=== PATIENT | male | born 1955 | race Caucasian/White ===

== ENCOUNTER 2020-11-27 07:22 | Outpatient (REF) | payer OTHER, SELFPAY ==
[2020-11-27 08:09] LABS: MANUAL DIFF FLAG NO
[2020-11-27 08:16] LABS: Basophils Absolute Auto 0.1 X10*3/uL (0.0-0.2); Basophils Percent Auto 0.9 % (0-2); Eosinophils Absolute Auto 0.2 X10*3/uL (0.0-0.4); Eosinophils Percent Auto 2.8 % (0-4); Hematocrit 49.8 % (42-52); Hemoglobin 17.3 g/dl (14.0-18.0); Imm Gran Abs Auto 0.03 X10*3/uL (0.00-0.03); Imm Gran Pct Auto 0.4 % (0.0-0.4); Lymphocytes Absolute Auto 1.4 X10*3/uL (1.2-4.9); Lymphocytes Percent Auto 18.4 % (20-40); Mean Corpuscular HGB Conc 34.7 g/dl (31.0-36.0); Mean Corpuscular Hemoglobin 31.1 pg (27.0-33.0); Mean Corpuscular Volume 89.6 fL (80-98); Mean Platelet Volume 10.9 fL (9.4-12.4); Monocytes Absolute Auto 0.5 X10*3/uL (0.1-1.2); Monocytes Percent Auto 6.4 % (2-11); Neutrophils Absolute Auto 5.4 X10*3/uL (2.0-8.3); Neutrophils Percent Auto 71.1 % (45-73); Platelet Count 186 X10*3/uL (160-400); Red Blood Count 5.56 X10*6/uL (4.60-5.80); Red Cell Distribution Width 12.2 % (11.0-16.0); White Blood Count 7.5 X10*3/uL (4.8-10.8)
[2020-11-27 08:28] LABS: Estimated Average Glucose 117 mg/dL; Hemoglobin A1c % 5.7 %
[2020-11-27 08:33] LABS: Glucose Urine UA NEG (NEG); Leukocyte Esterase Urine NEG (NEG); Nitrite Urine NEG (NEG); Specific Gravity - Urine 1.025 (1.005-1.025); Urine Blood NEG (NEG); Urine Ketones NEG (NEG); Urine Protein NEG (NEG-TRACE)
[2020-11-27 08:46] LABS: RBC Urine 0 /HPF (0); WBC Urine 0 /HPF (0-4)
[2020-11-27 08:47] LABS: Alanine Aminotransferase 37 U/L (0-40); Albumin Level 4.5 g/dL (3.5-5.0); Alkaline Phosphatase 74 U/L (39-117); Anion Gap 15 (12-20); Aspartate Amino Transferase 32 U/L (5-37); Bilirubin Total 2.1 mg/dL (0.0-1.0); Blood Urea Nitrogen 20 mg/dL (9-16); Calcium 9.2 mg/dL (8.4-10.2); Carbon Dioxide 27 mmol/L (22-29); Chloride 101 mmol/L (96-108); Cholesterol 124 mg/dL; Estimated Glomerular Filt Rate > 60; Glucose Fasting 115 mg/dL (60-99); HDL Cholesterol 40 mg/dL; LDL Cholesterol Calculated 55 mg/dl; Potassium 5.1 mmol/l (3.3-5.1); Sodium 138 mmol/L (135-145); Total Protein 7.7 g/dL (6.5-8.0); Triglycerides 148 mg/dL; Uric Acid 7.8 mg/dL (3.4-7.0)
[2020-11-27 08:55] LABS: Appearance Urine CLEAR; Color Urine YELLOW
[2020-11-27 09:01] LABS: Creatinine Urine 170.22 mg/dL; Microalbum/Creatinine Ratio Ur 9.3 ug/mg cr
[2020-11-27 09:08] LABS: Thyroid Stimulating Hormone 0.61 uIU/mL (0.32-4.0); Vitamin D 25-OH Total 38.1 ng/mL (>30)
== END 2020-11-27 07:23 | disposition home or self-care (01) ==
LOC: HO.LAB 07:22
PROVIDERS: PCP Internal Medicine; Visit Provider Internal Medicine
DX: Z00.00 Encounter for general adult medical examination without abnormal findings (principal); I10 Essential (primary) hypertension; E11.9 Type 2 diabetes mellitus without complications; M70.22 Olecranon bursitis, left elbow
CPT/HCPCS: 36415; 80053; 80061; 81001; 82043; 82306; 83036; 84443; 84550; 85025

== ENCOUNTER 2021-10-04 13:51 | Outpatient (REF) | payer OTHER, SELFPAY ==
--- NOTE | ~2021-10-04 | CT_ITS ---
EXAMINATION: CT CHEST SCREENING CLINICAL INFORMATION: Current smoker. 23 pack-year history. COMPARISON: None. TECHNIQUE: Multidetector volumetric CT imaging of the chest is performed without contrast using low dose technique. Additional 2D coronal and sagittal reformatted images and axial 3D maximum intensity projection (MIP) images are generated on the CT workstation. This CT examination was performed using dose optimization techniques as appropriate, variously including the following: *Automated exposure control *Adjustment of mA and/or kV according to patient size (this includes techniques or standardized protocols for targeted exams where dose is matched to indication/reason for exam; i.e. extremities or head) *Use of iterative reconstruction technique DLP: 53 mGy-cm FINDINGS: LUNGS: There is evidence of emphysema. There are 2 small 2 mm peripheral or subpleural left lower lobe nodules adjacent to the fissure axial image 251 and 216 series 5. There is a 2 mm peripheral or subpleural left lower lobe nodule axial image 306 series 5. The lungs are otherwise clear. No endobronchial or endotracheal lesion is seen. MEDIASTINUM: There is coronary artery calcification. The mediastinum is otherwise normal. PLEURA: There is no pleural effusion. No pleural mass or thickening. AXILLA: No lymphadenopathy. UPPER ABDOMEN: The gallbladder has been removed. There are calcifications in both kidneys probably representing vascular calcifications. OSSEOUS STRUCTURES: There are degenerative changes of the spine. CT/CT lung screening IMPRESSION: Mild emphysema. Small left lower lobe pulmonary nodules or micronodules probably representing subpleural lymph nodes. Coronary artery calcification. ASSESSMENT: Lung-RADS category 2: Benign RECOMMENDATION: Annual low-dose chest CT follow-up recommended.
== END 2021-10-04 13:52 | disposition home or self-care (01) ==
LOC: HO.CT 13:51
PROVIDERS: PCP Internal Medicine; Visit Provider Physician Assistant Medical
DX: Z87.891 Personal history of nicotine dependence (principal)
CPT/HCPCS: 71271; G0296

== ENCOUNTER 2021-11-15 10:49 | Day surgery (SDC) | payer OTHER, SELFPAY ==
[2021-11-08 16:08] VITALS: BMI 26.4
[2021-11-08 16:19] VITALS: BMI 25.8
--- NOTE | 2021-11-13 13:43 | HO.ANESPROP2 ---
Documented by User: Zahra Rodas NP 11/13/21 13:44 HPI - Anesthesia Eval Consult details Narrative: 66yo M for Colonoscopy PMFSH Active Problems Active Problems: All Active Problems (Updated 11/08/21 @ 16:18 by Tran Hawkins, RN) Personal history of nicotine dependence (Acute) Past Medical History Medical History (Updated 11/08/21 @ 16:18 by Tran Hawkins, RN) Diabetes mellitus type 2, diet-controlled (~2014) Hypertension Personal history of nicotine dependence PONV (postoperative nausea and vomiting) Tubular adenoma of colon (~2017) Family History Family History (Updated 09/19/21 @ 14:04 by Virginie Saunders PA-C) Father Hypertension DM2 (diabetes mellitus, type 2) Mother DM2 (diabetes mellitus, type 2) Hypertension Hemochromatosis Brother DM2 (diabetes mellitus, type 2) Sister DM2 (diabetes mellitus, type 2) Surgical History Surgical History (Updated 11/08/21 @ 16:18 by Tran Hawkins RN) History of cataract surgery History of cholecystectomy History of colonoscopy History of nasal septoplasty Hx of bilateral cataract extraction S/P tendon repair Social History Social History (Updated 10/04/21 @ 13:53 by Virginie Saunders PA-C) Alcohol intake: current Alcohol intake frequency: does not drink Patient Tobacco Use Status: Former Tobacco user Quit Date: 2009 Tobacco use type: Cigarette Years Smoked: 25pyh, onset 25yo, 3/4-1ppd x 30yrs, quit 2009 Have you been hit, kicked, punched, or otherwise hurt by someone within the past year? If so, by whom?: No Are you DNR?: No Advance Directives: No Advance Directives Information Provided: Yes Advance Directives on File: No Meds Allergies Allergy/AdvReac Type Severity Reaction Status Date / Time No Known Allergies Allergy Verified 11/08/21 16:19 [No Known Allergies*] Home Medications Medication Instructions Recorded Confirmed Last Taken Type atorvastatin 10 mg tablet 1 tab PO DAILY 11/08/21 11/08/21 Unknown History cholecalciferol (vitamin D3) 50 50 mcg PO DAILY 11/08/21 11/08/21 Unknown History mcg (2,000 unit) capsule (Vitamin D3) lisinopril 10 mg tablet 1 tab PO DAILY 11/08/21 11/08/21 Unknown History Exam Exam Date and Time: November 13, 2021 1343 Height,Weight and Vital Signs: Height 5 ft 8 in Weight 77.111 kg Assessment and Plan Assessment Anesthesia Assessment: Chart Reviewed Documented by User: Hailey Sherwood MD 11/15/21 11:09 [facility] Past Medical History Medical History (Updated 11/08/21 @ 16:18 by Tran Hawkins, LOI) Diabetes mellitus type 2, diet-controlled (~2014) Hypertension Personal history of nicotine dependence PONV (postoperative nausea and vomiting) Tubular adenoma of colon (~2017) Family History Family History (Updated 09/19/21 @ 14:04 by Virginie Saunders PA-C) Father Hypertension DM2 (diabetes mellitus, type 2) Mother DM2 (diabetes mellitus, type 2) Hypertension Hemochromatosis Brother DM2 (diabetes mellitus, type 2) Sister DM2 (diabetes mellitus, type 2) Family history of problems with anesthesia: No Surgical History Surgical History (Updated 11/08/21 @ 16:18 by Tran Hawkins RN) History of cataract surgery History of cholecystectomy History of colonoscopy History of nasal septoplasty Hx of bilateral cataract extraction S/P tendon repair History of Problems with Anesthesia: No Social History Social History (Updated 10/04/21 @ 13:53 by Virginie Saunders PA-C) Alcohol intake: current Alcohol intake frequency: does not drink Patient Tobacco Use Status: Former Tobacco user Quit Date: 2009 Tobacco use type: Cigarette Years Smoked: 25pyh, onset 25yo, 3/4-1ppd x 30yrs, quit 2009 Have you been hit, kicked, punched, or otherwise hurt by someone within the past year? If so, by whom?: No Are you DNR?: No Advance Directives: No Advance Directives Information Provided: Yes Advance Directives on File: No Meds Allergies Allergy/AdvReac Type Severity Reaction Status Date / Time No Known Allergies Allergy Verified 11/08/21 16:19 [No Known Allergies*] Home Medications Medication Instructions Recorded Confirmed Last Taken Type atorvastatin 10 mg tablet 1 tab PO DAILY 11/08/21 11/08/21 Unknown History cholecalciferol (vitamin D3) 50 50 mcg PO DAILY 11/08/21 11/08/21 Unknown History mcg (2,000 unit) capsule (Vitamin D3) lisinopril 10 mg tablet 1 tab PO DAILY 11/08/21 11/08/21 Unknown History Exam Airway Mallampati Class: II TM Dist: >3cm Neck ROM: Full Heart: rrr Lungs: cta Assessment and Plan Assessment Anesthesia Assessment: Anesthesia Plan Discussed and Chart Reviewed Final Anesthetic Review Family History of Problems with Anesthesia: No History of Problems with Anesthesia: No NPO: Yes ASA Class: II Final Preanesthetic Review: No Changes in Pt Med Stat, Meds/Allgs Chart Reviewed and Consent Obtained/Reviewed Patient Risk: Intermediate Procedure Risk: Intermediate Anesthetic Plan Anesthetic Plan: MAC: Disposition: Standard PACU
[2021-11-15 11:13] VITALS: BP 155/84; PULSE 77; RESP 16; TEMP 36.8; O2SAT 98
[2021-11-15] MEDS: Lactated Ringers 1,000 ML 100 ML IVCONT (11:26)
[2021-11-15 13:04] VITALS: BP 108/60; PULSE 65; RESP 16; TEMP 36.8; O2SAT 98
--- NOTE | 2021-11-15 13:07 | PM.OP ---
Brief Operative Note Date of Service: 11/15/21 Pre-op diagnosis: Screening Post-op diagnosis: other (Colon polyps) Procedure: Colonoscopy to cecum and TI with biopsy and removal of polyps Surgeon: Robbie Singh Anesthesia: MAC Was an Loan Servicing Representative used for this Procedure?: No Estimated blood loss (mL): 2.0 Pathology: other (A. Transverse colon polyps B. Ascending colon polyp C. Polyps at 20cm) Condition: stable Disposition: PACU
[2021-11-15 13:19] VITALS: BP 122/70; PULSE 60; RESP 16; TEMP 36.8; O2SAT 98
--- NOTE | 2021-11-15 20:39 | OP_ITS ---
SURGEON: Robbie Singh MD INDICATIONS: The patient presents for evaluation of colorectal cancer screening and personal history of tubular adenoma of the colon. Full consent has been obtained from him for this, including risks of bleeding and perforation. PREOPERATIVE DIAGNOSIS: POSTOPERATIVE DIAGNOSIS: PROCEDURE PERFORMED: Colonoscopy to cecum and terminal ileum with biopsy and removal of polyps. ESTIMATED BLOOD LOSS: COMPLICATIONS: ANESTHESIA: Monitored anesthesia care. ASSISTANTS: SPECIMENS: PREOPERATIVE DIAGNOSES: Colorectal cancer screening and personal history of tubular adenoma of the colon. POSTOPERATIVE DIAGNOSES: Colorectal cancer screening and personal history of tubular adenoma of the colon, small colon polyps, diverticulosis, and small internal hemorrhoids. DESCRIPTION OF PROCEDURE: The patient was placed in the left lateral decubitus position. The digital rectal exam revealed no abnormalities. The Olympus video pediatric colonoscope was entered into the rectum and advanced easily to the cecum. Once in the cecum, I did identify normal-appearing cecal pouch with appendiceal orifice and a normal-appearing ileocecal valve. The terminal ileum was cannulated and appeared normal. Scope was withdrawn back in the colon. The entire cecum and ileocecal valve appeared normal. The scope was slowly withdrawn assessing all mucosal surfaces carefully. Preparation was excellent. In the ascending colon, transverse colon, and at 20 cm, were flat less than 5 mm polyps, which were all biopsied and completely removed with cold biopsy forceps. There was no sign of any colitis nor angiodysplasia. There was a mild amount of sigmoid diverticulosis. In the rectum, scope was retroflexed visualizing small internal hemorrhoids, but no other pathology. The rectal mucosa appeared normal. The scope was straightened out and withdrawn from the patient. He tolerated the procedure well and was returned to the recovery area in stable condition. IMPRESSION: 1. Small colon polyps, status post biopsy and removal. 2. Diverticulosis. 3. Internal hemorrhoids. PLAN: The results of the biopsies will be checked. Given his previous history and today's findings, I would recommend a repeat colonoscopy within 5 years for further screening purposes. He will otherwise see me on a p.r.n. basis. This has been discussed with his . MD REED Duarte/MEGANL / [id number]
== END 2021-11-15 13:45 | disposition home or self-care (01) ==
PROVIDERS: PCP Internal Medicine; Visit Provider Internal Medicine
PROC: 0DJD8ZZ Inspection of Lower Intestinal Tract, Via Natural or Artificial Opening Endoscopic (ICD-10-PCS; CPT 45378; principal; 2021-11-15 12:10)
DX: Z12.11 Encounter for screening for malignant neoplasm of colon (principal); Z86.010 Personal history of colon polyps; D12.2 Benign neoplasm of ascending colon; D12.3 Benign neoplasm of transverse colon; D12.5 Benign neoplasm of sigmoid colon; K57.30 Diverticulosis of large intestine without perforation or abscess without bleeding; K64.8 Other hemorrhoids; E11.9 Type 2 diabetes mellitus without complications; I10 Essential (primary) hypertension; Z79.899 Other long term (current) drug therapy; Z87.891 Personal history of nicotine dependence; Z90.49 Acquired absence of other specified parts of digestive tract
CPT/HCPCS: 45380; 88305; J3010

== ENCOUNTER 2021-12-19 07:34 | Outpatient (REF) | payer OTHER, SELFPAY ==
[2021-12-19 07:59] LABS: MANUAL DIFF FLAG NO
[2021-12-19 08:38] LABS: Basophils Absolute Auto 0.1 X10*3/uL (0.0-0.2); Basophils Percent Auto 0.7 % (0-2); Eosinophils Absolute Auto 0.2 X10*3/uL (0.0-0.4); Eosinophils Percent Auto 2.6 % (0-4); Hemoglobin 16.6 g/dl (14.0-18.0); Imm Gran Abs Auto 0.06 X10*3/uL (0.00-0.03); Imm Gran Pct Auto 0.9 % (0.0-0.4); Lymphocytes Absolute Auto 1.3 X10*3/uL (1.2-4.9); Lymphocytes Percent Auto 18.3 % (20-40); Mean Corpuscular HGB Conc 33.9 g/dl (31.0-36.0); Mean Corpuscular Hemoglobin 30.6 pg (27.0-33.0); Mean Corpuscular Volume 90.4 fL (80.0-98.0); Monocytes Absolute Auto 0.4 X10*3/uL (0.1-1.2); Monocytes Percent Auto 5.9 % (2-11); Neutrophils Percent Auto 71.6 % (45-73); Platelet Count 236 X10*3/uL (160-400); Red Blood Count 5.42 X10*6/uL (4.60-5.80); Red Cell Distribution Width 12.2 % (11.0-16.0); White Blood Count 6.9 X10*3/uL (4.8-10.8)
[2021-12-19 08:57] LABS: Estimated Average Glucose 137 mg/dL; Hemoglobin A1c % 6.4 %
[2021-12-19 09:02] LABS: Appearance Urine CLEAR; Color Urine YELLOW; Glucose Urine UA NEG (NEG); Leukocyte Esterase Urine NEG (NEG); Nitrite Urine NEG (NEG); Specific Gravity - Urine >= 1.030 (1.005-1.025); Urine Blood NEG (NEG); Urine Ketones NEG (NEG); Urine Protein NEG (NEG-TRACE)
[2021-12-19 09:25] LABS: PSA,Total (Free>4and<10) 0.33 ng/mL (0.00-4.00); Thyroid Stimulating Hormone 0.63 uIU/mL (0.32-4.0); Vitamin D 25-OH Total 36.2 ng/mL (>30)
[2021-12-19 09:28] LABS: Creatinine Urine 190.44 mg/dL
[2021-12-19 09:50] LABS: Alanine Aminotransferase 31 U/L (0-40); Albumin Level 4.3 g/dL (3.5-5.0); Alkaline Phosphatase 74 U/L (39-117); Anion Gap 12 (12-20); Aspartate Amino Transferase 26 U/L (5-37); Bilirubin Total 1.5 mg/dL (0.0-1.0); Blood Urea Nitrogen 19 mg/dL (9-16); Calcium 9.9 mg/dL (8.4-10.2); Carbon Dioxide 29 mmol/L (22-29); Chloride 105 mmol/L (96-108); Cholesterol 123 mg/dL; Estimated Glomerular Filt Rate 55; Glucose Fasting 135 mg/dL (60-99); HDL Cholesterol 36 mg/dL; LDL Cholesterol Calculated 70 mg/dl; Potassium 6.1 mmol/L (3.3-5.1); Sodium 140 mmol/L (135-145); Total Protein 7.6 g/dL (6.5-8.0); Triglycerides 86 mg/dL
== END 2021-12-19 07:35 | disposition home or self-care (01) ==
LOC: HO.LAB 07:34
PROVIDERS: PCP Internal Medicine; Visit Provider Internal Medicine
DX: Z12.5 Encounter for screening for malignant neoplasm of prostate (principal); I10 Essential (primary) hypertension; E11.9 Type 2 diabetes mellitus without complications; Z87.891 Personal history of nicotine dependence
CPT/HCPCS: 36415; 80053; 80061; 81003; 82043; 82306; 83036; 84153; 84443; 85025

== ENCOUNTER 2021-12-19 14:14 | Emergency (ER) | payer OTHER, SELFPAY ==
[2021-12-19 14:44] VITALS: BP 148/78; PULSE 68; RESP 19; TEMP 36.6; O2SAT 99; BMI 26.6
--- NOTE | 2021-12-19 14:49 | ECG_ITS ---
Test Reason : high k Blood Pressure : / mmHG Vent. Rate : 064 BPM Atrial Rate : 064 BPM P-R Int : 204 ms QRS Dur : 096 ms QT Int : 414 ms P-R-T Axes : 041 -21 041 degrees QTc Int : 427 ms Normal sinus rhythm Normal ECG When compared with ECG of 29-JUL-2015 21:17, Vent. rate has decreased BY 37 BPM Nonspecific T wave abnormality no longer evident in Lateral leads Referred By: Generic ED Physician Electronically Signed By:Adair Marin
[2021-12-19 15:03] LABS: MANUAL DIFF FLAG NO
[2021-12-19 15:05] LABS: Basophils Absolute Auto 0.1 X10*3/uL (0.0-0.2); Basophils Percent Auto 0.7 % (0-2); Eosinophils Absolute Auto 0.2 X10*3/uL (0.0-0.4); Eosinophils Percent Auto 2.5 % (0-4); Hemoglobin 16.4 g/dl (14.0-18.0); Imm Gran Abs Auto 0.06 X10*3/uL (0.00-0.03); Imm Gran Pct Auto 0.8 % (0.0-0.4); Lymphocytes Absolute Auto 1.7 X10*3/uL (1.2-4.9); Lymphocytes Percent Auto 23.3 % (20-40); Mean Corpuscular HGB Conc 35.7 g/dl (31.0-36.0); Mean Corpuscular Hemoglobin 31.8 pg (27.0-33.0); Mean Corpuscular Volume 89.3 fL (80.0-98.0); Mean Platelet Volume 9.6 fL (9.4-12.4); Monocytes Absolute Auto 0.5 X10*3/uL (0.1-1.2); Monocytes Percent Auto 7.1 % (2-11); Neutrophils Absolute Auto 4.7 x10*3/uL (2.0-8.3); Neutrophils Percent Auto 65.6 % (45-73); Platelet Count 217 X10*3/uL (160-400); Red Blood Count 5.15 X10*6/uL (4.60-5.80); Red Cell Distribution Width 12.2 % (11.0-16.0); White Blood Count 7.1 X10*3/uL (4.8-10.8)
[2021-12-19 15:16] VITALS: BP 127/67; PULSE 63; RESP 18; TEMP 36.6; O2SAT 99
[2021-12-19 15:21] LABS: Anion Gap 11 (12-20); Blood Urea Nitrogen 18 mg/dL (9-16); Calcium 9.7 mg/dL (8.4-10.2); Carbon Dioxide 30 mmol/L (22-29); Chloride 105 mmol/L (96-108); Creatinine Clr Calc Pharmacy 57.8; Estimated Glomerular Filt Rate > 60; Glucose Random 103 mg/dL (60-115); Potassium 4.6 mmol/L (3.3-5.1); Sodium 141 mmol/L (135-145)
[2021-12-19 15:24] LABS: Troponin-I High Sensitivity 6.4 ng/L (<3.5-35.0)
--- NOTE | 2021-12-19 15:45 | ED.RECABL ---
HPI - Recheck/Abnormal Lab/Rx General Chief Complaint: Recheck/Abnormal Lab/Rx Stated Complaint: Abnormal labs/high potassium Time Seen by Provider: 12/19/21 14:59 Source: patient Mode of arrival: ambulatory Limitations: no limitations History of Present Illness HPI narrative: 66-year-old male with a history of hypertension on lisinopril and hyperlipidemia taking atorvastatin who was sent to the emergency department by his PCP for evaluation of an elevated potassium of 6.1. The patient states that he was feeling fine and had no symptoms. He states that he got his routine blood work in preparation for his examination with his PCP. He was then contacted and informed that his potassium was high and a go to the emergency department. The patient states he has been compliant with his medications. He denied fever, chills, chest pain, shortness of breath. He denied weakness, lightheadedness or dizziness. Related Data Home Medications Medication Instructions Recorded Confirmed atorvastatin 10 mg tablet 1 tab PO DAILY 11/08/21 11/08/21 cholecalciferol (vitamin D3) 50 50 mcg PO DAILY 11/08/21 11/08/21 mcg (2,000 unit) capsule (Vitamin D3) lisinopril 10 mg tablet 1 tab PO DAILY 11/08/21 11/08/21 Allergies Allergy/AdvReac Type Severity Reaction Status Date / Time No Known Allergies Allergy Verified 11/08/21 16:19 [No Known Allergies*] Review of Systems Review of Systems: Yes all other systems are reviewed and are negative [facility] Past Medical History Medical History Diabetes mellitus type 2, diet-controlled (~2014) High cholesterol Hypertension Personal history of nicotine dependence PONV (postoperative nausea and vomiting) Tubular adenoma of colon (~2017) Surgical History History of cataract surgery History of cholecystectomy History of colonoscopy History of nasal septoplasty Hx of bilateral cataract extraction S/P tendon repair Family History Family History Father Hypertension DM2 (diabetes mellitus, type 2) Mother DM2 (diabetes mellitus, type 2) Hypertension Hemochromatosis Brother DM2 (diabetes mellitus, type 2) Sister DM2 (diabetes mellitus, type 2) Social History Social History Alcohol intake: current Alcohol intake frequency: does not drink Patient Tobacco Use Status: Former Tobacco user Quit Date: 2009 Tobacco use type: Cigarette Years Smoked: 25pyh, onset 25yo, 3/4-1ppd x 30yrs, quit 2009 Advance Directives: No Advance Directives Information Provided: Yes Physical Exam Vital Signs: Vital Signs: Last Vital Signs Temp 97.9 F 12/19/21 15:16 Pulse 63 12/19/21 15:16 Resp 18 12/19/21 15:16 BP 127/67 12/19/21 15:16 Pulse Ox 99 12/19/21 15:16 BMI result Body Mass Index 26.6 Const: General: cooperative and no acute distress Orientation/consciousness: oriented to person and oriented to place Limitations: no limitations HENMT: Head: Yes normal to inspection, Yes normocephalic and Yes atraumatic Ears: external ears normal General nose exam: Normal external nose present Face and sinus: Yes normal facial exam Mouth: Normal oral and palatal mucosa present Throat: Yes posterior oropharynx normal Eyes: General: appearance normal, both eyes and all related structures Pupils: Equal, round and reactive pupils present Neck: Neck: Yes normal visual inspection, Yes no lymphadenopathy, Yes trachea midline and Yes supple Chest: Chest palpation & inspection: normal inspection of the chest and normal palpation of entire chest wall Resp: Effort & Inspection: normal respiratory effort and able to speak in complete sentences Auscultation: clear to auscultation bilaterally Cardio: Rate: regular rate Rhythm: regular rhythm Heart sounds: S1 normal heart sound present, S2 normal heart sound present and no murmurs GI: Inspection: Yes normal to inspection Palpation (GI): Soft to palpation, nontender and no guarding Auscultation: normal bowel sounds : General: Yes no CVA tenderness Back/Spine/Pelvis: Back: no CVA tenderness Skin: General skin exam: no rashes or lesions noted Neuro: General: oriented to person and oriented to place Cranial nerves: Yes Equal, round and reactive pupils present Cognition (Neuro): normal cognition Motor exam (neuro): 5/5 motor strength present throughout Extrem: General: Yes normal to inspection Psych: Appearance: grossly normal Speech and movement: Normal speech and movement present Affect: normal affect Attitude: cooperative Thought process: Normal thought process present Thought content: Normal thought content present Course Course Course Narrative: 66-year-old man who presents emergency department for evaluation of an elevated potassium of 6.1 that was obtained on routine blood work that he did today prior to his PCP visit. The patient was asymptomatic. The patient has not had any change in his diet and not using any potassium salt substitutes. His vital signs were normal except for a slight elevation is blood pressure of 148/78 and repeat was normal at 127/67. Physical examination was normal. Repeat BMP revealed a BUN of 18 with a creatinine of 1.19 and a potassium of 4.6. At this time, I believe that the patient's initial potassium 6.1 may have been lab error secondary to hemolysis. I did discuss this with the patient. He was advised to continue taking his medications as prescribed by his PCP and he was discharged home. MDM - Recheck/Abnormal Lab/Rx Lab Data Result diagrams: 12/19/21 14:59 12/19/21 14:59 Labs: Lab Results 12/19/21 12/19/21 12/19/21 Range/Units 14:59 14:59 14:59 WBC 7.1 (4.8-10.8) X10*3/uL RBC 5.15 (4.60-5.80) X10*6/uL Hgb 16.4 (14.0-18.0) g/dl Hct 46.0 (42.0-52.0) % MCV 89.3 (80.0-98.0) fL MCH 31.8 (27.0-33.0) pg MCHC 35.7 (31.0-36.0) g/dl RDW 12.2 (11.0-16.0) % Plt Count 217 (160-400) X10*3/uL MPV 9.6 (9.4-12.4) fL Immature Gran % (Auto) 0.8 H (0.0-0.4) % Neut % (Auto) 65.6 (45-73) % Lymph % (Auto) 23.3 (20-40) % [place] % (Auto) 7.1 (2-11) % Eos % (Auto) 2.5 (0-4) % Baso % (Auto) 0.7 (0-2) % Lymph # (Auto) 1.7 (1.2-4.9) X10*3/uL [place] # (Auto) 0.5 (0.1-1.2) X10*3/uL Eos # (Auto) 0.2 (0.0-0.4) X10*3/uL Baso # (Auto) 0.1 (0.0-0.2) X10*3/uL Abs Immat Gran (auto) 0.06 H (0.00-0.03) X10*3/uL Absolute Neuts (auto) 4.7 (2.0-8.3) x10*3/uL Absolute Nucleated RBC 0.000 (0.0-0.012) X10*3/uL Nucleated RBC % (auto) 0.0 (0.0-0.2) /100WBC Sodium 141 (135-145) mmol/L Potassium 4.6 D (3.3-5.1) mmol/L Chloride 105 (96-108) mmol/L Carbon Dioxide 30 H (22-29) mmol/L Anion Gap 11 L (12-20) BUN 18 H (9-16) mg/dL Creatinine 1.19 (0.5-1.4) mg/dL Estim Creat Clear Calc 57.8 Estimated GFR > 60 Random Glucose 103 (60-115) mg/dL Calcium 9.7 (8.4-10.2) mg/dL Troponin I High Sens 6.4 (<3.5-35.0) ng/L ECG Data Attestation: I personally reviewed and interpreted this ECG as follows: Interpretation: 1450: Sinus rhythm with a first-degree AV block with a CT interval of 204 milliseconds, normal QRS and QTC intervals, no ST segment elevation, no ST segment depression, 1 peaked T-wave in V4 otherwise no other significant T-wave abnormalities, no PACs no PVCs. Discharge Plan Discharge Clinical Impression: Abnormal laboratory test result Patient Disposition: Home, Self-Care Additional Instructions: Your initial potassium on your routine blood work today was 6.1. The normal range her tasks cm is 3.3-5.1. Your repeat potassium here in the emergency department was 4.6. Which is normal. On both of your lab test today your kidney functions were normal. The rest of your outpatient labs were normal as well. Most likely, the elevated potassium was due to hemolysis (breaking up of the red blood cells going through the needle used to draw your blood ) when your blood was drawn causing a falsely elevated potassium. Follow-up with your doctor in as scheduled.. Please return to the emergency department if you get any symptoms that are concerning to you. Prescriptions: No Action atorvastatin 10 mg tablet 1 tab PO DAILY RF: 0 lisinopril 10 mg tablet 1 tab PO DAILY RF: 0 cholecalciferol (vitamin D3) [Vitamin D3] 50 mcg (2,000 unit) Capsule 50 mcg PO DAILY RF: 0
== END 2021-12-19 16:05 | disposition home or self-care (01) ==
PROVIDERS: Emergency Provider Emergency Medicine Emergency Medical Services; PCP Internal Medicine
DX: R79.9 Abnormal finding of blood chemistry, unspecified (principal); I10 Essential (primary) hypertension; E11.9 Type 2 diabetes mellitus without complications; E78.5 Hyperlipidemia, unspecified; Z79.899 Other long term (current) drug therapy; Z79.02 Long term (current) use of antithrombotics/antiplatelets
CPT/HCPCS: 36415; 80048; 84484; 85025; 93005; 99283; 99284

== ENCOUNTER → 2022-01-28 14:29 | Outpatient (BNVA) | payer OTHER, SELFPAY | PROVIDERS: PCP Internal Medicine; Visit Provider Internal Medicine ==

== ENCOUNTER → 2022-02-25 13:27 | Outpatient (BNVA) | payer OTHER, SELFPAY | PROVIDERS: PCP Internal Medicine; Visit Provider Internal Medicine | DX: Z13.89 Encounter for screening for other disorder (principal) ==

== ENCOUNTER → 2022-04-10 07:16 | Outpatient (REF) | payer OTHER, SELFPAY ==
--- NOTE | ~2022-04-10 | NM_ITS ---
Exercise Myocardial perfusion study Indication: Atherosclerotic heart disease Technique: The patient was brought in for an exercise perfusion study on 04/10/2022. Patient performed exercise as per Moshe protocol and was injected 30 mCi of sestamibi was given intravenously one target HR was achieved. Images were obtained using the SPECT gamma camera interlaced with the gating device. Images were obtained in supine position. Resting perfusion study was performed on 04/11/2022. Patient was administered 30 mCi of sestamibi intravenously at rest. Images were then obtained in supine position. Images obtained with and without CT attenuation. Total DLP 93 mGy-cm. Images were processed with the software and compared side to side in short axis, horizontal long axis and vertical long axis views. Findings: The stress perfusion study showed non attenuated images show some thinning of the basal inferior and inferoseptal wall of the LV myocardium. Remainder of the LV myocardium is normally attenuation corrected images show mildly reduced uptake in the apex of the LV myocardium.. The gated study shows normal LV systolic function with calculated LVEF of greater than 70 %. LV cavity is normal in size. The gated study shows normal systolic wall thickening and contraction of all segments. There is no transient ischemic dilation. Resting study shows non attenuated images show basal inferior wall uptake. Attenuation corrected images show improved uptake in the apex and distal inferior wall.. Gating at rest reveals normal systolic wall motion with ejection fraction at 66%. The findings are consistent with attenuated corrected images are equivocal for possible small area of mild intensity distal anterior and apical reversible ischemia. NM/NM cardiolite stress test Impression: 1. Equivocal distal anterior and apical ischemia 2. Gated LVEF is 66% 3. Transient ischemic dilatation not present Stress EKG is negative for ischemia
--- NOTE | 2022-04-10 07:19 | CA_ITS ---
Transthoracic Echocardiogram Patient (Last, First, Middle): Carson Manzanares, Gender: Male Date of : 1955 Age: 66 Procedure Date: 04/10/2022 Procedure Type: Transthoracic Echocardiogram Location: OP Height: 170.18 cm Weight: 78.02 kg BSA: 1.90 m2 Heart Rate: bpm BP: 132 / 68 mmHg Chief Contract Officer: SB Referring MD: Rodrigo Will MD Rustic Terrazzo Setter: Pipe Tafoya MD Symptoms: I25.10 - Atherosclerotic heart disease of [place] coronary... Study Quality: Adequate ECG Rhythm: Sinus Conclusions: - 1. Normal LV systolic function with impaired relaxation filling pattern suggestion of increased filling pressures with regional wall motion abnormality 2. Trivial aortic regurgitation 3. Normal RV systolic pressure 4. No pericardial effusion Findings Left Ventricle Normal left ventricular size, thickness, and systolic function. The visually estimated ejection fraction is between 60-65%. Spectral Doppler is indicative of an impaired relaxation filling pattern. Elevated filling pressures. Wall Motion Rest Echo Findings The basal inferior segment is akinetic. All other scored wall segments showed normal motion. Right Ventricle Normal right ventricular cavity size and systolic function. Atria The left atrium is likely dilated. The right atrium is normal in size. Aortic Valve There is mild calcification of the aortic valve. There is no aortic valve stenosis. There is trace (trivial) aortic valve regurgitation. Mitral Valve There is mild anterior and moderate posterior mitral leaflet thickening. There is moderate mitral annular calcification. There is trace mitral valve regurgitation. There is no mitral valve stenosis. Pulmonic Valve The pulmonic valve was not well visualized. Tricuspid Valve There is trace tricuspid valve regurgitation. Normal right atrial pressure. There is no evidence of pulmonary hypertension. Great Vessels All visible segments of the aorta are normal in size. The pulmonary artery was not well visualized. Venous The inferior vena cava is normal in size and collapses greater than 50% with inspiration. Pericardium/Pleural There is no evidence of pericardial effusion. Prior Study Comparison no previous study in the last 5 years for comparison Measurements 2D Linear Measurements IVSd: 1.18 0.6-0.9/0.6-1.0 cm LVIDd: 4.75 3.9-5.3/4.2-5.9 cm LVIDd Index: 2.50 2.4-3.2/2.2-3.1 cm/m2 LVIDs: 2.66 2.0-3.6 cm LVPWd: 0.81 0.7-1.1 cm LA Diam: 4.20 2.7-3.8/3.0-4.0 cm LAIDs Index: 2.21 1.5-2.3 cm/m2 LV Mass: 207.25 67-162/88-224 g LV Mass Index: 109.08 43-95/49-115 g/m2 LVOT Diam: 2.20 3.0+(-)1.3 cm 2D Systolic Function EF 4C: 67.50 >55% EF 2C: 58.80 >55% EF BiP: 65.20 >55% Mitral Valve MV Pk E: 0.88 MV PK A: 1.14 MV Decel Time: 228.00 E/A: 0.80 E'Lateral: 5.11 E'Medial: 4.24 E/E' Med: 20.80 E/E' Lat: 17.30 PHT: 67.00 MVA PHT: 3.28 Decel Fallon: 3.86 Aortic Valve AoV Pk Cal: 1.35 AoV Mn Cal: 0.89 AoV VTI: 0.27 AoV Pk Grad: 7.00 Aov Mn Grad: 4.00 CHRISTOPHER Cont.VTI: 3.34 LVOT LVOT Pk Cal: 1.06 LVOT Mn Cal: 0.72 LVOT VTI: 0.24 LVOT Pk Grad: 4.00 LVOT Mn Grad: 2.00 LVOT Diam: 2.20 LVOT Area: 3.80 Diastolic Function MV Pk E: 0.88 MV Pk A: 1.14 E/A: 0.80 E'Medial: 4.24 E/E' Med: 20.80 E' Laterial: 5.11 E/E' Lat: 17.30 Right Ventricle TAPSE (mm): 19.80 TVS' Cal: 8.60 Tricuspid Valve TR Pk Cal: 2.14 TR Pk Grad: 18.00 RA Press: 3.00 RVSP: 21.00 Great Vessels Aorta Sinus of Valsalva: 3.45 2.0-3.[address] [place]: 3.09 1.7-3.4 cm Ao Asc: 3.70 2.1-3.4 cm Pulmonary Veins Pulm Vein S/D 2.00 Pulmonary Valve PV Pk Cal: 1.08 Peak PV Grad: 5.00 Updated in Other Vendor System with Status of Final Pipe Tafoya MD electronically signed on 04/11/2022 3:52:14 PM with status of Final
--- NOTE | 2022-04-10 07:19 | CA_ITS ---
Acquisition Time: 2022-04-10 08:39:24 Total Exercise Time: 00:10:31 Test Indications: HEART DISEASE Medications: SEE CHART Protocol: PHUONG Max HR: 144 BPM 92% of Pred: 155 BPM Max BP: 212/066 mmHG Max Work Load: 12.5 METS Exercise stress test with exercise 10 min 31 sec of Phuong protocol, achieving 92% MPHR, without anginal symptoms, without arrythmia, with hypertensvie response to exercie with max BP 212/66, without EKG changes meeting criteria for ischemia. In recovery he had isolated PVC and four ventricular cuplets. Nuclear images pending. Test review with Dr Tafoya Referred By: Rodrigo Will Overread By: ADELINA CALLOWAY
== END ==
LOC: HO.CARD 07:16
PROVIDERS: Visit Provider Internal Medicine
DX: I25.10 Atherosclerotic heart disease of native coronary artery without angina pectoris (principal)
CPT/HCPCS: 78452; 93017; 93306; A9500

== ENCOUNTER → 2022-04-15 14:29 | Outpatient (BNVA) | payer OTHER, SELFPAY | PROVIDERS: PCP Internal Medicine; Referring Provider Internal Medicine; Visit Provider Internal Medicine | DX: I25.10 Atherosclerotic heart disease of native coronary artery without angina pectoris (principal) ==

== ENCOUNTER 2022-05-24 11:41 | Outpatient (REF) | payer OTHER, SELFPAY ==
[2022-05-24 15:27] LABS: Campylobacter Not Detected (Not Detect.)
[2022-05-24 15:28] LABS: Adenovirus F 40/41 Not Detected (Not Detect.); Astrovirus Not Detected (Not Detect.); Cryptosporidium Not Detected (Not Detect.); Cyclospora cayetanensis Not Detected (Not Detect.); E. coli EAEC Not Detected (Not Detect.); E. coli EPEC Not Detected (Not Detect.); E. coli ETEC Not Detected (Not Detect.); E. coli STEC Not Detected (Not Detect.); Entamoeba histolytica Not Detected (Not Detect.); Giardia lamblia Not Detected (Not Detect.); Norovirus GI/GII Not Detected (Not Detect.); Plesiomonas shigelloides Not Detected (Not Detect.); Rotavirus A Not Detected (Not Detect.); Salmonella Not Detected (Not Detect.); Sapovirus Not Detected (Not Detect.); Shigella sp./EIEC Not Detected (Not Detect.); Vibrio Not Detected (Not Detect.); Vibrio Cholerae Not Detected (Not Detect.); Yersinia enterocolitica Not Detected (Not Detect.)
== END 2022-05-24 11:42 | disposition home or self-care (01) ==
LOC: HO.LNP 11:41
PROVIDERS: Visit Provider Internal Medicine
DX: B77.9 Ascariasis, unspecified (principal)
CPT/HCPCS: 87507

== ENCOUNTER 2022-06-04 08:02 | Outpatient (REF) | payer OTHER, SELFPAY ==
[2022-06-04 11:29] LABS: Appearance Urine CLEAR; Color Urine YELLOW; Glucose Urine UA NEG (NEG); Leukocyte Esterase Urine NEG (NEG); Nitrite Urine NEG (NEG); PH 5.5 (5.0-8.0); Specific Gravity - Urine >= 1.030 (1.005-1.025); Urine Blood NEG (NEG); Urine Ketones NEG (NEG); Urine Protein TRACE MG/DL (NEG-TRACE)
[2022-06-04 11:35] LABS: MANUAL DIFF FLAG NO
[2022-06-04 11:42] LABS: Basophils Absolute Auto 0.1 X10*3/uL (0.0-0.2); Basophils Percent Auto 1.2 % (0-2); Eosinophils Absolute Auto 0.2 X10*3/uL (0.0-0.4); Eosinophils Percent Auto 3.2 % (0-4); Hemoglobin 15.7 g/dl (14.0-18.0); Imm Gran Abs Auto 0.03 X10*3/uL (0.00-0.03); Imm Gran Pct Auto 0.5 % (0.0-0.4); Lymphocytes Absolute Auto 1.5 X10*3/uL (1.2-4.9); Lymphocytes Percent Auto 22.6 % (20-40); Mean Corpuscular HGB Conc 34.1 g/dl (31.0-36.0); Mean Corpuscular Hemoglobin 30.7 pg (27.0-33.0); Mean Platelet Volume 10.3 fL (9.4-12.4); Monocytes Absolute Auto 0.5 X10*3/uL (0.1-1.2); Monocytes Percent Auto 7.7 % (2-11); Neutrophils Absolute Auto 4.3 x10*3/uL (2.0-8.3); Neutrophils Percent Auto 64.8 % (45-73); Platelet Count 210 X10*3/uL (160-400); Red Blood Count 5.11 X10*6/uL (4.60-5.80); Red Cell Distribution Width 12.3 % (11.0-16.0); White Blood Count 6.6 X10*3/uL (4.8-10.8)
[2022-06-04 11:55] LABS: RBC Urine 0 /HPF (0); Sperm Urine NOTED; Squamous Epithelial Cell Urine 1+ /LPF; WBC Urine 0 /HPF (0-4)
[2022-06-04 12:07] LABS: Estimated Average Glucose 134 mg/dL; Hemoglobin A1c % 6.3 %
[2022-06-04 12:22] LABS: Alanine Aminotransferase 33 U/L (0-40); Albumin Level 4.4 g/dL (3.5-5.0); Alkaline Phosphatase 81 U/L (39-117); Anion Gap 12 (12-20); Aspartate Amino Transferase 31 U/L (5-37); Bilirubin Total 1.8 mg/dL (0.0-1.0); Blood Urea Nitrogen 20 mg/dL (9-16); Calcium 9.5 mg/dL (8.4-10.2); Carbon Dioxide 27 mmol/L (22-29); Chloride 105 mmol/L (96-108); Estimated Glomerular Filt Rate 56; Glucose Fasting 139 mg/dL (60-99); Potassium 5.5 mmol/L (3.3-5.1); Sodium 138 mmol/L (135-145); Total Protein 7.3 g/dL (6.5-8.0)
[2022-06-04 13:03] LABS: Creatinine Urine 163.87 mg/dL; Microalbum/Creatinine Ratio Ur 18.9 ug/mg cr
== END 2022-06-04 08:03 | disposition home or self-care (01) ==
LOC: HO.HMGCLDS 08:02
PROVIDERS: PCP Internal Medicine; Visit Provider Internal Medicine
DX: E11.9 Type 2 diabetes mellitus without complications (principal); I10 Essential (primary) hypertension
CPT/HCPCS: 36415; 80053; 81001; 82043; 83036; 85025

== ENCOUNTER 2022-06-12 06:57 | Outpatient (REF) | payer OTHER, SELFPAY ==
[2022-06-12 14:53] LABS: Adenovirus F 40/41 Not Detected (Not Detect.); Astrovirus Not Detected (Not Detect.); Campylobacter Not Detected (Not Detect.); Cryptosporidium Not Detected (Not Detect.); Cyclospora cayetanensis Not Detected (Not Detect.); E. coli EAEC Not Detected (Not Detect.); E. coli EPEC Not Detected (Not Detect.); E. coli ETEC Not Detected (Not Detect.); E. coli O157 Not Detected (Not Detect.); E. coli STEC Not Detected (Not Detect.); Entamoeba histolytica Not Detected (Not Detect.); Giardia lamblia Not Detected (Not Detect.); Norovirus GI/GII Not Detected (Not Detect.); Plesiomonas shigelloides Not Detected (Not Detect.); Rotavirus A Not Detected (Not Detect.); Salmonella Not Detected (Not Detect.); Sapovirus Not Detected (Not Detect.); Shigella sp./EIEC Not Detected (Not Detect.); Vibrio Not Detected (Not Detect.); Vibrio Cholerae Not Detected (Not Detect.); Yersinia enterocolitica Not Detected (Not Detect.)
== END 2022-06-12 06:58 | disposition home or self-care (01) ==
LOC: HO.HMGCLNP 06:57
PROVIDERS: Visit Provider Internal Medicine
DX: Z13.89 Encounter for screening for other disorder (principal)
CPT/HCPCS: 87177; 87209; 87507

== ENCOUNTER 2022-12-26 12:48 | Outpatient (REF) | payer OTHER, SELFPAY ==
--- NOTE | ~2022-12-26 | CT_ITS ---
EXAMINATION: CT CHEST SCREENING CLINICAL INFORMATION: Personal history of nicotine dependence. COMPARISON: None. TECHNIQUE: Multidetector volumetric CT imaging of the chest is performed without contrast using low dose technique. Additional 2D coronal and sagittal reformatted images and axial 3D maximum intensity projection (MIP) images are generated on the CT workstation. This CT examination was performed using dose optimization techniques as appropriate, variously including the following: *Automated exposure control *Adjustment of mA and/or kV according to patient size (this includes techniques or standardized protocols for targeted exams where dose is matched to indication/reason for exam; i.e. extremities or head) *Use of iterative reconstruction technique DLP: 59 mGy-cm FINDINGS: LUNGS: The lungs are well-expanded and clear of process. There are punctate 1-2 mm nodules left lower lobe adjacent to major fissure axial image 263/6 and 274/6. They are stable. No additional nodules seen. No acute consolidation, mass or groundglass density. MEDIASTINUM: The thyroid lobes are symmetric and normal. The central trachea and the bronchi are widely patent. Heart size and the great vessels are normal caliber. There are coronary artery calcifications and mitral valve calcification. No pericardial effusion seen. No abnormal size mediastinal or hilar lymph nodes. CORONARY ARTERY CALCIFICATION: [id number] coronary artery calcification seen. PLEURA: There is no pleural effusion. No pleural mass or thickening. AXILLA: No lymphadenopathy. UPPER ABDOMEN: Visualized liver, spleen, pancreas and bilateral adrenal glands are unremarkable. The gallbladder has been surgically removed. OSSEOUS STRUCTURES: No aggressive lytic or sclerotic process seen. CT/CT lung screening IMPRESSION: Stable small pulmonary nodules left lower lobe. No new nodules seen. Hypoinflated/emphysematous lungs. ASSESSMENT: Lung-RADS category 2: Benign. RECOMMENDATION: Low-dose annual CT chest.
== END 2022-12-26 12:49 | disposition home or self-care (01) ==
LOC: HO.CT 12:48
PROVIDERS: PCP Internal Medicine; Visit Provider Physician Assistant Medical
DX: Z12.2 Encounter for screening for malignant neoplasm of respiratory organs (principal); Z87.891 Personal history of nicotine dependence
CPT/HCPCS: 71271

== ENCOUNTER 2022-12-31 07:45 | Outpatient (REF) | payer OTHER, SELFPAY ==
[2022-12-31 07:58] LABS: MANUAL DIFF FLAG NO
[2022-12-31 08:36] LABS: Basophils Absolute Auto 0.1 X10*3/uL (0.0-0.2); Basophils Percent Auto 1.4 % (0-2); Eosinophils Absolute Auto 0.2 X10*3/uL (0.0-0.4); Eosinophils Percent Auto 2.5 % (0-4); Hematocrit 49.2 % (42.0-52.0); Hemoglobin 17.4 g/dl (14.0-18.0); Imm Gran Abs Auto 0.05 X10*3/uL (0.00-0.03); Imm Gran Pct Auto 0.6 % (0.0-0.4); Lymphocytes Absolute Auto 1.9 X10*3/uL (1.2-4.9); Lymphocytes Percent Auto 23.1 % (20-40); Mean Corpuscular HGB Conc 35.4 g/dl (31.0-36.0); Mean Corpuscular Hemoglobin 31.4 pg (27.0-33.0); Mean Corpuscular Volume 88.6 fL (80.0-98.0); Mean Platelet Volume 10.2 fL (9.4-12.4); Monocytes Absolute Auto 0.6 X10*3/uL (0.1-1.2); Monocytes Percent Auto 7.5 % (2-11); Neutrophils Absolute Auto 5.4 x10*3/uL (2.0-8.3); Neutrophils Percent Auto 64.9 % (45-73); Platelet Count 250 X10*3/uL (160-400); Red Blood Count 5.55 X10*6/uL (4.60-5.80); Red Cell Distribution Width 12.5 % (11.0-16.0); White Blood Count 8.4 X10*3/uL (4.8-10.8)
[2022-12-31 08:37] LABS: Estimated Average Glucose 137 mg/dL; Hemoglobin A1c % 6.4 %
[2022-12-31 09:05] LABS: Alanine Aminotransferase 31 U/L (0-40); Albumin Level 4.7 g/dL (3.5-5.0); Alkaline Phosphatase 100 U/L (39-117); Anion Gap 16 (12-20); Aspartate Amino Transferase 29 U/L (5-37); Bilirubin Total 2.5 mg/dL (0.0-1.0); Blood Urea Nitrogen 18 mg/dL (9-16); Calcium 10.3 mg/dL (8.4-10.2); Carbon Dioxide 27 mmol/L (22-29); Chloride 103 mmol/L (96-108); Cholesterol 134 mg/dL; Estimated Glomerular Filt Rate 57; Glucose Fasting 131 mg/dL (60-99); HDL Cholesterol 42 mg/dL; LDL Cholesterol Calculated 71 mg/dl; Potassium 5.9 mmol/L (3.3-5.1); Sodium 140 mmol/L (135-145); Total Protein 7.8 g/dL (6.5-8.0); Triglycerides 109 mg/dL
[2022-12-31 09:21] LABS: Prostate Specific Antigen 0.52 ng/mL (<0.05-4.0); Thyroid Stimulating Hormone 1.07 uIU/mL (0.32-4.0); Vitamin D 25-OH Total 37.3 ng/mL (>30)
[2022-12-31 09:37] LABS: Appearance Urine Clear; Color Urine Yellow; Glucose Urine UA Negative (Negative); Leukocyte Esterase Urine Trace (Negative); Nitrite Urine Negative (Negative); PH 5.5 (5.0-9.0); UMIC TRIGGER UA YES; Urine Blood Negative (Negative); Urine Ketones Negative (Negative); Urine Protein Trace mg/dL (Neg-Trace)
[2022-12-31 09:40] LABS: Bacteria Urine None Seen (None Seen); Hyaline Casts Urine 0-2 /LPF (0-2); RBC Urine 0-2 /HPF (0-2); Squamous Epithelial Cell Urine 0-2 /HPF (0-2); WBC Urine 0-5 /HPF (0-5)
[2022-12-31 09:50] LABS: Creatinine Urine 129.45 mg/dL
== END 2022-12-31 07:46 | disposition home or self-care (01) ==
LOC: HO.LAB 07:45
PROVIDERS: PCP Internal Medicine; Visit Provider Internal Medicine
DX: Z00.00 Encounter for general adult medical examination without abnormal findings (principal); Z12.5 Encounter for screening for malignant neoplasm of prostate; I10 Essential (primary) hypertension; E11.9 Type 2 diabetes mellitus without complications
CPT/HCPCS: 36415; 80053; 80061; 81001; 82043; 82306; 83036; 84153; 84443; 85025

== ENCOUNTER 2023-02-01 12:00 | Emergency (ER) | payer OTHER, SELFPAY ==
[2023-02-01 12:03] VITALS: BP 211/97; PULSE 98; RESP 18; TEMP 36.1; O2SAT 97; BMI 26.6
--- NOTE | 2023-02-01 12:04 | ED_ITS ---
HPI - General Adult General Chief complaint: General Medical Stated complaint: sent from urgent care, High Blood Pressure Time Seen by Provider: 02/01/23 12:45 Source: patient Mode of arrival: ambulatory Limitations: no limitations History of Present Illness HPI narrative: 67 yo male with history of HTN, HLD here from urgent care with complaints of high blood pressure. Patient seen at urgent care for strep pharyngitis and provided with rx for antibiotic. Noted to have high blood pressure and sent in to the ER for further evaluation. Patient asymptomatic. Patient discontinued from his lisinopril 5 weeks ago by PCP d/t hyperK. NOt taking anything for HTN. Has f/u with PCP this week. patient with no sx other then sore throat Related Data Home Medications Medication Instructions Recorded Confirmed cholecalciferol (vitamin D3) 50 50 mcg PO DAILY 11/08/21 10/15/22 mcg (2,000 unit) capsule (Vitamin D3) lisinopril 10 mg tablet 10 mg PO DAILY 02/25/22 10/15/22 atorvastatin 40 mg tablet 20 mg PO QPM 10/15/22 Previous Rx's Medication Instructions Recorded amlodipine 5 mg tablet (Norvasc) 5 mg PO DAILY #10 tabs 02/01/23 Allergies Allergy/AdvReac Type Severity Reaction Status Date / Time No Known Allergies Allergy Verified 10/15/22 14:29 [No Known Allergies*] Review of Systems Review of Systems: Yes all other systems are reviewed and are negative Constitutional: Constitutional: Reports no additional constitutional c omplaints, Denies body ache(s), Denies chills, Denies fever(s), Denies headache(s) and Denies weakness Eyes: Eyes: Reports no additional eye complaints and Denies change in vision ENT: Reports system reviewed and no additional complaints, except as documented, Denies dizziness, Denies headache(s), Denies nasal congestion, Denies nasal discharge, Denies neck pain and Reports sore throat Cardiovascular: Cardiovascular: Reports no additional cardiovascular comp laints, Denies chest pain, Denies leg edema and Denies dyspnea Respiratory: Respiratory: Reports no additional respiratory complaints, Denies cough and Denies dyspnea Gastrointestinal: Gastrointestinal: Reports no additional gastrointestinal complaints, Denies abdominal pain, Denies diarrhea, Denies nausea and Denies vomiting Genitourinary: Genitourinary: Denies urinary incontinence Musculoskeletal: Musculoskeletal: Reports no additional musculoskeletal complaints, Denies back pain, Denies arthralgias, Denies joint swelling, Denies neck pain, Denies numbness and Denies tingling Integumentary/Breasts: Skin/Breast: Reports system reviewed and no additional complaints, except as docu and Denies rash Neurologic: Reports system reviewed and no additional complaints, except as documented, Denies dizziness, Denies headache(s), Denies numbness, Denies tingling and Denies weakness PMF Past Medical History Attestation statement: The following information was validated with the patient. Source: old records reviewed and nursing notes reviewed Medical History Diabetes mellitus type 2, diet-controlled (~2014) Emphysema lung High cholesterol Hypertension Personal history of nicotine dependence PONV (postoperative nausea and vomiting) Tubular adenoma of colon (~2017) Surgical History History of cataract surgery History of cholecystectomy History of colonoscopy History of nasal septoplasty Hx of bilateral cataract extraction S/P tendon repair Family History Family History Father Hypertension DM2 (diabetes mellitus, type 2) Mother DM2 (diabetes mellitus, type 2) Hypertension Hemochromatosis Brother DM2 (diabetes mellitus, type 2) Sister DM2 (diabetes mellitus, type 2) Social History Social History Alcohol intake: never Patient Tobacco Use Status: Former Tobacco user Quit Date: 2009 Tobacco use type: Cigarette Years Smoked: 25pyh, onset 25yo, 3/4-1ppd x 30yrs, quit 2009 Smoked in Last 30 Days: No Use of substances other than those prescribed or required for medical reasons: No Advance Directives: No Advance Directives Information Provided: Yes Physical Exam ED Vital Signs: Vital Signs - 24 hr 02/01/23 12:03 02/01/23 13:20 Temperature 97 F Pulse Rate 98 Respiratory Rate 18 Blood Pressure 211/97 H 215/95 H Pulse Oximetry 97 Oxygen Delivery Method Room Air BMI result Body Mass Index 26.6 Const General: cooperative, healthy appearing, comfortable and no acute distress Orientation/consciousness: patient oriented x3 Limitations: no limitations [facility] Head: Yes normal to inspection Ears: hearing grossly normal bilaterally Throat: Yes abnormal tonsil (B/l tonsillar erythema and exudate ) and No jamie tonsillar mass Eyes General: appearance normal, both eyes and all related structures Pupils: Equal, round and reactive pupils present Neck Neck: Yes normal visual inspection, Yes full ROM and Yes no lymphadenopathy Chest Chest palpation & inspection: normal inspection of the chest Resp Effort & Inspection: normal respiratory effort Auscultation: clear to auscultation bilaterally Cardio Rate: regular rate Rhythm: regular rhythm Peripheral pulses: Peripheral pulses 2+ throughout GI Inspection: Yes normal to inspection Palpation (GI): Soft to palpation and nontender General: Yes no CVA tenderness Back/Spine/Pelvis Back: no CVA tenderness Thoracic/Lumbar Spine: thoracic and lumbar spine normal to inspection Skin General skin exam: no rashes or lesions noted Neuro General: patient oriented x3 and moves all extremities Cranial nerves: Yes Equal, round and reactive pupils present Cognition (Neuro): normal cognition Gait exam (Neuro): Normal gait present Motor exam (neuro): 5/5 motor strength present throughout Extrem General: Yes normal to inspection, Yes no pedal edema and Yes no calf tenderness Course Course Course Narrative: This is a rapid medical exam. Deferred additional HPI, ROS, PE to primary provider. 67 yo male with history of HTN, HLD here from urgent care with complaints of high blood pressure. Patient seen at urgent care for strep pharyngitis and provided with rx for antibiotic. Noted to have high blood pressure and sent in to the ER for further evaluation. Patient asymptomatic. Patient discontinued from his lisinopril 5 weeks ago by PCP d/t hyperK. NOt taking anything for HTN. Has f/u with PCP this week. Will obtain labs, give antihypertensive. 211/98 in triage. Reevaluation(s) Reevaluation #1: 1303-labs were unremarkable with the exception potassium 5.2. This is a patient with asymptomatic hypertension who was recently discontinued from his lisinopril. His blood pressure is quite elevated here but he is having no symptoms. I did discuss his case with my attending physician Dr. Weiss. We will start him on low-dose amlodipine and have him follow-up with his scheduled primary care appointment this Thursday. Patient should return for any worsening signs or symptoms were discussed with him. Comfortable plan for discharge home. Medications Administered Discontinued Medications Generic Name Dose Route Start Last Admin Trade Name Forest PRN Reason Stop Dose Admin Amlodipine Besylate 5 mg 02/01/23 12:08 02/01/23 12:15 Amlodipine Besylate 5 Mg Tablet PO 02/01/23 12:09 5 mg ONCE ONE Administration Protocol Medical Decision Making Medical Decision Making MDM Narrative: 67 yo male with history of HTN/HLD here with asymptomatic HTN from where he was being seen for strep pharyngitis. Of note, patient antihypertensives were discontinued 5 weeks ago due to hyperkalemia. Patient has plans for follow-up this Thursday with his primary care. Triage blood pressure 211/98. Patient asymptomatic. Will obtain labs, give norvasc dose and re-assess. Differential Diagnosis Differential Diagnoses: The differential diagnosis associated with the presentation includes Asymptomatic hypertension Less likely hypertensive crisis or urgency, press syndrome, acs Lab Data [facility] Lab Attestation statement: I reviewed the patient's lab results. 02/01/23 12:19 02/01/23 12:19 Labs: Lab Results 02/01/23 02/01/23 Range/Units 12:19 12:19 WBC 10.1 (4.8-10.8) X10*3/uL RBC 5.34 (4.60-5.80) X10*6/uL Hgb 16.2 (14.0-18.0) g/dl Hct 45.9 (42.0-52.0) % MCV 86.0 (80.0-98.0) fL MCH 30.3 (27.0-33.0) pg MCHC 35.3 (31.0-36.0) g/dl RDW 12.1 (11.0-16.0) % Plt Count 220 (160-400) X10*3/uL MPV 9.4 (9.4-12.4) fL Immature Gran % (Auto) 0.8 H (0.0-0.4) % Neut % (Auto) 70.9 (45-73) % Lymph % (Auto) 15.7 L (20-40) % Pope % (Auto) 8.2 (2-11) % Eos % (Auto) 3.5 (0-4) % Baso % (Auto) 0.9 (0-2) % Lymph # (Auto) 1.6 (1.2-4.9) X10*3/uL Pope # (Auto) 0.8 (0.1-1.2) X10*3/uL Eos # (Auto) 0.4 (0.0-0.4) X10*3/uL Baso # (Auto) 0.1 (0.0-0.2) X10*3/uL Abs Immat Gran (auto) 0.08 H (0.00-0.03) X10*3/uL Absolute Neuts (auto) 7.2 (2.0-8.3) x10*3/uL Absolute Nucleated RBC 0.000 (0.0-0.012) X10*3/uL Nucleated RBC % (auto) 0.0 (0.0-0.2) /100WBC Sodium 141 (135-145) mmol/L Potassium 5.2 H (3.3-5.1) mmol/L Chloride 102 (96-108) mmol/L Carbon Dioxide 26 (22-29) mmol/L Anion Gap 18 (12-20) BUN 17 H (9-16) mg/dL Creatinine 1.16 (0.5-1.4) mg/dL Estim Creat Clear Calc 58.5 Estimated GFR > 60 Random Glucose 104 (60-115) mg/dL Calcium 9.4 D (8.4-10.2) mg/dL Discharge Plan Discharge Clinical Impression: Asymptomatic hypertension Patient Disposition: Home, Self-Care Instructions: Hypertension (ED) Additional Instructions: Your potassium is 5.2 today Keep appt with your PCP thursday as scheduled next dose of blood pressure medication tomorrow take your antibiotic as prescribed from the urgent care Prescriptions: New amlodipine [Norvasc] 5 mg tablet 5 mg PO DAILY Qty: 10 0RF No Action cholecalciferol (vitamin D3) [Vitamin D3] 50 mcg (2,000 unit) Capsule 50 mcg PO DAILY lisinopril 10 mg tablet 10 mg PO DAILY atorvastatin 40 mg tablet 20 mg PO QPM Referrals: Robbie Bruner DO [Primary Care Provider] - 5 days (as scheduled ) Interventions: ED Discharge Assessment Last Done: 02/01/23 13:34 Discharge Date/Time: 02/01/23 13:35
[2023-02-01] MEDS: amLODIPine Besylate 5 MG TABLET PO (12:15)
[2023-02-01 12:23] LABS: MANUAL DIFF FLAG NO
[2023-02-01 12:24] LABS: Basophils Absolute Auto 0.1 X10*3/uL (0.0-0.2); Basophils Percent Auto 0.9 % (0-2); Eosinophils Absolute Auto 0.4 X10*3/uL (0.0-0.4); Eosinophils Percent Auto 3.5 % (0-4); Hematocrit 45.9 % (42.0-52.0); Hemoglobin 16.2 g/dl (14.0-18.0); Imm Gran Abs Auto 0.08 X10*3/uL (0.00-0.03); Imm Gran Pct Auto 0.8 % (0.0-0.4); Lymphocytes Absolute Auto 1.6 X10*3/uL (1.2-4.9); Lymphocytes Percent Auto 15.7 % (20-40); Mean Corpuscular HGB Conc 35.3 g/dl (31.0-36.0); Mean Corpuscular Hemoglobin 30.3 pg (27.0-33.0); Mean Platelet Volume 9.4 fL (9.4-12.4); Monocytes Absolute Auto 0.8 X10*3/uL (0.1-1.2); Monocytes Percent Auto 8.2 % (2-11); Neutrophils Absolute Auto 7.2 x10*3/uL (2.0-8.3); Neutrophils Percent Auto 70.9 % (45-73); Platelet Count 220 X10*3/uL (160-400); Red Blood Count 5.34 X10*6/uL (4.60-5.80); Red Cell Distribution Width 12.1 % (11.0-16.0); White Blood Count 10.1 X10*3/uL (4.8-10.8)
[2023-02-01 12:42] LABS: Anion Gap 18 (12-20); Blood Urea Nitrogen 17 mg/dL (9-16); Calcium 9.4 mg/dL (8.4-10.2); Carbon Dioxide 26 mmol/L (22-29); Chloride 102 mmol/L (96-108); Creatinine Clr Calc Pharmacy 58.5; Estimated Glomerular Filt Rate > 60; Glucose Random 104 mg/dL (60-115); Potassium 5.2 mmol/L (3.3-5.1); Sodium 141 mmol/L (135-145)
[2023-02-01 13:20] VITALS: BP 215/95
== END 2023-02-01 13:35 | disposition home or self-care (01) ==
PROVIDERS: Nurse Practitioner Family; Emergency Provider Emergency Medicine; PCP Internal Medicine
DX: I10 Essential (primary) hypertension (principal); Z79.899 Other long term (current) drug therapy
CPT/HCPCS: 36415; 80048; 85025; 99283

== ENCOUNTER 2023-02-02 08:02 | Inpatient (IN) | payer OTHER, SELFPAY ==
--- NOTE | ~2023-02-02 | XR_ITS ---
EXAMINATION: XR HAND, RIGHT CLINICAL INFORMATION: Swelling. Concern for osteomyelitis. COMPARISON: Right hand and index finger 05/06/2017, 01/01/2017. Prior history of Mallet right index finger. TECHNIQUE: PA, lateral, and oblique views of the right hand. FINDINGS: No focal bone lesion or abnormal periosteal reaction. No focal osteopenia. No radiographic evidence for osteomyelitis. No soft tissue abnormality. Degenerative joint narrowing marginal bone spurs of the distal interphalangeal joint of the index finger. XR/XR hand RT min 3V IMPRESSION: No acute abnormality. No radiographic evidence for osteomyelitis.
[2023-02-02 08:05] VITALS: BP 158/85; PULSE 109; RESP 20; TEMP 36.9; O2SAT 96; BMI 25.2
[2023-02-02 08:30] LABS: Hematocrit 48.4 % (42.0-52.0); Hemoglobin 17.3 g/dl (14.0-18.0); Mean Corpuscular HGB Conc 35.7 g/dl (31.0-36.0); Mean Corpuscular Volume 86.7 fL (80.0-98.0); Mean Platelet Volume 9.8 fL (9.4-12.4); Platelet Count 223 X10*3/uL (160-400); Red Blood Count 5.58 X10*6/uL (4.60-5.80); Red Cell Distribution Width 12.5 % (11.0-16.0); White Blood Count 24.6 X10*3/uL (4.8-10.8)
[2023-02-02 08:48] LABS: Anion Gap 20 (12-20); Blood Urea Nitrogen 30 mg/dL (9-16); Calcium 9.5 mg/dL (8.4-10.2); Carbon Dioxide 26 mmol/L (22-29); Chloride 97 mmol/L (96-108); Creatinine Clr Calc Pharmacy 38.2; Estimated Glomerular Filt Rate 37; Glucose Random 214 mg/dL (60-115); Potassium 4.7 mmol/L (3.3-5.1); Sodium 138 mmol/L (135-145)
[2023-02-02 08:59] LABS: Band Neutrophils Percent 9 % (3-5); Basophils Abs Manual 0.2 X10*3/uL (0.0-0.2); Basophils Percent Manual 1 % (0-2); Lymphocytes Absolute Manual 0.5 X10*3/uL (1.2-4.9); Lymphocytes Percent Manual 2 % (20-40); Monocytes Absolute Manual 1.2 X10*3/uL (0.1-1.2); Monocytes Percent Manual 5 % (2-11); Neutrophils Absolute Manual 22.6 X10*3/uL (2.0-8.3); Neutrophils Percent Manual 83 % (45-73)
[2023-02-02 09:00] LABS: RBC Morphology NORMAL; Toxic Vacuolation PRESENT
[2023-02-02 09:01] LABS: Platelet Estimate NORMAL (NORMAL); Platelet Morphology Comment NORMAL
[2023-02-02 15:10] VITALS: BP 173/84; PULSE 105; RESP 18; TEMP 37.3; O2SAT 98
--- NOTE | 2023-02-02 15:16 | PC.NURSE ---
pt AOx3. Pt presents with what looks to be a blister and swelling on his right thumb. He reports thinking he has a splinter in that area. Reports mild itching but no pain. BP elevated, Temp 99.5 Orally. VS otherwise stable
--- NOTE | 2023-02-02 15:59 | ED_ITS ---
HPI - Skin/Abscess/Foreign Bdy General Chief complaint: Skin/Abscess/Foreign Body Stated complaint: Infected finger Time Seen by Provider: 02/02/23 15:26 Source: patient Mode of arrival: ambulatory Limitations: no limitations History of Present Illness HPI narrative: This is a 67-year-old male with a history of hypertension who presents to the emergency room with complaints of right hand swelling, redness, pain noticed last evening with a temperature of 100 degrees F home. Of note, patient was seen at urgent care yesterday and diagnosed with strep pharyngitis and started on amoxicillin. He was noted to have asymptomatic hypertension in urgent care was referred into the ER for evaluation yesterday. This was thought to be secondary to his lisinopril being discontinued 5 weeks ago by his primary care doctor. He was not started on any other antihypertensives and had a follow-up appointment with his primary this week. Yesterday he was started on amlodipine 5 mg and discharged home. Patient reports approximately a week ago he was working with wood and felt a splinter go into the right hand. He thought that he removed the whole splinter. Last evening he started to notice increasing pain and swelling and redness of the right hand. Patient is right-hand dominant. Patient denies any weakness, numbness, tingling of the extremity. Related Data Home Medications Medication Instructions Recorded Confirmed atorvastatin 40 mg tablet 20 mg PO BEDTIME 10/15/22 02/02/23 cholecalciferol (vitamin D3) 50 50 mcg PO DAILY 02/02/23 02/02/23 mcg (2,000 unit) tablet Previous Rx's Medication Instructions Recorded amlodipine 5 mg tablet (Norvasc) 5 mg PO DAILY #10 tabs 02/01/23 Allergies Allergy/AdvReac Type Severity Reaction Status Date / Time No Known Allergies Allergy Verified 10/15/22 14:29 [No Known Allergies*] Review of Systems Review of Systems: Yes all other systems are reviewed and are negative Constitutional: Constitutional: Reports no additional constitutional complaints, Denies body ache(s), Denies chills, Reports fever(s), Denies headache(s) and Denies weakness Eyes: Eyes: Reports no additional eye complaints and Denies change in vision ENT: Reports system reviewed and no additional complaints, except as documented, Denies dizziness, Denies headache(s), Denies nasal congestion, Denies nasal discharge and Denies neck pain Cardiovascular: Cardiovascular: Reports no additional cardiovascular complaints, Denies chest pain, Denies leg edema and Denies dyspnea Respiratory: Respiratory: Reports no additional respiratory complaints, Denies cough and Denies dyspnea Gastrointestinal: Gastrointestinal: Reports no additional gastrointestinal complaints, Denies abdominal pain, Denies diarrhea, Denies nausea and Denies vomiting Genitourinary: Genitourinary: Denies urinary incontinence Musculoskeletal: Musculoskeletal: Reports no additional musculoskeletal complaints, Denies back pain, Denies arthralgias, Denies joint swelling, Denies neck pain, Denies numbness and Denies tingling Integumentary/Breasts: Skin/Breast: Reports system reviewed and no additional complaints, except as docu, Reports swelling, Reports erythema and Denies rash Neurologic: Reports system reviewed and no additional complaints, except as documented, Denies Abnormal speech present, Denies dizziness, Denies headache(s), Denies numbness, Denies tingling and Denies weakness PMFSH Past Medical History Attestation statement: The following information was validated with the patient. Source: old records reviewed and nursing notes reviewed Medical History Diabetes mellitus type 2, diet-controlled (~2014) Emphysema lung High cholesterol Hypertension Personal history of nicotine dependence PONV (postoperative nausea and vomiting) Tubular adenoma of colon (~2017) Surgical History History of cataract surgery History of cholecystectomy History of colonoscopy History of nasal septoplasty Hx of bilateral cataract extraction S/P tendon repair Family History Family History Father Hypertension DM2 (diabetes mellitus, type 2) Mother DM2 (diabetes mellitus, type 2) Hypertension Hemochromatosis Brother DM2 (diabetes mellitus, type 2) Sister DM2 (diabetes mellitus, type 2) Social History Social History Alcohol intake: never Patient Tobacco Use Status: Former Tobacco user Quit Date: 2009 Tobacco use type: Cigarette Years Smoked: 25pyh, onset 25yo, 3/4-1ppd x 30yrs, quit 2009 Smoked in Last 30 Days: No Advance Directives: No Advance Directives Information Provided: No Physical Exam Vital Signs: Vital Signs: Last Vital Signs Temp 98.4 F 02/02/23 17:38 Pulse 103 H 02/02/23 17:38 Resp 20 02/02/23 17:38 BP 151/77 H 02/02/23 17:38 Pulse Ox 95 02/02/23 17:38 O2 Del Method 02/02/23 17:38 BMI result Body Mass Index 25.2 Const: General: cooperative, healthy appearing, comfortable and no acute distress Orientation/consciousness: patient oriented x3 Limitations: no limitations HEENT: Head: Yes normal to inspection Ears: hearing grossly normal bilaterally General nose exam: Normal external nose present Face and sinus: Yes normal facial exam Mouth: Normal oral and palatal mucosa present Throat: Yes posterior oropharynx normal Eyes: General: appearance normal, both eyes and all related structures Pupils: Equal, round and reactive pupils present Neck: Neck: Yes normal visual inspection Chest: Chest palpation & inspection: normal inspection of the chest Resp: Effort & Inspection: normal respiratory effort Auscultation: clear to auscultation bilaterally Cardio: Rate: regular rate Rhythm: regular rhythm Peripheral pulses: Peripheral pulses 2+ throughout GI: Inspection: Yes normal to inspection Palpation (GI): Soft to palpation and nontender Auscultation: normal bowel sounds Back/Spine/Pelvis: Thoracic/Lumbar Spine: thoracic and lumbar spine normal to inspection Skin: General skin exam: no rashes or lesions noted Neuro: General: patient oriented x3, no focal motor deficits and normal sensation to monofilament Cranial nerves: Yes Equal, round and reactive pupils present Cognition (Neuro): normal cognition Speech: No Abnormal speech present Gait exam (Neuro): Normal gait present Motor exam (neuro): 5/5 motor strength present throughout Extrem: Other: FROM of the right hand and wrist, Sensation normal. 2+ radial/ulnar pulses Course Course Course Narrative: 1800-reviewed labs which showed leukocytosis, CHEKO. Patient receiving IV antibiotics, IV fluid Medications Administered Discontinued Medications Generic Name Dose Route Start Last Admin Trade Name Freq PRN Reason Stop Dose Admin Acetaminophen 975 mg 02/02/23 17:43 02/02/23 17:51 Acetaminophen 325 Mg Tablet PO 02/02/23 17:44 975 mg ONCE ONE Administration Piperacillin Sod/Tazobactam 50 mls @ 100 mls/hr 02/02/23 15:52 02/02/23 17:35 Sod 3.375 gm/ Sodium Chloride IV 02/02/23 16:21 100 mls/hr ONCE ONE Administration Sodium Chloride 1,000 mls @ 999 mls/hr 02/02/23 15:58 02/02/23 16:22 Ns IV 02/02/23 16:58 999 mls/hr .Q1H1M STA Administration Medical Decision Making Medical Decision Making [facility] Narrative: 1550-This is a 67-year-old male with history of hypertension who is right-hand dominant who presents with swelling and redness as well as pain to the right upper extremity since last evening with low-grade fever at home. Patient felt that he may have had a splinter in the hand 1 week ago that he thought he was able to fully removed. On exam patient with significant swelling, redness, warmth to the right upper extremity with streaking up the arm. Will need labs including blood cultures, lactic acid, COVID screen, x-ray right hand. At this time infection is suspected. Antibiotics ordered Differential Diagnosis Differential Diagnoses: The differential diagnosis associated with the presentation includes Cellulitis Low concern for nec fasc, DVT, tenosynovitis Admission/Observation Consideration of admission/observation: Escalation of care including admission/observation considered Patient with cellulitis of the right upper extremity, patient [id number], patient with leukocytosis, fever. Patient will need admission for IV antibiotics Consult Healthcare Provider Management of the patient was discussed with: Hospitalist and Restoration Technician Spoke to Dr. Garcia who accepted admission Lab Data [facility] Lab Attestation statement: I reviewed the patient's lab results. 02/02/23 08:23 02/02/23 08:23 Labs: Lab Results 02/02/23 02/02/23 02/02/23 Range/Units 08:23 08:23 16:15 WBC 24.6 H (4.8-10.8) X10*3/uL RBC 5.58 (4.60-5.80) X10*6/uL Hgb 17.3 (14.0-18.0) g/dl Hct 48.4 (42.0-52.0) % MCV 86.7 (80.0-98.0) fL MCH 31.0 (27.0-33.0) pg MCHC 35.7 (31.0-36.0) g/dl RDW 12.5 (11.0-16.0) % Plt Count 223 (160-400) X10*3/uL MPV 9.8 (9.4-12.4) fL Immature Gran % (Auto) Cancelled Neut % (Auto) Cancelled Lymph % (Auto) Cancelled [place] % (Auto) Cancelled Eos % (Auto) Cancelled Baso % (Auto) Cancelled Lymph # (Auto) Cancelled [place] # (Auto) Cancelled Eos # (Auto) Cancelled Baso # (Auto) Cancelled Abs Immat Gran (auto) Cancelled Absolute Neuts (auto) Cancelled Absolute Nucleated RBC 0.000 (0.0-0.012) X10*3/uL Nucleated RBC % (auto) 0.0 (0.0-0.2) /100WBC Neutrophils % (Manual) 83 H (45-73) % Band Neutrophils % 9 H (3-5) % Lymphocytes % (Manual) 2 L (20-40) % Monocytes % (Manual) 5 (2-11) % Basophils % (Manual) 1 (0-2) % Abs Neuts (Manual) 22.6 H (2.0-8.3) X10*3/uL Lymphocytes # (Manual) 0.5 L (1.2-4.9) X10*3/uL Monocytes # (Manual) 1.2 (0.1-1.2) X10*3/uL Basophils # (Manual) 0.2 (0.0-0.2) X10*3/uL Toxic Vacuolation PRESENT Platelet Estimate NORMAL (NORMAL) Plt Morphology Comment NORMAL RBC Morphology NORMAL ESR 42 H (0-15) MM/HR Sodium 138 (135-145) mmol/L Potassium 4.7 (3.3-5.1) mmol/L Chloride 97 (96-108) mmol/L Carbon Dioxide 26 (22-29) mmol/L Anion Gap 20 (12-20) BUN 30 H (9-16) mg/dL Creatinine 1.84 H (0.5-1.4) mg/dL Estim Creat Clear Calc 38.2 Estimated GFR 37 Random Glucose 214 H (60-115) mg/dL Lactic Acid (0.5-2.0) mmol/L Calcium 9.5 (8.4-10.2) mg/dL Total Bilirubin (0.0-1.0) mg/dL Direct Bilirubin (0.0-0.5) mg/dL AST (5-37) U/L ALT (0-40) U/L Alkaline Phosphatase (39-117) U/L C-Reactive Protein (< or = 0.50) mg/dL Total Protein (6.5-8.0) g/dL Albumin (3.5-5.0) g/dL COVID-19 (SARAH) (Negative) COVID-19 Clin Com 02/02/23 02/02/23 02/02/23 Range/Units 16:15 16:16 16:53 WBC (4.8-10.8) X10*3/uL RBC (4.60-5.80) X10*6/uL Hgb (14.0-18.0) g/dl Hct (42.0-52.0) % MCV (80.0-98.0) fL MCH (27.0-33.0) pg MCHC (31.0-36.0) g/dl RDW (11.0-16.0) % Plt Count (160-400) X10*3/uL MPV (9.4-12.4) fL Immature Gran % (Auto) Neut % (Auto) Lymph % (Auto) [place] % (Auto) Eos % (Auto) Baso % (Auto) Lymph # (Auto) [place] # (Auto) Eos # (Auto) Baso # (Auto) Abs Immat Gran (auto) Absolute Neuts (auto) Absolute Nucleated RBC (0.0-0.012) X10*3/uL Nucleated RBC % (auto) (0.0-0.2) /100WBC Neutrophils % (Manual) (45-73) % Band Neutrophils % (3-5) % Lymphocytes % (Manual) (20-40) % Monocytes % (Manual) (2-11) % Basophils % (Manual) (0-2) % Abs Neuts (Manual) (2.0-8.3) X10*3/uL Lymphocytes # (Manual) (1.2-4.9) X10*3/uL Monocytes # (Manual) (0.1-1.2) X10*3/uL Basophils # (Manual) (0.0-0.2) X10*3/uL Toxic Vacuolation Platelet Estimate (NORMAL) Plt Morphology Comment RBC Morphology ESR (0-15) MM/HR Sodium (135-145) mmol/L Potassium (3.3-5.1) mmol/L Chloride (96-108) mmol/L Carbon Dioxide (22-29) mmol/L Anion Gap (12-20) BUN (9-16) mg/dL Creatinine (0.5-1.4) mg/dL Estim Creat Clear Calc Estimated GFR Random Glucose (60-115) mg/dL Lactic Acid 1.8 (0.5-2.0) mmol/L Calcium (8.4-10.2) mg/dL Total Bilirubin 2.8 H (0.0-1.0) mg/dL Direct Bilirubin 0.8 H (0.0-0.5) mg/dL AST 22 (5-37) U/L ALT 27 (0-40) U/L Alkaline Phosphatase 114 (39-117) U/L C-Reactive Protein 28.38 H (< or = 0.50) mg/dL Total Protein 7.7 (6.5-8.0) g/dL Albumin 4.4 (3.5-5.0) g/dL COVID-19 (SARAH) Negative (Negative) COVID-19 Clin Com See Note Independent Interpretation I performed an independent interpretation of an: Plain X-Ray Interpretation: I independently reviewed the x-ray and agree with radiologist report Radiology Impression Discussion of test interpretation with radiology: I have reviewed the radiologist's reading. Radiologist Impression: COMPARISON: Right hand and index finger 05/06/2017, 01/01/2017. Prior history of Mallet right index finger.? TECHNIQUE: PA, lateral, and oblique views of the right hand. FINDINGS: No focal bone lesion or abnormal periosteal reaction. No focal osteopenia. No radiographic evidence for osteomyelitis. No soft tissue abnormality. Degenerative joint narrowing marginal bone spurs of the distal interphalangeal joint of the index finger. XR/XR hand RT min 3V IMPRESSION: No acute abnormality. No radiographic evidence for osteomyelitis. ? Discharge Plan Discharge Clinical Impression: Cellulitis, Leukocytosis, CHEKO (acute kidney injury) Patient Disposition: Admitted As Inpatient Prescriptions: No Action amlodipine [Norvasc] 5 mg tablet 5 mg PO DAILY Qty: 10 0RF cholecalciferol (vitamin D3) 50 mcg (2,000 unit) Tablet 50 mcg PO DAILY atorvastatin 40 mg tablet 20 mg PO BEDTIME
[2023-02-02 16:19] VITALS: BP 145/70; PULSE 88; RESP 18; TEMP 36.9; O2SAT 95
[2023-02-02] MEDS: 0.9 % Sodium Chloride 1,000 ML 999 ML IV (16:22)
[2023-02-02 16:37] LABS: Lactic Acid 1.8 mmol/L (0.5-2.0)
[2023-02-02 16:39] LABS: C Reactive Protein 28.38 mg/dL (< or = 0.50)
[2023-02-02 16:59] LABS: Erythrocyte Sedimentation Rate 42 MM/HR (0-15)
--- NOTE | 2023-02-02 17:00 | PHA.MEDREC ---
Pharmacy Consult ? Medication Reconciliation Pharmacy has completed the medication reconciliation. PT STOPPED LISINOPRIL 10 MG YESTERDAY AND STARTED AMLODIPINE 5 MG
[2023-02-02 17:13] LABS: COVID-19 Test Negative (Negative); IDNOW Serial# BCCEAD1C
--- NOTE | 2023-02-02 17:13 | PC.NURSE ---
pt is a difficult stick and only has availability of 1 arm, pt has had multiple people attempt to obtain second blood culture, another tech is attempting second blood culture, if unable to obtain we will contact phlebotomy to obtain.
--- NOTE | 2023-02-02 17:30 | P.HPHOSP_ITS ---
History of Present Illness Date of Service: 02/02/23 Chief Complaint: Right thumb pain and swelling, CHEKO 67 year old male with diabetes and other chronic medical issues as listed below who presents with pain, swelling and blisters in thr right thumb. He think he may have injured himself with splinter last week and has had no problem with the hand, in fact, he was seen in the ED yesterday with uncontrolled blood and had no issues with the hand. His started noticing the redness, swelling and pain last in the right thumb and has since spread to the arm. See picture below. He has no fever or chills. Xray no osteo or foreing body. WBC is 24, tachy, normal lactic a, ESR 42 and CRP 28 Review of Systems Review of Systems: Gen: no fever Resp: no sob, no cough CV: no chest, no NICOLE, no leg edema GI: No n/v, no abd pain Neuro: No confusion MSK: pain inthe right hand Yes all other systems are reviewed and are negative [facility] Medical History Diabetes mellitus type 2, diet-controlled (~2014) Emphysema lung High cholesterol Hypertension Personal history of nicotine dependence PONV (postoperative nausea and vomiting) Tubular adenoma of colon (~2017) Family History Father Hypertension DM2 (diabetes mellitus, type 2) Mother DM2 (diabetes mellitus, type 2) Hypertension Hemochromatosis Brother DM2 (diabetes mellitus, type 2) Sister DM2 (diabetes mellitus, type 2) Surgical History History of cataract surgery History of cholecystectomy History of colonoscopy History of nasal septoplasty Hx of bilateral cataract extraction S/P tendon repair Social History Alcohol intake: never Patient Tobacco Use Status: Former Tobacco user Quit Date: 2009 Tobacco use type: Cigarette Years Smoked: 25pyh, onset 25yo, 3/4-1ppd x 30yrs, quit 2009 Smoked in Last 30 Days: No Advance Directives: No Advance Directives Information Provided: No Meds Allergies Allergy/AdvReac Type Severity Reaction Status Date / Time No Known Allergies Allergy Verified 10/15/22 14:29 [No Known Allergies*] Active Medications: Current Medications Vancomycin HCl (Vancomycin/Ns) 2,000 mg in 520 mls @ 260 mls/hr IV ONCE ONE Stop: 02/02/23 17:59 Pharmacy Consult (Consult Rx Perform Med Rec) 1 each MISCELLANE ONCE PRN PRN Reason: Consult order Home Medications Medication Instructions Recorded Confirmed Last Taken Type atorvastatin 40 mg tablet 20 mg PO BEDTIME 10/15/22 02/02/23 Unknown History cholecalciferol (vitamin D3) 50 50 mcg PO DAILY 02/02/23 02/02/23 Unknown History mcg (2,000 unit) tablet Physical Exam Vital Signs and Narrative: Vital Signs: Last Vital Signs Temp 98.4 F 02/02/23 16:19 Pulse 88 02/02/23 16:19 Resp 18 02/02/23 16:19 BP 145/70 H 02/02/23 16:19 Pulse Ox 95 02/02/23 16:19 O2 Del Method 02/02/23 16:19 BMI result Body Mass Index 25.2 Const: Other: Constitutional: Alert, in no distress, Mental Status: Oriented to person, place and time. Eyes: Pupils are equal, round and reactive to light. Ear, Nose and Throat: Oropharynx clear, mucous membranes moist. Ears and nose without eformities. Trachea midline. Respiratory: Clear to auscultation. No wheezing, rales or rhonchi. Cardiovascular: S1 S2 regular. No murmurs, rubs or gallops. Gastrointestinal: Abdomen soft, non-tender, non-distended. Normal bowel sounds.? Neurologic: Cranial nerves II-XII grossly intact. No focal neurological deficits. Moves all extremities spontaneously.? Skin: No rashes or lesions.? Musculoskeletal: No cyanosis or clubbing. Psychiatric: Normal mood and affect? Results Labs 02/02/23 08:23 02/02/23 08:23 Labs: Laboratory Results - last 24 hr 02/02/23 02/02/23 02/02/23 08:23 08:23 16:15 MCV 86.7 MCH 31.0 MCHC 35.7 RDW 12.5 Plt Count 223 MPV 9.8 Immature Gran % (Auto) Cancelled Neut % (Auto) Cancelled Lymph % (Auto) Cancelled [place] % (Auto) Cancelled Eos % (Auto) Cancelled Baso % (Auto) Cancelled Lymph # (Auto) Cancelled [place] # (Auto) Cancelled Eos # (Auto) Cancelled Baso # (Auto) Cancelled Abs Immat Gran (auto) Cancelled Absolute Neuts (auto) Cancelled Absolute Nucleated RBC 0.000 Nucleated RBC % (auto) 0.0 Neutrophils % (Manual) 83 H Band Neutrophils % 9 H Lymphocytes % (Manual) 2 L Monocytes % (Manual) 5 Basophils % (Manual) 1 Abs Neuts (Manual) 22.6 H Lymphocytes # (Manual) 0.5 L Monocytes # (Manual) 1.2 Basophils # (Manual) 0.2 Toxic Vacuolation PRESENT Platelet Estimate NORMAL Plt Morphology Comment NORMAL RBC Morphology NORMAL ESR 42 H Anion Gap 20 Estim Creat Clear Calc 38.2 Estimated GFR 37 Random Glucose 214 H Lactic Acid Calcium 9.5 C-Reactive Protein COVID-19 (SARAH) COVID-19 Managed Methods 02/02/23 02/02/23 02/02/23 16:15 16:16 16:53 MCV MCH MCHC RDW Plt Count MPV Immature Gran % (Auto) Neut % (Auto) Lymph % (Auto) [place] % (Auto) Eos % (Auto) Baso % (Auto) Lymph # (Auto) [place] # (Auto) Eos # (Auto) Baso # (Auto) Abs Immat Gran (auto) Absolute Neuts (auto) Absolute Nucleated RBC Nucleated RBC % (auto) Neutrophils % (Manual) Band Neutrophils % Lymphocytes % (Manual) Monocytes % (Manual) Basophils % (Manual) Abs Neuts (Manual) Lymphocytes # (Manual) Monocytes # (Manual) Basophils # (Manual) Toxic Vacuolation Platelet Estimate Plt Morphology Comment RBC Morphology ESR Anion Gap Estim Creat Clear Calc Estimated GFR Random Glucose Lactic Acid 1.8 Calcium C-Reactive Protein 28.38 H COVID-19 (SARAH) Negative COVID-19 Managed Methods See Note Imaging Radiologist's Impressions: Impressions Hand X-Ray 02/02/23 16:44 IMPRESSION: No acute abnormality. No radiographic evidence for osteomyelitis. Assessment and Plan (1) Cellulitis of right thumb: Status: Acute Plan 67 year old male with diabetes and other chronic medical issues as listed above here with right hand cellulitis with lymphagetic spread to arm --see pictures 1/Sepsis d/t Cellulitis of the right hand with lymphagetic spread, concern for streptococcus involvment, elevated crp and esr -Add Clinda 600 IV Q 6 -consider ID consult -follow blood culture 2/CHEKO--concern for ATN from spsis IVF and reassess, if worsening then get nephrology consult 3/ HTN--continue Norvasc 4/ HLD--statin 5/ Diabetes--no diabetes meds, add SSI 6/Hyperbilirubinenmia--This is chronic and NOT due to sepsis DVT prophylaixis: lovenox need for inpatitnet: Sepsis, cellulitis rapidly spreading and need IV Abx,CHEKO that needs IVF Time Spent With Patient Time: Total time managing care of this patient today ____ minutes. Quality Stroke Does the patient have a stroke diagnosis?: No VTE Prior VTE?: No VTE Risk Level:: Medical - moderate - high VTE Device Contraindication: Treatment Not Indicated VTE Drug Contraindication: N/A - Med Ordered
[2023-02-02 17:33] LABS: Alanine Aminotransferase 27 U/L (0-40); Albumin Level 4.4 g/dL (3.5-5.0); Alkaline Phosphatase 114 U/L (39-117); Aspartate Amino Transferase 22 U/L (5-37); Bilirubin Direct 0.8 mg/dL (0.0-0.5); Bilirubin Total 2.8 mg/dL (0.0-1.0); Total Protein 7.7 g/dL (6.5-8.0)
[2023-02-02] MEDS: Piperacillin Sodium/Tazobactam 3.375 GM in 0.9 % Sodium Chloride 50 ML IV (17:35)
[2023-02-02 17:38] VITALS: BP 151/77; PULSE 103; RESP 20; TEMP 36.9; O2SAT 95
--- NOTE | 2023-02-02 17:42 | PC.NURSE ---
Zosyn hanging per order. Pt reports 4/10 pain in right arm
[2023-02-02 17:49] VITALS: BP 135/78; PULSE 87; RESP 18; TEMP 36.8; O2SAT 96
[2023-02-02] MEDS: Acetaminophen 325 MG TABLET 975 MG PO (17:51)
--- NOTE | 2023-02-02 17:58 | PC.NURSE ---
pt given tylenol per order
--- NOTE | 2023-02-02 18:13 | PC.NURSE ---
vanco hanging per order
[2023-02-02] MEDS: Enoxaparin Sodium 40 MG/0.4 ML SYRINGE SUBCUT (19:21)
[2023-02-02] MEDS: Lactated Ringers 1,000 ML 125 ML IVCONT (19:21)
--- NOTE | 2023-02-02 19:24 | PC.NURSE ---
Lovenox given per order. LR hanging. PT Bed assignment ready.
--- NOTE | 2023-02-02 20:01 | PC.NURSE ---
report has been given, transport notified, vss, will continue to monitor
[2023-02-02 20:35] VITALS: BP 144/71; PULSE 79; RESP 18; TEMP 37; O2SAT 99
[2023-02-02] MEDS: Clindamycin Phosphate/D5W 600 MG/50 ML PIGGYBACK 100 MG IV (20:46)
[2023-02-02] MEDS: Atorvastatin Calcium 20 MG TABLET PO (20:47)
[2023-02-02 20:51] VITALS: BMI 25.9
[2023-02-03 03:37] VITALS: BP 137/65; PULSE 75; RESP 17; TEMP 36.8; O2SAT 95
[2023-02-03] MEDS: Clindamycin Phosphate/D5W 600 MG/50 ML PIGGYBACK 100 MG IV ×3 (03:42→18:14)
[2023-02-03] MEDS: Lactated Ringers 1,000 ML 125 ML IVCONT ×2 (03:43→13:57)
[2023-02-03] MEDS: Acetaminophen 325 MG TABLET 650 MG PO (05:55)
[2023-02-03 06:58] LABS: Hematocrit 39.6 % (42.0-52.0); Hemoglobin 14.3 g/dl (14.0-18.0); Mean Corpuscular HGB Conc 36.1 g/dl (31.0-36.0); Mean Corpuscular Hemoglobin 31.5 pg (27.0-33.0); Mean Corpuscular Volume 87.2 fL (80.0-98.0); Mean Platelet Volume 10.4 fL (9.4-12.4); Platelet Count 184 X10*3/uL (160-400); Red Blood Count 4.54 X10*6/uL (4.60-5.80); Red Cell Distribution Width 12.6 % (11.0-16.0)
[2023-02-03 07:18] LABS: Blood Urea Nitrogen 32 mg/dL (9-16); Creatinine Clr Calc Pharmacy 66.9; Estimated Glomerular Filt Rate > 60; Glucose Random 101 mg/dL (60-115)
[2023-02-03 07:33] LABS: Anion Gap 16 (12-20); Calcium 8.1 mg/dL (8.4-10.2); Carbon Dioxide 23 mmol/L (22-29); Chloride 102 mmol/L (96-108); Potassium 3.8 mmol/L (3.3-5.1); Sodium 137 mmol/L (135-145)
[2023-02-03 07:54] VITALS: BP 167/70; PULSE 78; RESP 18; TEMP 36.6; O2SAT 94
[2023-02-03] MEDS: Cholecalciferol (Vitamin D3) 25 MCG TABLET 50 MCG PO (08:43)
[2023-02-03] MEDS: amLODIPine Besylate 5 MG TABLET PO (08:43)
[2023-02-03] MEDS: Atorvastatin Calcium 20 MG TABLET PO (08:48)
--- NOTE | 2023-02-03 12:32 | PM.CNOR ---
History of Present Illness HPI Consult date: 02/03/23 Chief complaint: Cellulitis of the right hand and arm Narrative: This is a 67-year-old male with a history of hypertension who presents to the emergency room with complaints of right hand swelling, redness, pain noticed last evening with a temperature of 100 degrees F home.? Of note, patient was seen at urgent care two days ago and diagnosed with strep pharyngitis and started on amoxicillin.?Patient reports approximately a week ago he was working with wood and felt a splinter go into the right thumb dorsal aspect.? He thought that he removed the whole splinter.? However, two days ago he notice increasing pain and swelling and redness of the right hand.? Patient is right-hand dominant.? Patient denies any weakness, numbness, tingling of the extremity. Patient states he feels the splinter still under the skin on the dorsal aspect. Review of Systems Review of Systems: Yes all other systems are reviewed and are negative PMFSH Past Medical History Medical History Diabetes mellitus type 2, diet-controlled (~2014) Emphysema lung High cholesterol Hypertension Personal history of nicotine dependence PONV (postoperative nausea and vomiting) Tubular adenoma of colon (~2017) Family History Family History Father Hypertension DM2 (diabetes mellitus, type 2) Mother DM2 (diabetes mellitus, type 2) Hypertension Hemochromatosis Brother DM2 (diabetes mellitus, type 2) Sister DM2 (diabetes mellitus, type 2) Surgical History Surgical History History of cataract surgery History of cholecystectomy History of colonoscopy History of nasal septoplasty Hx of bilateral cataract extraction S/P tendon repair Social History Social History Household Members: Spouse Housing: House Do you presently have visiting nurse or other home services: No Alcohol intake: never Patient Tobacco Use Status: Former Tobacco user Quit Date: 2009 Tobacco use type: Cigarette Years Smoked: 25pyh, onset 25yo, 3/4-1ppd x 30yrs, quit 2009 Smoked in Last 30 Days: No Use of substances other than those prescribed or required for medical reasons: No Currently Displaying Signs/Symptoms of Drug Intoxication Withdrawal: No Have you been hit, kicked, punched, or otherwise hurt by someone within the past year? If so, by whom?: No Do you feel safe in your current relationship?: No Is there a partner from a previous relationship who is making you feel unsafe now?: No Advance Directives: No Advance Directives Information Provided: No Do you have thoughts of harming others: None Do you have a plan to hurt others: No Plan Recently lost weight without trying: No How much weight loss: Not applicable Eating poorly because of decreased appetite: No Nutrition screen score: 0 Nutrition Risks: No Nutritional Risk Poor oral hygiene: No Meds Allergies Allergy/AdvReac Type Severity Reaction Status Date / Time No Known Allergies Allergy Verified 10/15/22 14:29 [No Known Allergies*] Active Medications: Current Medications Acetaminophen (Acetaminophen 325 Mg Tablet) 650 mg PO Q6H PRN PRN Reason: Pain, Mild (Pain Scale 1-3) Last Admin: 02/03/23 05:55 Dose: 650 mg Amlodipine Besylate (Amlodipine Besylate 5 Mg Tablet) 5 mg PO DAILY [facility]; Protocol Last Admin: 02/03/23 08:43 Dose: 5 mg Atorvastatin Calcium (Atorvastatin Calcium 20 Mg Tablet) 20 mg PO DAILY [facility] Last Admin: 02/03/23 09:05 Dose: Not Given Enoxaparin Sodium (Enoxaparin Sodium 40 Mg/0.4 Ml Syringe) 40 mg SUBCUT Q24H [facility] Last Admin: 02/02/23 19:21 Dose: 40 mg Clindamycin Phosphate (Cleocin) 600 mg in 50 mls @ 100 mls/hr IV Q8H [facility] Last Infusion: 02/03/23 10:58 Dose: Infused Lactated Ringer's (Lr) 1,000 mls @ 125 mls/hr IVCONT .Q8H [facility] Last Infusion: 02/03/23 11:46 Dose: Infused Melatonin (Melatonin 3 Mg Tablet) 6 mg PO BEDTIME PRN PRN Reason: Insomnia Morphine Sulfate (Morphine Sulfate 4 Mg/Ml Cartridge) 2 mg IVPUSH Q4H PRN; Protocol PRN Reason: Pain, Severe (Pain Scale 7-10) Ondansetron HCl (Ondansetron Hcl 4 Mg/2 Ml Vial) 4 mg IVPUSH Q8H PRN PRN Reason: Nausea and Vomiting Oxycodone HCl (Oxycodone Hcl Immed Release 5 Mg Tablet) 5 mg PO Q6H PRN PRN Reason: Pain, Severe (Pain Scale 7-10) Pharmacy Consult (Consult Rx Perform Med Rec) 1 each MISCELLANE ONCE PRN PRN Reason: Consult order Sodium Chloride (0.9 % Sodium Chloride Flush 3 Ml Syringe) 3 ml IVFLUSH QSHIFT [facility] Last Admin: 02/03/23 06:55 Dose: Not Given Vitamin D (Cholecalciferol (Vitamin D3) 25 Mcg Tablet) 50 mcg PO DAILY [facility] Last Admin: 02/03/23 08:43 Dose: 50 mcg Home Medications Medication Instructions Recorded Confirmed Last Taken Type atorvastatin 40 mg tablet 20 mg PO BEDTIME 10/15/22 02/02/23 Unknown History amoxicillin STREP THROAT 02/02/23 Unknown History cholecalciferol (vitamin D3) 50 50 mcg PO DAILY 02/02/23 02/02/23 Unknown History mcg (2,000 unit) tablet Physical Exam Vital Signs: Vital Signs: Last Vital Signs Temp 97.8 F 02/03/23 07:54 Pulse 78 02/03/23 07:54 Resp 18 02/03/23 07:54 BP 167/70 H 02/03/23 07:54 Pulse Ox 94 02/03/23 07:54 O2 Del Method 02/03/23 07:54 BMI result Body Mass Index 25.9 Const: General: cooperative, healthy appearing and no acute distress Resp: Effort & Inspection: normal respiratory effort and able to speak in complete sentences Cardio: Rate: regular rate Peripheral pulses: Peripheral pulses 2+ throughout GI: Palpation (GI): Soft to palpation Skin: Lesions: no lesions Rashes: no rashes Extrem: Other: Right hand erythema and edema about the thumb on the dorsal and volar aspect. Able to bend at the IP and MCP. Area of flucuance over the dorsal aspect of the IP. No active drainage. Sensation reportedly intact along to ulnar and radial digital nerve. Lymphangetic streaking up the forearm extending to the bicep area. Able to make a full fist. No tenderness to palpation of the flexor tendons. Capillary refill is brisk. Radial pulse intact. Results Labs 02/03/23 05:17 02/03/23 05:17 Labs: Abnormal lab results 03/05/2202/02/23 02/02/23 Range/Units 08:23 16:15 16:15 WBC 24.6 H (4.8-10.8) X10*3/uL RBC (4.60-5.80) X10*6/uL Hct (42.0-52.0) % MCHC (31.0-36.0) g/dl Neutrophils % (Manual) 83 H (45-73) % Band Neutrophils % 9 H (3-5) % Lymphocytes % (Manual) 2 L (20-40) % Abs Neuts (Manual) 22.6 H (2.0-8.3) X10*3/uL Lymphocytes # (Manual) 0.5 L (1.2-4.9) X10*3/uL ESR 42 H (0-15) MM/HR BUN (9-16) mg/dL Calcium (8.4-10.2) mg/dL Total Bilirubin 2.8 H (0.0-1.0) mg/dL Direct Bilirubin 0.8 H (0.0-0.5) mg/dL C-Reactive Protein 28.38 H (< or = 0.50) mg/dL 02/03/23 02/03/23 Range/Units 05:17 05:17 WBC 16.0 H (4.8-10.8) X10*3/uL RBC 4.54 L (4.60-5.80) X10*6/uL Hct 39.6 L (42.0-52.0) % MCHC 36.1 H (31.0-36.0) g/dl Neutrophils % (Manual) (45-73) % Band Neutrophils % (3-5) % Lymphocytes % (Manual) (20-40) % Abs Neuts (Manual) (2.0-8.3) X10*3/uL Lymphocytes # (Manual) (1.2-4.9) X10*3/uL ESR (0-15) MM/HR BUN 32 H (9-16) mg/dL Calcium 8.1 L D (8.4-10.2) mg/dL Total Bilirubin (0.0-1.0) mg/dL Direct Bilirubin (0.0-0.5) mg/dL C-Reactive Protein (< or = 0.50) mg/dL H & H 03/06/23 03/07/23 Range/Units 08:23 05:17 Hgb 17.3 14.3 (14.0-18.0) g/dl Hct 48.4 39.6 L (42.0-52.0) % All other labs normal. Assessment and Plan (1) Cellulitis of right thumb: Status: Acute Cont IV abx Encourage gentle ROM Pain management as appropriate Plan for 48 hours of abx and likely irrigation and debridement on with Dr. Stout I discussed the case with Dr. Stout and explained the extent of the injury to the patient and options available which include surgical intervention. I explained the procedure in detail along with the length of recovery and rehab course. I explained the risk, benefits and alternatives. Risk including, but not limited to infection, blood clots, bleeding, non union or malunion and nerve/tissue damage to surrounding areas. I answered all their questions and with their understanding they have consented to move forward with irrigation and drainage of the right thumb. (2) Type 2 diabetes mellitus with unspecified complications: Status: Acute (3) Essential hypertension: Status: Acute Time Spent With Patient Time: Total time managing care of this patient today ____ minutes. Procedures Date of Service Date of Service: 02/03/23
--- NOTE | 2023-02-03 13:17 | MHC.CM.NN ---
pt is indepedent no servcies will be needed when dcd pt is covid vax x 3 has own ride home
--- NOTE | 2023-02-03 14:02 | HO.PM.IMPN ---
Subjective Subjective Date of Service: 02/03/23 Interval History: Right thumb pain and swelling, CHEKO Review of Systems still has thumb swellin/erythema no fevers Physical Exam Vital Signs: Vital Signs: Last Vital Signs Temp 97.8 F 02/03/23 07:54 Pulse 78 02/03/23 07:54 Resp 18 02/03/23 07:54 BP 167/70 H 02/03/23 07:54 Pulse Ox 94 02/03/23 07:54 O2 Del Method 02/03/23 07:54 BMI result Body Mass Index 25.9 Appearance: Alert.? Oriented X3.? not in distress.? cvs: rrr, [id number] , no murmur res: clear to auscultation ,no rhonchii or wheezing abd: no rebound or guarding ,nt, bs present. ext pulses present , no cyanosis ,right thumb-swellin/erythema ,also arm swellin. neuro: axo3 , nonfocal. Objective Data Active Medications Acetaminophen (Acetaminophen 325 Mg Tablet) 650 mg PO Q6H PRN PRN Reason: Pain, Mild (Pain Scale 1-3) Last Admin: 02/03/23 05:55 Dose: 650 mg Documented By: WALT Amlodipine Besylate (Amlodipine Besylate 5 Mg Tablet) 5 mg PO DAILY [facility]; Protocol Last Admin: 02/03/23 08:43 Dose: 5 mg Documented By: ROD Atorvastatin Calcium (Atorvastatin Calcium 20 Mg Tablet) 20 mg PO DAILY [facility] Last Admin: 02/03/23 09:05 Dose: Not Given Documented By: ROD Non-Admin Reason: given this am Enoxaparin Sodium (Enoxaparin Sodium 40 Mg/0.4 Ml Syringe) 40 mg SUBCUT Q24H [facility] Last Admin: 02/02/23 19:21 Dose: 40 mg Documented By: PRISCILLA Clindamycin Phosphate (Cleocin) 600 mg in 50 mls @ 100 mls/hr IV Q8H [facility] Last Infusion: 02/03/23 10:58 Dose: 0 mls/hr Documented By: ROD Lactated Ringer's (Lr) 1,000 mls @ 125 mls/hr IVCONT .Q8H [facility] Last Admin: 02/03/23 13:57 Dose: 125 mls/hr Documented By: ROD Melatonin (Melatonin 3 Mg Tablet) 6 mg PO BEDTIME PRN PRN Reason: Insomnia Morphine Sulfate (Morphine Sulfate 4 Mg/Ml Cartridge) 2 mg IVPUSH Q4H PRN; Protocol PRN Reason: Pain, Severe (Pain Scale 7-10) Ondansetron HCl (Ondansetron Hcl 4 Mg/2 Ml Vial) 4 mg IVPUSH Q8H PRN PRN Reason: Nausea and Vomiting Oxycodone HCl (Oxycodone Hcl Immed Release 5 Mg Tablet) 5 mg PO Q6H PRN PRN Reason: Pain, Severe (Pain Scale 7-10) Pharmacy Consult (Consult Rx Perform Med Rec) 1 each MISCELLANE ONCE PRN PRN Reason: Consult order Sodium Chloride (0.9 % Sodium Chloride Flush 3 Ml Syringe) 3 ml IVFLUSH QSHIFT [facility] Last Admin: 02/03/23 06:55 Dose: Not Given Documented By: ROD Non-Admin Reason: IV Running Vitamin D (Cholecalciferol (Vitamin D3) 25 Mcg Tablet) 50 mcg PO DAILY [facility] Last Admin: 02/03/23 08:43 Dose: 50 mcg Documented By: ROD Labs 02/03/23 05:17 02/03/23 05:17 Labs: Laboratory Results - last 24 hr 02/02/23 02/02/23 02/02/23 08:23 16:15 16:15 MCV 86.7 MCH 31.0 MCHC 35.7 RDW 12.5 Plt Count 223 MPV 9.8 Absolute Nucleated RBC 0.000 Nucleated RBC % (auto) 0.0 Neutrophils % (Manual) 83 H Band Neutrophils % 9 H Lymphocytes % (Manual) 2 L Monocytes % (Manual) 5 Basophils % (Manual) 1 Abs Neuts (Manual) 22.6 H Lymphocytes # (Manual) 0.5 L Monocytes # (Manual) 1.2 Basophils # (Manual) 0.2 Toxic Vacuolation PRESENT Platelet Estimate NORMAL Plt Morphology Comment NORMAL RBC Morphology NORMAL ESR 42 H Anion Gap Estim Creat Clear Calc Estimated GFR Random Glucose Lactic Acid Calcium Total Bilirubin 2.8 H Direct Bilirubin 0.8 H AST 22 ALT 27 Alkaline Phosphatase 114 C-Reactive Protein 28.38 H Total Protein 7.7 Albumin 4.4 COVID-19 ([facility]) COVID-19 Clin Com 02/02/23 02/02/23 02/03/23 16:16 16:53 05:17 MCV 87.2 MCH 31.5 MCHC 36.1 H RDW 12.6 Plt Count 184 MPV 10.4 Absolute Nucleated RBC 0.000 Nucleated RBC % (auto) 0.0 Neutrophils % (Manual) Band Neutrophils % Lymphocytes % (Manual) Monocytes % (Manual) Basophils % (Manual) Abs Neuts (Manual) Lymphocytes # (Manual) Monocytes # (Manual) Basophils # (Manual) Toxic Vacuolation Platelet Estimate Plt Morphology Comment RBC Morphology ESR Anion Gap Estim Creat Clear Calc Estimated GFR Random Glucose Lactic Acid 1.8 Calcium Total Bilirubin Direct Bilirubin AST ALT Alkaline Phosphatase C-Reactive Protein Total Protein Albumin COVID-19 ([facility]AH) Negative COVID-19 Clin Com See Note 02/03/23 05:17 MCV MCH MCHC RDW Plt Count MPV Absolute Nucleated RBC Nucleated RBC % (auto) Neutrophils % (Manual) Band Neutrophils % Lymphocytes % (Manual) Monocytes % (Manual) Basophils % (Manual) Abs Neuts (Manual) Lymphocytes # (Manual) Monocytes # (Manual) Basophils # (Manual) Toxic Vacuolation Platelet Estimate Plt Morphology Comment RBC Morphology ESR Anion Gap 16 Estim Creat Clear Calc 66.9 Estimated GFR > 60 Random Glucose 101 Lactic Acid Calcium 8.1 L D Total Bilirubin Direct Bilirubin AST ALT Alkaline Phosphatase C-Reactive Protein Total Protein Albumin COVID-19 ([facility]) COVID-19 Clin Com Assessment and Plan (1) Cellulitis of right thumb: Status: Acute (2) Type 2 diabetes mellitus with unspecified complications: Status: Acute (3) CHEKO (acute kidney injury): Status: Acute Plan 67 year old male with diabetes and other chronic medical issues as listed above here? with right hand cellulitis with lymphagetic spread to arm --see pictures 1/Sepsis d/t? Cellulitis of the right hand with lymphagetic spread, concern for streptococcus involvment, elevated crp and esr wbc improving , no fevers follow blood culture ID consult- mitchell and berto guerrao trough surgery eval noted-Plan for 48 hours of abx and likely irrigation and debridement on with Dr. Stout 2/CHEKO--concern for ATN from spsis IVF and reassess, if worsening then get nephrology consult 3/ HTN--continue Norvasc 4/ HLD--statin 5/ Diabetes--no diabetes meds, add SSI 6/Hyperbilirubinenmia--This is chronic and NOT due to sepsis DVT prophylaixis: lovenox need for inpatitnet: Sepsis, cellulitis rapidly spreading and need IV Abx,CHEKO that needs IVF. Time Spent With Patient Time: Total time managing care of this patient today ____ minutes. Quality Stroke Does the patient have a stroke diagnosis?: No VTE Prior VTE?: No VTE Risk Level:: Medical - moderate - high VTE Device Contraindication: Treatment Not Indicated VTE Drug Contraindication: N/A - Med Ordered
--- NOTE | 2023-02-03 14:46 | PHA.PROG ---
Admission Date/Time: February 02, 2023 17:50 Indication: SKIN/SKIN STRUCTURE Weight in k.5 kg Adjusted body weight in K.04 [place] body weight in Kg: Obesity Dosing Indication % IBW: Serum Creatinine - Last 168 Hours 02/02/23 02/03/23 08:23 05:17 Creatinine 1.84 H 1.05 Estimated CrCl and GFR - Last 168 Hours 02/02/23 02/03/23 08:23 05:17 Estim Creat Clear Calc 38.2 66.9 Estimated GFR 37 > 60 Vancomycin Loading Dose: 2000MG Current Vancomycin Dosing Regimen: 750 MG Q12H Vancomycin Monitoring using AUC goal of 400 - 600 range with trough as surrogate marker: AUC 474, TROUGH 15.8 Date and Time for next Vancomycin Level to be drawn: 02/04 @1300 Pharmacist Comments on Vancomycin Plan: Vancomycin dosing will take advantage of [employer] as a clinical decision support tool that uses Bayesian modeling to calculate individual patient's pharmacokinetic parameters and forecast the patient's drug concentration time course with the target goal AUC 24 range of 400 - 600 mg/L/hr.
[2023-02-03 15:19] VITALS: BP 174/81; PULSE 86; RESP 18; TEMP 36.9; O2SAT 93
[2023-02-03] MEDS: vancomycin HCL 750 MG in 0.9 % Sodium Chloride 250 ML 265 MG IV (15:43)
[2023-02-03] MEDS: Enoxaparin Sodium 40 MG/0.4 ML SYRINGE SUBCUT (17:10)
[2023-02-03] MEDS: Piperacillin Sodium/Tazobactam 3.375 GM in 0.9 % Sodium Chloride 50 ML IV ×2 (17:10→21:15)
[2023-02-03 19:34] VITALS: BP 170/69; PULSE 81; RESP 18; TEMP 37.1; O2SAT 97
[2023-02-04] MEDS: Lactated Ringers 1,000 ML 125 ML IVCONT (00:05)
[2023-02-04] MEDS: Clindamycin Phosphate/D5W 600 MG/50 ML PIGGYBACK 100 MG IV ×3 (02:23→18:04)
[2023-02-04] MEDS: vancomycin HCL 750 MG in 0.9 % Sodium Chloride 250 ML 265 MG IV ×2 (02:57→14:54)
[2023-02-04 03:11] VITALS: BP 174/79; PULSE 72; RESP 18; TEMP 37.1; O2SAT 94
[2023-02-04] MEDS: Piperacillin Sodium/Tazobactam 3.375 GM in 0.9 % Sodium Chloride 50 ML IV ×4 (03:59→21:04)
[2023-02-04] MEDS: Acetaminophen 325 MG TABLET 650 MG PO (04:02)
--- NOTE | 2023-02-04 07:21 | PM.PNORT ---
Subjective Subjective Date of Service: 02/04/23 Interval history: 67 yo male with Right thumb cellulitis / abscess -no overnight events -he feels the redness has improved and pain is tolerable to none Physical Exam Vital Signs: Vital Signs: Last Vital Signs Temp 98.8 F 02/04/23 03:11 Pulse 72 02/04/23 03:11 Resp 18 02/04/23 03:11 BP 174/79 H 02/04/23 03:11 Pulse Ox 94 02/04/23 03:11 O2 Del Method 02/04/23 03:11 BMI result Body Mass Index 25.9 Const: General: cooperative, healthy appearing and no acute distress Resp: Effort & Inspection: normal respiratory effort and able to speak in complete sentences Cardio: Rate: regular rate Peripheral pulses: Peripheral pulses 2+ throughout GI: Palpation (GI): Soft to palpation Skin: Lesions: no lesions Rashes: no rashes Extrem: Other: Right hand erythema and edema about the thumb on the dorsal and volar aspect. Able to bend at the IP and MCP. Area of flucuance over the dorsal aspect of the IP. No active drainage. Sensation reportedly intact along to ulnar and radial digital nerve. Lymphangetic streaking extended to the base of the thumb only Able to make a full fist. No tenderness to palpation of the flexor tendons. Capillary refill is brisk. Radial pulse intact. Procedures Date of Service Date of Service: 02/04/23 Progress Note: A&P Assessment and plan (1) Cellulitis of right thumb: Status: Acute Assessment and Plan: Continue iwth IV abx and monitor symptoms Will keep NPO incase he needs to be brought to the OR tomorrow for I&D --this was discussed with him during the initial consultation and he is in agreement Time Spent With Patient Time: Total time managing care of this patient today ____ minutes. Quality Stroke Does the patient have a stroke diagnosis?: No VTE Prior VTE?: No VTE Risk Level:: Medical - moderate - high VTE Device Contraindication: Treatment Not Indicated VTE Drug Contraindication: N/A - Med Ordered
[2023-02-04 07:53] VITALS: BP 164/79; PULSE 66; RESP 18; TEMP 36.6; O2SAT 94
[2023-02-04] MEDS: Cholecalciferol (Vitamin D3) 25 MCG TABLET 50 MCG PO (08:21)
[2023-02-04] MEDS: amLODIPine Besylate 10 MG TABLET PO (08:21)
[2023-02-04] MEDS: Atorvastatin Calcium 20 MG TABLET PO (08:21)
[2023-02-04 08:45] LABS: Anion Gap 12 (12-20); Blood Urea Nitrogen 18 mg/dL (9-16); Calcium 8.6 mg/dL (8.4-10.2); Carbon Dioxide 26 mmol/L (22-29); Chloride 106 mmol/L (96-108); Creatinine Clr Calc Pharmacy 65.7; Estimated Glomerular Filt Rate > 60; Glucose Random 111 mg/dL (60-115); Sodium 140 mmol/L (135-145)
--- NOTE | 2023-02-04 13:06 | HO.PM.IMPN ---
Subjective Subjective Date of Service: 02/04/23 Interval History: Right thumb pain and swelling, CHEKO Review of Systems still has thumb swellin/erythema seems similar to yesterday rom-fist makin improvin no fevers Physical Exam Vital Signs: Vital Signs: Last Vital Signs Temp 97.8 F 02/04/23 07:53 Pulse 66 02/04/23 07:53 Resp 18 02/04/23 07:53 BP 164/79 H 02/04/23 07:53 Pulse Ox 94 02/04/23 07:53 O2 Del Method 02/04/23 07:53 BMI result Body Mass Index 25.9 Appearance: Alert.? Oriented X3.? not in distress.? cvs: rrr, [id number] , no murmur res: clear to auscultation ,no rhonchii or wheezing abd: no rebound or guarding ,nt, bs present. ext pulses present , no cyanosis ,right thumb-swellin/erythema ,also arm swellin. neuro: axo3 , nonfocal. Objective Data Active Medications Acetaminophen (Acetaminophen 325 Mg Tablet) 650 mg PO Q6H PRN PRN Reason: Pain, Mild (Pain Scale 1-3) Last Admin: 02/04/23 04:02 Dose: 650 mg Documented By: MADDIE Amlodipine Besylate (Amlodipine Besylate 10 Mg Tablet) 10 mg PO DAILY [facility]; Protocol Last Admin: 02/04/23 08:21 Dose: 10 mg Documented By: JESUS Atorvastatin Calcium (Atorvastatin Calcium 20 Mg Tablet) 20 mg PO DAILY [facility] Last Admin: 02/04/23 08:21 Dose: 20 mg Documented By: JESUS Enoxaparin Sodium (Enoxaparin Sodium 40 Mg/0.4 Ml Syringe) 40 mg SUBCUT Q24H [facility] Last Admin: 02/03/23 17:10 Dose: 40 mg Documented By: DABDenilson Clindamycin Phosphate (Cleocin) 600 mg in 50 mls @ 100 mls/hr IV Q8H [facility] Last Infusion: 02/04/23 11:37 Dose: 0 mls/hr Documented By: JESUS Vancomycin HCl 750 mg/ Sodium (Chloride) 265 mls @ 265 mls/hr IV Q12H [facility] Last Infusion: 02/04/23 04:03 Dose: 0 mls/hr Documented By: MADDIE Piperacillin Sod/Tazobactam (Sod 3.375 gm/ Sodium Chloride) 50 mls @ 100 mls/hr IV Q6H [facility] Last Infusion: 02/04/23 10:54 Dose: 0 mls/hr Documented By: JESUS Melatonin (Melatonin 3 Mg Tablet) 6 mg PO BEDTIME PRN PRN Reason: Insomnia Morphine Sulfate (Morphine Sulfate 4 Mg/Ml Cartridge) 2 mg IVPUSH Q4H PRN; Protocol PRN Reason: Pain, Severe (Pain Scale 7-10) Ondansetron HCl (Ondansetron Hcl 4 Mg/2 Ml Vial) 4 mg IVPUSH Q8H PRN PRN Reason: Nausea and Vomiting Oxycodone HCl (Oxycodone Hcl Immed Release 5 Mg Tablet) 5 mg PO Q6H PRN PRN Reason: Pain, Severe (Pain Scale 7-10) Pharmacy Consult (Consult Rx Perform Med Rec) 1 each MISCELLANE ONCE PRN PRN Reason: Consult order Pharmacy Consult (Consult Rx Vancomycin Dosing) 1 each MISCELLANE DAILY PRN PRN Reason: Consult order Sodium Chloride (0.9 % Sodium Chloride Flush 3 Ml Syringe) 3 ml IVFLUSH QSHIFT [facility] Last Admin: 02/04/23 06:35 Dose: Not Given Documented By: ROD Non-Admin Reason: IV Running Vitamin D (Cholecalciferol (Vitamin D3) 25 Mcg Tablet) 50 mcg PO DAILY [facility] Last Admin: 02/04/23 08:21 Dose: 50 mcg Documented By: JESUS Labs 02/03/23 05:17 02/04/23 08:03 Labs: Laboratory Results - last 24 hr 02/04/23 08:03 Anion Gap 12 Estim Creat Clear Calc 65.7 Estimated GFR > 60 Random Glucose 111 Calcium 8.6 D Microbiology Microbiology Results: Microbiology 02/02/23 17:17 Blood Culture - Preliminary Blood - Venous No growth after 24 hours. 02/02/23 16:16 Blood Culture - Preliminary Blood - Venous No growth after 24 hours. Assessment and Plan (1) CHEKO (acute kidney injury): Status: Acute (2) Cellulitis of right thumb: Status: Acute Plan 67 year old male with diabetes and other chronic medical issues as listed above here? with right hand cellulitis with lymphagetic spread to arm --see pictures 1.Sepsis d/t? Cellulitis of the right hand with lymphagetic spread, concern for streptococcus involvment, elevated crp and esr wbc improving , no fevers,follow blood culture vanco trough 11.5 today ID consult-continue vanco and zosyn. surgery eval noted-Plan for 48 hours of abx and likely irrigation and debridement on with ortho, npo past midnight 2/CHEKO-seems improved , dc ivf. 3/ HTN--continue Norvasc. 4/ HLD--statin 5/ Diabetes--no diabetes meds, add SSI 6/Hyperbilirubinenmia--This is chronic and NOT due to sepsis DVT prophylaixis: lovenox need for inpatitnet: Sepsis, cellulitis rapidly spreading and need IV Abx,possible orthopedic interevntion leida. Time Spent With Patient Time: Total time managing care of this patient today ____ minutes. Quality Stroke Does the patient have a stroke diagnosis?: No VTE Prior VTE?: No VTE Risk Level:: Medical - moderate - high VTE Device Contraindication: Treatment Not Indicated VTE Drug Contraindication: N/A - Med Ordered
[2023-02-04 13:20] LABS: Vancomycin Random 11.5 mcg/mL (15-20)
[2023-02-04 16:00] VITALS: BP 184/86; PULSE 62; RESP 18; TEMP 37; O2SAT 97
[2023-02-04] MEDS: 0.9 % Sodium Chloride Flush 3 ML SYRINGE IVFLUSH ×2 (16:54→21:04)
[2023-02-04] MEDS: Enoxaparin Sodium 40 MG/0.4 ML SYRINGE SUBCUT (17:35)
[2023-02-04 20:00] VITALS: BP 162/70; PULSE 70; RESP 18; TEMP 37.1; O2SAT 98
[2023-02-05] VITALS (11 sets, daily range): BP systolic 145–182; BP diastolic 64–87; PULSE 67–82; RESP 16–18; TEMP 36.2–36.9; O2SAT 93–96
[2023-02-05] MEDS: Clindamycin Phosphate/D5W 600 MG/50 ML PIGGYBACK 100 MG IV ×3 (03:22→18:03)
[2023-02-05] MEDS: vancomycin HCL 750 MG in 0.9 % Sodium Chloride 250 ML 265 MG IV (03:59)
[2023-02-05] MEDS: Piperacillin Sodium/Tazobactam 3.375 GM in 0.9 % Sodium Chloride 50 ML IV ×4 (05:03→21:43)
[2023-02-05 06:28] LABS: Creatinine Clr Calc Pharmacy 66.3; Estimated Glomerular Filt Rate > 60
--- NOTE | 2023-02-05 07:30 | P.CONAN_ITS ---
HPI - Anesthesia Eval Consult details Narrative: for debridement infected finger left hand PMFSH Active Problems Active Problems: All Active Problems (Updated 02/03/23 @ 18:43 by Adam Lin MD) CHEKO (acute kidney injury) (Acute) Cellulitis of right thumb (Acute) Type 2 diabetes mellitus with unspecified complications (Acute) Essential hypertension (Acute) Coronary artery calcification seen on CAT scan (Acute) Emphysema lung (Acute) Personal history of nicotine dependence (Acute) Past Medical History Medical History Diabetes mellitus type 2, diet-controlled (~2014) Emphysema lung High cholesterol Hypertension Personal history of nicotine dependence PONV (postoperative nausea and vomiting) Tubular adenoma of colon (~2017) Family History Family History Father Hypertension DM2 (diabetes mellitus, type 2) Mother DM2 (diabetes mellitus, type 2) Hypertension Hemochromatosis Brother DM2 (diabetes mellitus, type 2) Sister DM2 (diabetes mellitus, type 2) Family history of problems with anesthesia: No Surgical History Surgical History History of cataract surgery History of cholecystectomy History of colonoscopy History of nasal septoplasty Hx of bilateral cataract extraction S/P tendon repair History of Problems with Anesthesia: No Social History Social History Household Members: Spouse Housing: House Do you presently have visiting nurse or other home services: No Alcohol intake: never Patient Tobacco Use Status: Former Tobacco user Quit Date: 2009 Tobacco use type: Cigarette Years Smoked: 25pyh, onset 25yo, 3/4-1ppd x 30yrs, quit 2009 Smoked in Last 30 Days: No Second Hand Smoke Exposure: No Use of substances other than those prescribed or required for medical reasons: No Currently Displaying Signs/Symptoms of Drug Intoxication Withdrawal: No Have you been hit, kicked, punched, or otherwise hurt by someone within the past year? If so, by whom?: No Do you feel safe in your current relationship?: No Is there a partner from a previous relationship who is making you feel unsafe now?: No Are you DNR?: No Advance Directives: No Advance Directives Information Provided: No Advance Directives on File: No Do you have thoughts of harming others: None Do you have a plan to hurt others: No Plan Recently lost weight without trying: No How much weight loss: Not applicable Eating poorly because of decreased appetite: No Nutrition screen score: 0 Nutrition Risks: No Nutritional Risk Poor oral hygiene: No service: No Meds Allergies Allergy/AdvReac Type Severity Reaction Status Date / Time No Known Allergies Allergy Verified 10/15/22 14:29 [No Known Allergies*] Active Medications: Current Medications Acetaminophen (Acetaminophen 325 Mg Tablet) 650 mg PO Q6H PRN PRN Reason: Pain, Mild (Pain Scale 1-3) Last Admin: 02/04/23 04:02 Dose: 650 mg Amlodipine Besylate (Amlodipine Besylate 10 Mg Tablet) 10 mg PO DAILY [facility]; Protocol Last Admin: 02/04/23 08:21 Dose: 10 mg Atorvastatin Calcium (Atorvastatin Calcium 20 Mg Tablet) 20 mg PO DAILY [facility] Last Admin: 02/04/23 08:21 Dose: 20 mg Enoxaparin Sodium (Enoxaparin Sodium 40 Mg/0.4 Ml Syringe) 40 mg SUBCUT Q24H [facility] Last Admin: 02/04/23 17:35 Dose: 40 mg Clindamycin Phosphate (Cleocin) 600 mg in 50 mls @ 100 mls/hr IV Q8H [facility] Last Infusion: 02/05/23 04:03 Dose: Infused Vancomycin HCl 750 mg/ Sodium (Chloride) 265 mls @ 265 mls/hr IV Q12H [facility] Last Infusion: 02/05/23 05:06 Dose: Infused Piperacillin Sod/Tazobactam (Sod 3.375 gm/ Sodium Chloride) 50 mls @ 100 mls/hr IV Q6H [facility] Last Infusion: 02/05/23 05:37 Dose: Infused Melatonin (Melatonin 3 Mg Tablet) 6 mg PO BEDTIME PRN PRN Reason: Insomnia Morphine Sulfate (Morphine Sulfate 4 Mg/Ml Cartridge) 2 mg IVPUSH Q4H PRN; Protocol PRN Reason: Pain, Severe (Pain Scale 7-10) Ondansetron HCl (Ondansetron Hcl 4 Mg/2 Ml Vial) 4 mg IVPUSH Q8H PRN PRN Reason: Nausea and Vomiting Oxycodone HCl (Oxycodone Hcl Immed Release 5 Mg Tablet) 5 mg PO Q6H PRN PRN Reason: Pain, Severe (Pain Scale 7-10) Pharmacy Consult (Consult Rx Perform Med Rec) 1 each MISCELLANE ONCE PRN PRN Reason: Consult order Pharmacy Consult (Consult Rx Vancomycin Dosing) 1 each MISCELLANE DAILY PRN PRN Reason: Consult order Sodium Chloride (0.9 % Sodium Chloride Flush 3 Ml Syringe) 3 ml IVFLUSH QSHIFT [facility] Last Admin: 02/04/23 21:04 Dose: 3 ml Vitamin D (Cholecalciferol (Vitamin D3) 25 Mcg Tablet) 50 mcg PO DAILY [facility] Last Admin: 02/04/23 08:21 Dose: 50 mcg Home Medications Medication Instructions Recorded Confirmed Last Taken Type atorvastatin 40 mg tablet 20 mg PO BEDTIME 10/15/22 02/02/23 Unknown History amoxicillin STREP THROAT 02/02/23 Unknown History cholecalciferol (vitamin D3) 50 50 mcg PO DAILY 02/02/23 02/02/23 Unknown History mcg (2,000 unit) tablet Exam Exam Date and Time: February 05, 2023 0730 Height,Weight and Vital Signs: Height 5 ft 8 in Weight 77.5 kg Last Vital Signs Temp 98.5 F 02/05/23 06:28 Pulse 77 02/05/23 06:28 Resp 16 02/05/23 06:28 BP 182/78 H 02/05/23 06:28 Pulse Ox 95 02/05/23 06:28 O2 Del Method 02/05/23 06:28 Pertinent Lab Results Pertinent Lab Results: Laboratory Tests 02/02/23 02/02/23 02/02/23 08:23 08:23 16:15 WBC 24.6 H RBC 5.58 Hgb 17.3 Hct 48.4 MCV 86.7 MCH 31.0 MCHC 35.7 RDW 12.5 Plt Count 223 MPV 9.8 Immature Gran % (Auto) Cancelled Neut % (Auto) Cancelled Lymph % (Auto) Cancelled [place] % (Auto) Cancelled Eos % (Auto) Cancelled Baso % (Auto) Cancelled Lymph # (Auto) Cancelled [place] # (Auto) Cancelled Eos # (Auto) Cancelled Baso # (Auto) Cancelled Abs Immat Gran (auto) Cancelled Absolute Neuts (auto) Cancelled Absolute Nucleated RBC 0.000 Nucleated RBC % (auto) 0.0 Neutrophils % (Manual) 83 H Band Neutrophils % 9 H Lymphocytes % (Manual) 2 L Monocytes % (Manual) 5 Basophils % (Manual) 1 Abs Neuts (Manual) 22.6 H Lymphocytes # (Manual) 0.5 L Monocytes # (Manual) 1.2 Basophils # (Manual) 0.2 Toxic Vacuolation PRESENT Platelet Estimate NORMAL Plt Morphology Comment NORMAL RBC Morphology NORMAL ESR 42 H Sodium 138 Potassium 4.7 Chloride 97 Carbon Dioxide 26 Anion Gap 20 BUN 30 H Creatinine 1.84 H Estim Creat Clear Calc 38.2 Estimated GFR 37 Random Glucose 214 H Lactic Acid Calcium 9.5 Total Bilirubin Direct Bilirubin AST ALT Alkaline Phosphatase C-Reactive Protein Total Protein Albumin Random Vancomycin COVID-19 (SARAH) COVID-19 Clin Com 02/02/23 02/02/23 02/02/23 16:15 16:16 16:53 WBC RBC Hgb Hct MCV MCH MCHC RDW Plt Count MPV Immature Gran % (Auto) Neut % (Auto) Lymph % (Auto) [place] % (Auto) Eos % (Auto) Baso % (Auto) Lymph # (Auto) [place] # (Auto) Eos # (Auto) Baso # (Auto) Abs Immat Gran (auto) Absolute Neuts (auto) Absolute Nucleated RBC Nucleated RBC % (auto) Neutrophils % (Manual) Band Neutrophils % Lymphocytes % (Manual) Monocytes % (Manual) Basophils % (Manual) Abs Neuts (Manual) Lymphocytes # (Manual) Monocytes # (Manual) Basophils # (Manual) Toxic Vacuolation Platelet Estimate Plt Morphology Comment RBC Morphology ESR Sodium Potassium Chloride Carbon Dioxide Anion Gap BUN Creatinine Estim Creat Clear Calc Estimated GFR Random Glucose Lactic Acid 1.8 Calcium Total Bilirubin 2.8 H Direct Bilirubin 0.8 H AST 22 ALT 27 Alkaline Phosphatase 114 C-Reactive Protein 28.38 H Total Protein 7.7 Albumin 4.4 Random Vancomycin COVID-19 ([facility]AR[facility]) Negative COVID-19 Clin Com See Note 02/03/23 02/03/23 02/04/23 05:17 05:17 08:03 WBC 16.0 H RBC 4.54 L Hgb 14.3 Hct 39.6 L MCV 87.2 MCH 31.5 MCHC 36.1 H RDW 12.6 Plt Count 184 MPV 10.4 Immature Gran % (Auto) Neut % (Auto) Lymph % (Auto) [place] % (Auto) Eos % (Auto) Baso % (Auto) Lymph # (Auto) [place] # (Auto) Eos # (Auto) Baso # (Auto) Abs Immat Gran (auto) Absolute Neuts (auto) Absolute Nucleated RBC 0.000 Nucleated RBC % (auto) 0.0 Neutrophils % (Manual) Band Neutrophils % Lymphocytes % (Manual) Monocytes % (Manual) Basophils % (Manual) Abs Neuts (Manual) Lymphocytes # (Manual) Monocytes # (Manual) Basophils # (Manual) Toxic Vacuolation Platelet Estimate Plt Morphology Comment RBC Morphology ESR Sodium 137 140 Potassium 3.8 4.0 Chloride 102 106 Carbon Dioxide 23 26 Anion Gap 16 12 BUN 32 H 18 H Creatinine 1.05 1.07 Estim Creat Clear Calc 66.9 65.7 Estimated GFR > 60 > 60 Random Glucose 101 111 Lactic Acid Calcium 8.1 L D 8.6 D Total Bilirubin Direct Bilirubin AST ALT Alkaline Phosphatase C-Reactive Protein Total Protein Albumin Random Vancomycin COVID-19 ([facility]) COVID-19 [employer] 02/04/23 02/05/23 12:52 05:20 WBC RBC Hgb Hct MCV MCH MCHC RDW Plt Count MPV Immature Gran % (Auto) Neut % (Auto) Lymph % (Auto) [place] % (Auto) Eos % (Auto) Baso % (Auto) Lymph # (Auto) [place] # (Auto) Eos # (Auto) Baso # (Auto) Abs Immat Gran (auto) Absolute Neuts (auto) Absolute Nucleated RBC Nucleated RBC % (auto) Neutrophils % (Manual) Band Neutrophils % Lymphocytes % (Manual) Monocytes % (Manual) Basophils % (Manual) Abs Neuts (Manual) Lymphocytes # (Manual) Monocytes # (Manual) Basophils # (Manual) Toxic Vacuolation Platelet Estimate Plt Morphology Comment RBC Morphology ESR Sodium Potassium Chloride Carbon Dioxide Anion Gap BUN Creatinine 1.06 Estim Creat Clear Calc 66.3 Estimated GFR > 60 Random Glucose Lactic Acid Calcium Total Bilirubin Direct Bilirubin AST ALT Alkaline Phosphatase C-Reactive Protein Total Protein Albumin Random Vancomycin 11.5 L COVID-19 ([facility]) COVID-19 [employer] Airway Mallampati Class: II TM Dist: >3cm Neck ROM: Full Heart: rrr Lungs: cta Assessment and Plan Assessment Anesthesia Assessment: Anesthesia Plan Discussed and Chart Reviewed Final Anesthetic Review Family History of Problems with Anesthesia: No History of Problems with Anesthesia: No NPO: Yes ASA Class: III Final Preanesthetic Review: No Changes in Pt Med Stat, Meds/Allgs Chart Reviewed, Consent Obtained/Reviewed and Anes Risks/Benef Reviewed Patient Risk: Intermediate Procedure Risk: Low Anesthetic Plan Anesthetic Plan: GA Disposition: Standard PACU
--- NOTE | 2023-02-05 07:43 | MHC.SHP ---
Pre-Procedural Eval Section A Date of Service: 02/05/23 The patient is an INPATIENT: No Changes since office visit: No Cold of Flu in the past 2 weeks, No New Medical Problems, No Changes in Medication and No Patient answered all questions The History & Physical has been completed within 30 days and I have reviewed it.: Yes Section B Chief Complaint: Cellulitis of the right hand and arm Allergies: Allergies Allergy/AdvReac Type Severity Reaction Status Date / Time No Known Allergies Allergy Verified 10/15/22 14:29 [No Known Allergies*] Plan I have reviewed the history and physical and performed a pertinent physical examination on my patient. No changes have occurred unless specified. Time Spent With Patient Time: Total time managing care of this patient today ____ minutes.
--- NOTE | 2023-02-05 07:44 | MHC.SHP ---
Pre-Procedural Eval Section A Date of Service: 02/05/23 The patient is an INPATIENT: No Changes since office visit: No Cold of Flu in the past 2 weeks, No New Medical Problems, No Changes in Medication and No Patient answered all questions The History & Physical has been completed within 30 days and I have reviewed it.: Yes Section B Chief Complaint: Cellulitis of the right hand and arm Allergies: Allergies Allergy/AdvReac Type Severity Reaction Status Date / Time No Known Allergies Allergy Verified 10/15/22 14:29 [No Known Allergies*] Plan I have reviewed the history and physical and performed a pertinent physical examination on my patient. No changes have occurred unless specified. For I&D of his right hand/thumb and possible foreign body removal Time Spent With Patient Time: Total time managing care of this patient today ____ minutes.
--- NOTE | 2023-02-05 07:44 | W.PM.OPN ---
Operative Note Operative Note Date of Service: 02/05/23 Narrative: Operative Note Narrative: Preop diagnosis: 1. Right thumb infection and possible foreign body Postop diagnosis: Same Procedure: 1. Right thumb I and D Surgeon: Sofi Stout MD Anesthesia: General Anesthesia Findings: No gross purulence found. No foreign body found. Implants: None Tourniquet time: 18 minutes EBL: 5.0 ml Specimen: Cultures of watery serosanguineous appearing fluid from the dorsal and then the volar aspect of the thumb Drains: None Complications: None Disposition: Brought to the recovery room in stable condition Plan: Admit back to floor. Continue IV antibiotics. Check cultures. Wound check tomorrow . Follow-up next week for wound check, suture removal and to again check cultures Indications: The patient is a 67-year-old man with a right thumb infection and possible wooden splinter . I examined the patient in preop hold and palpated to see if there was a particularly reproducible area of tenderness which would more likely indicate the presence of a foreign body. Other than the entry site on the volar aspect of the thumb just proximal to the IP flexion crease, he did not have any particular areas of tenderness despite repetitive examination. This does make it less likely that a foreign body is still present. The risks and benefits of operative treatment, including but not limited to risk of damage to blood vessels, nerves, tendons, infection, recurrence, persistent pain or numbness, incomplete resolution of preoperative symptoms, or need for further surgery were discussed with the patient and they wished to proceed with surgery. Procedure: Once consent was obtained patient was brought back to the operating suite and placed in the operating table in a supine position. . Perioperative antibiotics and anesthesia was administered by the anesthesia team. A tourniquet was applied to the proximal aspect of the right upper extremity and the limb was prepped and draped in a standard surgical fashion. The limb was elevated and the tourniquet inflated to 250 mm of mercury for a total tourniquet time of 18 minutes. I made an oblique incision over the volar aspect of the right thumb proximal phalanx over the area where the patient believes the wooden splinter entered his thumb. Again the patient remembers removing the splinter, but was not sure if something might of been left in his thumb. The incision was made with a 15. Blade through the skin to the subcutaneous tissues. I then dissected down to the level of the tendon sheath. The radial digital nerve was also visualized. There was some watery serosanguineous fluid but no creamy purulence visualized. I explored the area but did not find any foreign body. Cultures were taken of the watery fluid. I then turned my attention to the dorsal aspect of the right thumb. He had a large blister measuring perhaps 1.8 cm in diameter directly over the dorsal aspect of the IP joint. This tissue was removed. I did not see any open wound deep to this blister. The fluid was cultured. As he had not been particularly tender over this aspect of the thumb, and I did not see significant evidence of abscess in this area. I elected not to make an incision through the skin. At this point the wounds were copiously irrigated with normal saline. The tourniquet was deflated and hemostasis obtained with a brief period of local pressure and bipolar electrocautery. The wound was again copiously irrigated with normal saline. The skin edges were loosely reapproximated with 5-0 nylon suture. A digital block was then performed using some 0.5% plain ropivacaine for postop pain control and a sterile dressing was applied. The patient appears to have tolerated the procedure well and with no complications. All digits were well vascularized conclusion of the case.
[2023-02-05] MEDS: 0.9 % Sodium Chloride Flush 3 ML SYRINGE IVFLUSH ×3 (09:44→21:48)
[2023-02-05] MEDS: Cholecalciferol (Vitamin D3) 25 MCG TABLET 50 MCG PO (09:44)
[2023-02-05] MEDS: Atorvastatin Calcium 20 MG TABLET PO (09:44)
[2023-02-05] MEDS: amLODIPine Besylate 10 MG TABLET PO (09:44)
--- NOTE | 2023-02-05 14:45 | P.PNIM_ITS ---
Subjective Subjective Date of Service: 02/05/23 Interval History: Right thumb pain and swelling, CHEKO Review of Systems still has thumb swellin/erythema seems similar to yesterday rom-fist makin improvin no fevers Physical Exam Vital Signs: Vital Signs: Last Vital Signs Temp 97.1 F 02/05/23 10:11 Pulse 67 02/05/23 10:11 Resp 16 02/05/23 10:11 BP 176/81 H 02/05/23 10:11 Pulse Ox 93 02/05/23 10:11 O2 Del Method 02/05/23 10:11 BMI result Body Mass Index 25.9 Appearance: Alert.? Oriented X3.? not in distress.? cvs: rrr, [id number] , no murmur res: clear to auscultation ,no rhonchii or wheezing abd: no rebound or guarding ,nt, bs present. ext pulses present , no cyanosis ,right thumb-swellin/erythema ,also arm swellin . neuro: axo3 , nonfocal. Objective Data Active Medications Acetaminophen (Acetaminophen 325 Mg Tablet) 650 mg PO Q6H PRN PRN Reason: Pain, Mild (Pain Scale 1-3) Last Admin: 02/04/23 04:02 Dose: 650 mg Documented By: MADDIE Albuterol Sulfate (Albuterol Sulfate (0.083%) 2.5 Mg/3 Ml Vial.Neb) 2.5 mg INHALE ONCE PRN PRN Reason: Wheezing Amlodipine Besylate (Amlodipine Besylate 10 Mg Tablet) 10 mg PO DAILY [facility]; Protocol Last Admin: 02/05/23 09:44 Dose: 10 mg Documented By: RDO Atorvastatin Calcium (Atorvastatin Calcium 20 Mg Tablet) 20 mg PO DAILY [facility] Last Admin: 02/05/23 09:44 Dose: 20 mg Documented By: DABDenilson Enoxaparin Sodium (Enoxaparin Sodium 40 Mg/0.4 Ml Syringe) 40 mg SUBCUT Q24H [facility] Last Admin: 02/04/23 17:35 Dose: 40 mg Documented By: JESUS Fentanyl (Fentanyl Citrate/Pf 100 Mcg/2 Ml Vial) 25 mcg IVPUSH Q5M PRN; Protocol PRN Reason: Pain, Moderate (Pain Scale 4-6 Clindamycin Phosphate (Cleocin) 600 mg in 50 mls @ 100 mls/hr IV Q8H [facility] Last Infusion: 02/05/23 11:42 Dose: 0 mls/hr Documented By: ROD Vancomycin HCl 750 mg/ Sodium (Chloride) 265 mls @ 265 mls/hr IV Q12H [facility] Last Infusion: 02/05/23 05:06 Dose: 0 mls/hr Documented By: JOSEFINAQC Piperacillin Sod/Tazobactam (Sod 3.375 gm/ Sodium Chloride) 50 mls @ 100 mls/hr IV Q6H [facility] Last Infusion: 02/05/23 10:16 Dose: 0 mls/hr Documented By: ROD Melatonin (Melatonin 3 Mg Tablet) 6 mg PO BEDTIME PRN PRN Reason: Insomnia Morphine Sulfate (Morphine Sulfate 4 Mg/Ml Cartridge) 2 mg IVPUSH Q4H PRN; Protocol PRN Reason: Pain, Severe (Pain Scale 7-10) Ondansetron HCl (Ondansetron Hcl 4 Mg/2 Ml Vial) 4 mg IVPUSH Q8H PRN PRN Reason: Nausea and Vomiting Ondansetron HCl (Ondansetron Hcl 4 Mg/2 Ml Vial) 4 mg IVPUSH ONCE PRN PRN Reason: Nausea and Vomiting Oxycodone HCl (Oxycodone Hcl Immed Release 5 Mg Tablet) 5 mg PO Q6H PRN PRN Reason: Pain, Severe (Pain Scale 7-10) Oxycodone HCl (Oxycodone Hcl Immed Release 5 Mg Tablet) 5 mg PO ONCE PRN PRN Reason: Pain, Severe (Pain Scale 7-10) Pharmacy Consult (Consult Rx Perform Med Rec) 1 each MISCELLANE ONCE PRN PRN Reason: Consult order Pharmacy Consult (Consult Rx Vancomycin Dosing) 1 each MISCELLANE DAILY PRN PRN Reason: Consult order Sodium Chloride (0.9 % Sodium Chloride Flush 3 Ml Syringe) 3 ml IVFLUSH QSHIFT [facility] Last Admin: 02/05/23 09:44 Dose: 3 ml Documented By: ROD Vitamin D (Cholecalciferol (Vitamin D3) 25 Mcg Tablet) 50 mcg PO DAILY [facility] Last Admin: 02/05/23 09:44 Dose: 50 mcg Documented By: ROD Labs 02/03/23 05:17 02/05/23 05:20 Labs: Laboratory Results - last 24 hr 02/05/23 05:20 Estim Creat Clear Calc 66.3 Estimated GFR > 60 Microbiology Microbiology Results: Microbiology 02/02/23 17:17 Blood Culture - Preliminary Blood - Venous No growth after 48 hours. 02/02/23 16:16 Blood Culture - Preliminary Blood - Venous No growth after 48 hours. Assessment and Plan (1) CHEKO (acute kidney injury): Status: Acute (2) Cellulitis of right thumb: Status: Acute Plan 67 year old male with diabetes and other chronic medical issues as listed above here? with right hand cellulitis with lymphagetic spread to arm --see pictures 1.Sepsis d/t? Cellulitis of the right hand with lymphagetic spread, concern for streptococcus involvment, elevated crp and esr wbc improving , no fevers,follow blood culture vanco trough 11.5 yesterday, next vanco trough pending surgery eval noted-s/p Right thumb I and D-cultures sent ID consult-continue vanco and zosyn. 2/CHEKO-seems improved , dc ivf. 3/ HTN--continue Norvasc. 4/ HLD--statin 5/ Diabetes--no diabetes meds, add SSI 6/Hyperbilirubinenmia--This is chronic and NOT due to sepsis DVT prophylaixis: lovenox need for inpatitnet: Sepsis, cellulitis rapidly spreading and need IV Abx. Vanco and renal function electrolyte monitoring. Id Time Spent With Patient Time: Total time managing care of this patient today ____ minutes. Quality Stroke Does the patient have a stroke diagnosis?: No VTE Prior VTE?: No VTE Risk Level:: Medical - moderate - high VTE Device Contraindication: Treatment Not Indicated VTE Drug Contraindication: N/A - Med Ordered
[2023-02-05 14:57] LABS: Vancomycin Trough 11.1 mcg/mL (10.0-20.0)
--- NOTE | 2023-02-05 15:08 | HE.PHANOTE ---
RE: Vanco dosing Changed dose to 1000 mg q12 due to level still coming back at 11.1 after 5 doses. With increase expect to see AUC of 417 after first dose of 1000 mg but AUC was not expected to rise above 400 with 750 q12 dosing using [facility]. Will continue monitoring SCr and new random will be drawn 02/06 at 1300.
[2023-02-05] MEDS: vancomycin HCL 1,000 MG in 0.9 % Sodium Chloride 250 ML 270 MG IV (15:32)
[2023-02-05] MEDS: Enoxaparin Sodium 40 MG/0.4 ML SYRINGE SUBCUT (18:02)
[2023-02-06] VITALS (7 sets, daily range): BP systolic 144–174; BP diastolic 60–83; PULSE 69–78; RESP 16–18; TEMP 35.9–36.9; O2SAT 93–99
[2023-02-06] MEDS: Clindamycin Phosphate/D5W 600 MG/50 ML PIGGYBACK 100 MG IV ×2 (02:27→11:31)
[2023-02-06] MEDS: vancomycin HCL 1,000 MG in 0.9 % Sodium Chloride 250 ML 270 MG IV (03:00)
[2023-02-06] MEDS: Piperacillin Sodium/Tazobactam 3.375 GM in 0.9 % Sodium Chloride 50 ML IV ×4 (04:03→21:50)
[2023-02-06 06:41] LABS: Creatinine Clr Calc Pharmacy 60.6; Estimated Glomerular Filt Rate > 60
[2023-02-06] MEDS: Cholecalciferol (Vitamin D3) 25 MCG TABLET 50 MCG PO (07:44)
[2023-02-06] MEDS: 0.9 % Sodium Chloride Flush 3 ML SYRINGE IVFLUSH ×3 (07:45→21:50)
[2023-02-06] MEDS: Atorvastatin Calcium 20 MG TABLET PO (07:45)
[2023-02-06] MEDS: amLODIPine Besylate 10 MG TABLET PO (07:45)
--- NOTE | 2023-02-06 09:50 | HO.POSTANES ---
Post Anesthesia Evaluation Post Anesthesia Evaluation Vital Signs: Vital Signs Temp Pulse Resp BP Pulse Ox O2 Del Method 02/06/23 07:32 Room Air 02/06/23 08:00 97.9 F 73 18 174/79 H 98 Room Air 02/06/23 07:32 97.9 F 73 18 174/79 H 98 Room Air 02/06/23 03:39 97.8 F 75 18 144/78 H 94 Room Air 02/05/23 23:40 97.6 F 79 18 159/70 H 94 Room Air Anesthesia: General Mental Status: Awake Pain Control: Satisfactory Nausea/Vomiting: None Hydration: Adequate Anesthesia-Related Issues: No Anes. Related Issues
--- NOTE | 2023-02-06 12:39 | PM.PNORT ---
Subjective Subjective Date of Service: 02/06/23 Interval history: POD 1 s/p I&D right thumb no overnight events no pain, no new concerns Physical Exam Vital Signs: Vital Signs: Last Vital Signs Temp 97.9 F 02/06/23 08:00 Pulse 73 02/06/23 08:00 Resp 18 02/06/23 08:00 BP 174/79 H 02/06/23 08:00 Pulse Ox 98 02/06/23 08:00 O2 Del Method 02/06/23 08:00 Oxygen Flow Rate 96 02/06/23 07:32 BMI result Body Mass Index 25.9 Const: General: cooperative, healthy appearing and no acute distress Resp: Effort & Inspection: normal respiratory effort and able to speak in complete sentences Cardio: Rate: regular rate Peripheral pulses: Peripheral pulses 2+ throughout GI: Palpation (GI): Soft to palpation Skin: General skin exam: no rashes or lesions noted Extrem: Other: Right thumb normal to inspection, no drainage, skin is clean and intact Procedures Date of Service Date of Service: 02/06/23 Progress Note: A&P Assessment and plan (1) Cellulitis of right thumb: Status: Acute Plan Procedure Result Verified Site Gram stain Final 02/05/23-145 Gram stain results: 1+ polys 2+ epithelial cells No organisms seen RIGHT DORSAL THUMB PER SWAB Routine Culture Preliminary 02/06/23-1106 No growth to date. Continue dry dressing changes as needed follow up in 1 week with Ortho for wound check and suture removal. Time Spent With Patient Time: Total time managing care of this patient today ____ minutes. Quality Stroke Does the patient have a stroke diagnosis?: No VTE Prior VTE?: No VTE Risk Level:: Medical - moderate - high VTE Device Contraindication: Treatment Not Indicated VTE Drug Contraindication: N/A - Med Ordered
[2023-02-06 13:11] LABS: Vancomycin Random 15.1 mcg/mL (15-20)
--- NOTE | 2023-02-06 13:35 | HO.PM.IMPN ---
Subjective Subjective Date of Service: 02/06/23 Interval History: Right thumb pain and swelling, CHEKO Review of Systems still has thumb swellin/erythema seems similar to yesterday rom-fist makin improvin no fevers Physical Exam Vital Signs: Vital Signs: Last Vital Signs Temp 97.9 F 02/06/23 08:00 Pulse 73 02/06/23 08:00 Resp 18 02/06/23 08:00 BP 174/79 H 02/06/23 08:00 Pulse Ox 98 02/06/23 08:00 O2 Del Method 02/06/23 08:00 Oxygen Flow Rate 96 02/06/23 07:32 BMI result Body Mass Index 25.9 Appearance: Alert.? Oriented X3.? not in distress.? cvs: rrr, [id number] , no murmur res: clear to auscultation ,no rhonchii or wheezing abd: no rebound or guarding ,nt, bs present. ext pulses present , no cyanosis ,right thumb-swellin/erythema ,also arm swellin. neuro: axo3 , nonfocal. Objective Data Active Medications Acetaminophen (Acetaminophen 325 Mg Tablet) 650 mg PO Q6H PRN PRN Reason: Pain, Mild (Pain Scale 1-3) Last Admin: 02/04/23 04:02 Dose: 650 mg Documented By: MADDIE Albuterol Sulfate (Albuterol Sulfate (0.083%) 2.5 Mg/3 Ml Vial.Neb) 2.5 mg INHALE ONCE PRN PRN Reason: Wheezing Amlodipine Besylate (Amlodipine Besylate 10 Mg Tablet) 10 mg PO DAILY [facility]; Protocol Last Admin: 02/06/23 07:45 Dose: 10 mg Documented By: OLYA Atorvastatin Calcium (Atorvastatin Calcium 20 Mg Tablet) 20 mg PO DAILY [facility] Last Admin: 02/06/23 07:45 Dose: 20 mg Documented By: OLYA Enoxaparin Sodium (Enoxaparin Sodium 40 Mg/0.4 Ml Syringe) 40 mg SUBCUT Q24H [facility] Last Admin: 02/05/23 18:02 Dose: 40 mg Documented By: ROD Piperacillin Sod/Tazobactam (Sod 3.375 gm/ Sodium Chloride) 50 mls @ 100 mls/hr IV Q6H [facility] Last Infusion: 02/06/23 10:30 Dose: 0 mls/hr Documented By: OLYA Melatonin (Melatonin 3 Mg Tablet) 6 mg PO BEDTIME PRN PRN Reason: Insomnia Morphine Sulfate (Morphine Sulfate 4 Mg/Ml Cartridge) 2 mg IVPUSH Q4H PRN; Protocol PRN Reason: Pain, Severe (Pain Scale 7-10) Ondansetron HCl (Ondansetron Hcl 4 Mg/2 Ml Vial) 4 mg IVPUSH Q8H PRN PRN Reason: Nausea and Vomiting Ondansetron HCl (Ondansetron Hcl 4 Mg/2 Ml Vial) 4 mg IVPUSH ONCE PRN PRN Reason: Nausea and Vomiting Oxycodone HCl (Oxycodone Hcl Immed Release 5 Mg Tablet) 5 mg PO Q6H PRN PRN Reason: Pain, Severe (Pain Scale 7-10) Oxycodone HCl (Oxycodone Hcl Immed Release 5 Mg Tablet) 5 mg PO ONCE PRN PRN Reason: Pain, Severe (Pain Scale 7-10) Pharmacy Consult (Consult Rx Perform Med Rec) 1 each MISCELLANE ONCE PRN PRN Reason: Consult order Pharmacy Consult (Consult Rx Vancomycin Dosing) 1 each MISCELLANE DAILY PRN PRN Reason: Consult order Sodium Chloride (0.9 % Sodium Chloride Flush 3 Ml Syringe) 3 ml IVFLUSH QSHIFT [facility] Last Admin: 02/06/23 07:45 Dose: 3 ml Documented By: OLYA Vitamin D (Cholecalciferol (Vitamin D3) 25 Mcg Tablet) 50 mcg PO DAILY [facility] Last Admin: 02/06/23 07:44 Dose: 50 mcg Documented By: OLYA Labs 02/03/23 05:17 02/06/23 05:42 Labs: Laboratory Results - last 24 hr 02/05/23 02/06/23 02/06/23 12:47 05:42 12:39 Estim Creat Clear Calc 60.6 Estimated GFR > 60 Vancomycin Trough 11.1 Random Vancomycin 15.1 Microbiology Microbiology Results: Microbiology 02/05/23 08:30 Gram Stain - Final Thumb Right - Abscess Routine Culture - Preliminary No growth to date. 02/05/23 08:29 Gram Stain - Final Thumb Right - Abscess Routine Culture - Preliminary No growth to date. Assessment and Plan (1) CHEKO (acute kidney injury): Status: Acute (2) Cellulitis of right thumb: Status: Acute Plan 67 year old male with diabetes and other chronic medical issues as listed above here? with right hand cellulitis with lymphagetic spread to arm --see pictures 1.Sepsis d/t? Cellulitis of the right hand with lymphangetic spread, concern for streptococcus involvment, elevated crp and esr wbc improving , no fevers,follow blood culture neg@48hrs wound cultures -prelimnary pending vanco trough 11.5 yesterday, next vanco trough pending surgery eval noted-s/p Right thumb I and D-cultures sent ID consult-continue vanco and zosyn. 2/CHEKO-seems improved , dc ivf. 3/ HTN--continue Norvasc. 4/ HLD--statin 5/ Diabetes--no diabetes meds, add SSI 6/Hyperbilirubinenmia--This is chronic and NOT due to sepsis DVT prophylaixis: lovenox need for inpatitnet: Sepsis, cellulitis rapidly spreading and need IV Abx. Vanco and renal function electrolyte monitoring. Time Spent With Patient Time: Total time managing care of this patient today ____ minutes. Quality Stroke Does the patient have a stroke diagnosis?: No VTE Prior VTE?: No VTE Risk Level:: Medical - moderate - high VTE Device Contraindication: Treatment Not Indicated VTE Drug Contraindication: N/A - Med Ordered
--- NOTE | 2023-02-06 15:00 | MHC.CM.PN ---
per rounds pt to be dcd home with no servceis possible over the weekend
[2023-02-06] MEDS: Acetaminophen 325 MG TABLET 650 MG PO (16:16)
[2023-02-06] MEDS: Enoxaparin Sodium 40 MG/0.4 ML SYRINGE SUBCUT (17:15)
[2023-02-07] MEDS: Piperacillin Sodium/Tazobactam 3.375 GM in 0.9 % Sodium Chloride 50 ML IV (03:23)
[2023-02-07 03:48] VITALS: PULSE 70; RESP 16; TEMP 35.6; O2SAT 99
[2023-02-07 04:30] VITALS: BP 146/78
[2023-02-07 06:51] LABS: Creatinine Clr Calc Pharmacy 68.9; Estimated Glomerular Filt Rate > 60
[2023-02-07 07:00] VITALS: BP 186/84; PULSE 85; RESP 16; TEMP 36.9; O2SAT 95
[2023-02-07] MEDS: Amoxicillin/Potassium Clav 875 MG TABLET PO (07:48)
[2023-02-07] MEDS: Atorvastatin Calcium 20 MG TABLET PO (07:49)
[2023-02-07] MEDS: amLODIPine Besylate 10 MG TABLET PO (07:49)
[2023-02-07] MEDS: Cholecalciferol (Vitamin D3) 25 MCG TABLET 50 MCG PO (07:49)
[2023-02-07] MEDS: 0.9 % Sodium Chloride Flush 3 ML SYRINGE IVFLUSH (07:49)
--- NOTE | 2023-02-07 09:05 | PM.DS ---
DS: Providers Provider Date of Service: 02/07/23 Date of admission: 02/02/23 17:50 Date of discharge: 02/07/23 Primary care physician: Robbie Bruner DO Consults: 02/02/23 18:13 Consult to Infectious Diseases Routine Consulting Provider: [facility] [place] [facility] Reason for consultation: Cellulitis with lymphagetic spread Has provider been notified: No 02/03/23 10:38 Consult to Orthopedics Routine Consulting Provider: Sofi Stout Reason for consultation: splinter injury right thumb-?abcess Has provider been notified: No DS: Diagnosis Discharge Diagnosis (1) CHEKO (acute kidney injury): Status: Acute (2) Cellulitis of right thumb: Status: Acute DS: Summary Hospital Course Hospital Course: 67 year old male with diabetes and other chronic medical issues as listed below who presents with pain, swelling and blisters in thr right thumb. He think he may have injured himself with splinter last week and has had no problem with the hand, in fact, he was seen in the ED yesterday with uncontrolled blood? and had no issues with the hand. His started noticing the redness, swelling and pain last in the right thumb and has since spread to the arm. See picture below. He has no fever or chills. Xray no osteo or foreing body. WBC is 24, tachy, normal lactic a, ESR 42 and CRP 28. Hospital course:67 year old male with diabetes and other chronic medical issues as listed above here? with right hand cellulitis with lymphagetic spread to arm --see pictures h&p. admitted for Sepsis due to Cellulitis of the right hand with lymphangetic spread, concern for streptococcus involvment, elevated crp and esr: Patient was started on IV antibiotics, blood cultures sent:hand xray negative for osteomyelitis,Subsequently patient leukocytosis improving, blood culture negative at 48 hour, seen by surgery had I&D done-patient cellulitis is improved significantly, patient will be going home with p.o. antibiotics. In addition dressing change and surgical instructions please see discharge instruction. CHEKO- probably related to dehydration , given ivf and improved. Monitor BMP out patiently. Mild Hyperbilirubinenmia--This is chronic and NOT due to sepsis, monitor LFTs outpatient with PCP. plan: Complete antibiotic course, follow-up with orthopedics for removal of sutures outpatient in 1 week. Follow BMP and LFTs outpatient with PCP. Further management outpatient as per PCP. Above management discussed with patient detail length he understand and in agreement with the plan, time spent 50 minute. Time Spent with Patient Time attestation: Total time managing care of this patient today ____ minutes. Discharge coordination time: Greater than 30 minutes Quality: Safe Use of Opioids Does Pt have an Active Cancer Diagnosis on the Problem List?: No Quality: Stroke Does the patient have a stroke diagnosis?: No Physical Exam Vital Signs: Vital Signs: Last Vital Signs Temp 98.4 F 02/07/23 07:00 Pulse 85 02/07/23 07:00 Resp 16 02/07/23 07:00 BP 186/84 H 02/07/23 07:00 Pulse Ox 95 02/07/23 07:00 O2 Del Method 02/07/23 07:00 Oxygen Flow Rate 96 02/06/23 07:32 BMI result Body Mass Index 25.9 Appearance: Alert.? Oriented X3.? not in distress.? cvs: rrr, [id number] , no murmur res: clear to auscultation ,no rhonchii or wheezing abd: no rebound or guarding ,nt, bs present. ext pulses present , no cyanosis ,right thumb-wappred -no surrounding edema or eythema,arm swelling also improved. neuro: axo3 , nonfocal. DS: Data Data Completed and Pending Labs on day of discharge: Laboratory Results - last 24 hr 02/06/23 02/07/23 12:39 06:01 Creatinine 1.02 Estim Creat Clear Calc 68.9 Estimated GFR > 60 Random Vancomycin 15.1 Preliminary micro results at discharge 02/05/23 08:30 Routine Culture - Preliminary Thumb Right - Abscess No growth to date. 02/05/23 08:29 Routine Culture - Preliminary Thumb Right - Abscess No growth to date. 02/02/23 17:17 Blood Culture - Preliminary Blood - Venous No growth after 48 hours. 02/02/23 16:16 Blood Culture - Preliminary Blood - Venous No growth after 48 hours. Imaging Chest x-ray: Radiologist's impression: ITS Impressions Hand X-Ray 02/02/23 16:44 IMPRESSION: No acute abnormality. No radiographic evidence for osteomyelitis. Discharge Plan Discharge Anticipated Discharge Date/Time: 02/07/23 09:01 Patient Disposition: Home, Self-Care Discharge Diagnosis: Cellulitis of thumb. Referrals: Robbie Bruner DO [Primary Care Provider] - 1 Week Neha Quintero PA-C [Physician Animal Care Service Worker] - 1 Week (February 12 at 3pm ) Discharge Medications: New amoxicillin-pot clavulanate 875-125 mg Tablet 875 mg PO BID Qty: 14 0RF Continued amlodipine [Norvasc] 5 mg tablet 5 mg PO DAILY Qty: 10 0RF cholecalciferol (vitamin D3) 50 mcg (2,000 unit) Tablet 50 mcg PO DAILY atorvastatin 40 mg tablet 20 mg PO BEDTIME Held amoxicillin Hold Instructions: Resume on 02/13/23. until finshes current antibiotics Discharge Orders: Discharge Order (Routine); Ordered 02/07/23 Ordered By: Adam Lin Diet: Advance to usual diet Activity on Discharge: As tolerated Stand Alone Forms: Patient Portal Discharge page Activity Restrictions/Additional Instructions: Keep dressing clean dry and intact No heavy lifting Change dressing daily if needed. Care Plan Goals: Patient was admitted for right hand/thumb infection after having injury to her thumb: Started on IV antibiotics, blood cultures sent, seen by Orthopedic surgery: Had incision and drainage done for the right hand thumb area, patient subsequently improved significantly and going home with p.o. antibiotics. Dressing change as per surgery and instructions are as above. In addition patient renal failure mild which improved with hydration, also has mild elevated in liver function seems chronic. Follow BMP and LFTs outpatient with PCP. Further management outpatient as per PCP. Patient also needs to follow-up with surgery for suture removal. Health Concerns: As above. Plan of Treatment: As above. Assessment: As above.
--- NOTE | 2023-02-07 09:24 | MHC.CM.PN ---
PATIENT IS DC HOME - SELF CARE RN AWARE OF PLAN
== END 2023-02-07 11:54 | disposition home or self-care (01) | DRG 710 ==
LOC: HO.ED 18:06 → HO.EDOVER 18:44 → HO.S3 18:58
PROVIDERS: Nurse Practitioner Family; Orthopaedic Surgery; Admitting Provider Internal Medicine; Emergency Provider Emergency Medicine; PCP Internal Medicine; Visit Provider Internal Medicine
PROC: 0J9J0ZZ Drainage of Right Hand Subcutaneous Tissue and Fascia, Open Approach (ICD-10-PCS; principal; 2023-02-05 07:30)
DX: A41.9 Sepsis, unspecified organism (principal); N17.9 Acute kidney failure, unspecified; E11.9 Type 2 diabetes mellitus without complications; E78.2 Mixed hyperlipidemia; L03.011 Cellulitis of right finger; E86.0 Dehydration; J43.9 Emphysema, unspecified; Z20.822 Contact with and (suspected) exposure to COVID-19; Z87.891 Personal history of nicotine dependence; Z79.899 Other long term (current) drug therapy
CPT/HCPCS: 36415; 73130; 80048; 80076; 80202; 82565; 83605; 85007; 85027; 85652; 86140; 87040; 87070; 87205; 87635; 96361; 96374; 99285; J1100; J1650; J1885; J2370; J2405; J2543; J2795; J3010; J3370

== ENCOUNTER 2023-02-11 06:44 | Outpatient (REF) | payer OTHER, SELFPAY ==
[2023-02-11 08:32] LABS: Alanine Aminotransferase 36 U/L (0-40); Alkaline Phosphatase 101 U/L (39-117); Anion Gap 16 (12-20); Aspartate Amino Transferase 23 U/L (5-37); Bilirubin Total 1.3 mg/dL (0.0-1.0); Blood Urea Nitrogen 22 mg/dL (9-16); Calcium 9.6 mg/dL (8.4-10.2); Carbon Dioxide 27 mmol/L (22-29); Chloride 101 mmol/L (96-108); Estimated Glomerular Filt Rate > 60; Glucose Random 194 mg/dL (60-115); Potassium 4.6 mmol/L (3.3-5.1); Sodium 139 mmol/L (135-145); Total Protein 8.4 g/dL (6.5-8.0)
[2023-02-11 08:52] LABS: Creatinine Urine 165.35 mg/dL
[2023-02-12 13:13] LABS: Calcium (PTHI) 9.8 mg/dL (8.6-10.3); PTHI 50 pg/mL (16-77)
== END 2023-02-11 06:45 | disposition home or self-care (01) ==
LOC: HO.LAB 06:44
PROVIDERS: PCP Internal Medicine; Visit Provider Internal Medicine
DX: Z00.00 Encounter for general adult medical examination without abnormal findings (principal); E11.9 Type 2 diabetes mellitus without complications; I10 Essential (primary) hypertension
CPT/HCPCS: 36415; 80053; 82043; 83970

== ENCOUNTER → 2023-02-12 14:54 | Outpatient (BNVA) | payer OTHER, SELFPAY | PROVIDERS: PCP Internal Medicine; Visit Provider Physician Assistant | DX: Z13.89 Encounter for screening for other disorder (principal) ==

== ENCOUNTER → 2023-02-19 13:51 | Outpatient (BNVA) | payer OTHER, SELFPAY | PROVIDERS: PCP Internal Medicine; Visit Provider Physician Assistant | DX: Z13.89 Encounter for screening for other disorder (principal) ==

== ENCOUNTER 2023-04-29 21:57 | Emergency (ER) | payer OTHER, SELFPAY ==
[2023-04-29 22:05] VITALS: BP 163/76; PULSE 76; RESP 18; TEMP 36.4; O2SAT 98; BMI 25.8
== END 2023-04-30 01:06 | disposition left against medical advice (07) ==
LOC: HO.ED 04-30 00:55
PROVIDERS: Emergency Provider Emergency Medicine; PCP Internal Medicine
DX: M79.641 Pain in right hand (principal)
CPT/HCPCS: 99281

== ENCOUNTER 2023-05-05 06:45 | Outpatient (REF) | payer OTHER, SELFPAY ==
[2023-05-05 07:00] LABS: MANUAL DIFF FLAG NO
[2023-05-05 07:40] LABS: Basophils Absolute Auto 0.1 X10*3/uL (0.0-0.2); Basophils Percent Auto 1.4 % (0-2); Eosinophils Absolute Auto 0.3 X10*3/uL (0.0-0.4); Eosinophils Percent Auto 5.9 % (0-4); Hematocrit 46.5 % (42.0-52.0); Hemoglobin 16.2 g/dl (14.0-18.0); Imm Gran Abs Auto 0.02 X10*3/uL (0.00-0.03); Imm Gran Pct Auto 0.4 % (0.0-0.4); Lymphocytes Absolute Auto 1.3 X10*3/uL (1.2-4.9); Mean Corpuscular HGB Conc 34.8 g/dl (31.0-36.0); Mean Corpuscular Hemoglobin 30.8 pg (27.0-33.0); Mean Corpuscular Volume 88.4 fL (80.0-98.0); Mean Platelet Volume 11.1 fL (9.4-12.4); Monocytes Absolute Auto 0.7 X10*3/uL (0.1-1.2); Monocytes Percent Auto 13.6 % (2-11); Neutrophils Absolute Auto 2.7 x10*3/uL (2.0-8.3); Neutrophils Percent Auto 53.7 % (45-73); Platelet Count 169 X10*3/uL (160-400); Red Blood Count 5.26 X10*6/uL (4.60-5.80); Red Cell Distribution Width 12.6 % (11.0-16.0); White Blood Count 5.1 X10*3/uL (4.8-10.8)
[2023-05-05 07:59] LABS: Estimated Average Glucose 117 mg/dL; Hemoglobin A1c % 5.7 %
[2023-05-05 08:11] LABS: Alanine Aminotransferase 40 U/L (0-40); Albumin Level 4.2 g/dL (3.5-5.0); Alkaline Phosphatase 84 U/L (39-117); Anion Gap 13 (12-20); Aspartate Amino Transferase 34 U/L (5-37); Bilirubin Total 1.7 mg/dL (0.0-1.0); Blood Urea Nitrogen 15 mg/dL (9-16); C Reactive Protein 0.29 mg/dL (< or = 0.50); Calcium 10.1 mg/dL (8.4-10.2); Carbon Dioxide 27 mmol/L (22-29); Chloride 105 mmol/L (96-108); Cholesterol 114 mg/dL; Estimated Glomerular Filt Rate > 60; Glucose Fasting 133 mg/dL (60-99); HDL Cholesterol 38 mg/dL; LDL Cholesterol Calculated 61 mg/dl; Potassium 4.5 mmol/L (3.3-5.1); Sodium 140 mmol/L (135-145); Total Protein 7.3 g/dL (6.5-8.0); Triglycerides 76 mg/dL
[2023-05-05 08:59] LABS: Creatinine Urine 165.02 mg/dL
== END 2023-05-05 06:46 | disposition home or self-care (01) ==
LOC: HO.LAB 06:45
PROVIDERS: PCP Internal Medicine; Visit Provider Internal Medicine
DX: I10 Essential (primary) hypertension (principal); E11.9 Type 2 diabetes mellitus without complications
CPT/HCPCS: 36415; 80053; 80061; 82043; 83036; 85025; 86140

== ENCOUNTER 2023-07-01 09:07 | Outpatient (REF) | payer OTHER, SELFPAY ==
[2023-07-01 10:09] LABS: Appearance Urine Clear; Color Urine Yellow; Glucose Urine UA Negative (Negative); Leukocyte Esterase Urine Small (1+) (Negative); Nitrite Urine Negative (Negative); UMIC TRIGGER UA YES; Urine Blood Large (3+) (Negative); Urine Ketones Negative (Negative); Urine Protein 100 (2+) mg/dL (Neg-Trace)
[2023-07-01 10:16] LABS: Bacteria Urine None Seen (None Seen); Hyaline Casts Urine 0-2 /LPF (0-2); RBC Urine >20 /HPF (0-2); Squamous Epithelial Cell Urine 0-2 /HPF (0-2); WBC Urine 21-50 /HPF (0-5)
[2023-07-01 11:07] LABS: Alanine Aminotransferase 22 U/L (0-40); Alkaline Phosphatase 85 U/L (39-117); Anion Gap 14 (12-20); Aspartate Amino Transferase 20 U/L (5-37); Bilirubin Total 1.4 mg/dL (0.0-1.0); Blood Urea Nitrogen 15 mg/dL (9-16); Calcium 9.8 mg/dL (8.4-10.2); Carbon Dioxide 26 mmol/L (22-29); Chloride 105 mmol/L (96-108); Estimated Glomerular Filt Rate > 60; Glucose Random 166 mg/dL (60-115); Potassium 4.4 mmol/L (3.3-5.1); Sodium 141 mmol/L (135-145); Total Protein 7.6 g/dL (6.5-8.0)
[2023-07-01 11:21] LABS: Creatinine Urine 113.23 mg/dL; Microalbum/Creatinine Ratio Ur 224.3 ug/mg cr
== END 2023-07-01 09:08 | disposition home or self-care (01) ==
LOC: HO.LAB 09:07
PROVIDERS: PCP Internal Medicine; Visit Provider Internal Medicine
DX: E11.9 Type 2 diabetes mellitus without complications (principal); I10 Essential (primary) hypertension
CPT/HCPCS: 36415; 80053; 81001; 82043

== ENCOUNTER 2023-07-13 06:42 | Outpatient (REF) | payer OTHER, SELFPAY ==
[2023-07-13 09:30] LABS: Urine Cytology See Pathology rpt
[2023-07-13 09:34] LABS: Appearance Urine Clear; Color Urine Yellow; Glucose Urine UA Negative (Negative); Leukocyte Esterase Urine Small (1+) (Negative); Nitrite Urine Negative (Negative); PH 5.5 (5.0-9.0); UMIC TRIGGER UA YES; Urine Blood Large (3+) (Negative); Urine Ketones Negative (Negative); Urine Protein 100 (2+) mg/dL (Neg-Trace)
[2023-07-13 09:37] LABS: Bacteria Urine None Seen (None Seen); Hyaline Casts Urine 0-2 /LPF (0-2); RBC Urine >20 /HPF (0-2); Squamous Epithelial Cell Urine 0-2 /HPF (0-2); WBC Urine 21-50 /HPF (0-5)
[2023-07-13 09:42] LABS: Glucose Fasting 131 mg/dL (60-99)
[2023-07-13 11:27] LABS: Estimated Average Glucose 123 mg/dL; Hemoglobin A1c % 5.9 %
[2023-07-13 11:47] LABS: Creatinine Urine 149.68 mg/dL; Microalbum/Creatinine Ratio Ur 325.3 ug/mg cr
== END 2023-07-13 06:43 | disposition home or self-care (01) ==
LOC: HO.LAB 06:42
PROVIDERS: Visit Provider Internal Medicine
DX: I10 Essential (primary) hypertension (principal); E11.9 Type 2 diabetes mellitus without complications; M70.22 Olecranon bursitis, left elbow; R31.29 Other microscopic hematuria
CPT/HCPCS: 36415; 81001; 82043; 82947; 83036; 87086; 88112

== ENCOUNTER 2023-07-17 13:35 | Emergency (ER) | payer OTHER, SELFPAY ==
--- NOTE | ~2023-07-17 | CT_ITS ---
EXAMINATION: CT ABDOMEN AND PELVIS WITHOUT CONTRAST CLINICAL INFORMATION: Blood in urine, flank pain. COMPARISON: None. TECHNIQUE: Multidetector volumetric imaging was performed from the superior aspect of the liver through the pubic symphysis. Sagittal and coronal reformatted images were obtained on the technologist's workstation. Lack of intravenous and oral contrast limits visceral evaluation. This CT examination was performed using dose optimization techniques as appropriate, variously including the following: *Automated exposure control *Adjustment of mA and/or kV according to patient size (this includes techniques or standardized protocols for targeted exams where dose is matched to indication/reason for exam; i.e. extremities or head) *Use of iterative reconstruction technique DLP: 477 mGy-cm FINDINGS: LUNG BASES: The visualized lung bases are unremarkable. LIVER, GALLBLADDER, AND BILIARY TREE: No significant hepatic abnormality. Status post cholecystectomy. No significant biliary ductal dilatation. PANCREAS: Unremarkable. SPLEEN: Unremarkable. ADRENAL GLANDS: Unremarkable. KIDNEYS AND URETERS: Mild pelviectasis is seen bilaterally with narrowing at the ureteropelvic junctions bilaterally, left greater than right. Multiple nonobstructing intrarenal calculi/calcifications are seen bilaterally. The largest is seen in the right renal pelvis measuring 0.9 cm (image 61, series 7). The ureters are unremarkable. BLADDER: Mildly distended without focal abnormality. GASTROINTESTINAL TRACT: There is a very small hiatal hernia. The remainder the stomach is unremarkable. The small bowel and appendix are unremarkable. The colon and rectum are unremarkable. ABDOMINAL WALL: No significant hernia is appreciated. LYMPH NODES: No lymphadenopathy. VASCULAR: Mild to moderate atherosclerosis is seen. PELVIC VISCERA: Mild prostatomegaly. OSSEOUS STRUCTURES: Mild bilateral sacroiliac degenerative joint changes are seen. CT/CT abdomen pelvis wo IV con IMPRESSION: 1. Mild bilateral renal pelviectasis with narrowing at the ureteropelvic junctions bilaterally, left greater than right. Multiple nonobstructing intrarenal calculi/calcifications bilaterally. 2. Very small hiatal hernia. 3. Mild bilateral sacroiliac degenerative joint changes. 4. Mild prostamegaly.
[2023-07-17 13:45] VITALS: BP 175/68; PULSE 69; RESP 19; TEMP 36.6; O2SAT 98; BMI 26.9
--- NOTE | 2023-07-17 13:45 | ED.GENADULT ---
HPI - General Adult General Chief complaint: Urogenital-Male Stated complaint: blood in urine / back pain Time Seen by Provider: 07/17/23 17:00 Source: patient and family (patient's ) Mode of arrival: ambulatory Limitations: no limitations History of Present Illness HPI narrative: Patient is a 68 year old assigned male at with a history of DM presenting to the emergency department today with flank pain and blood in his urine. Patient states that over the last 2 days he has had intermittent right flank pain and blood in his urine. Patient denies any dizziness, lightheadedness, abdominal pain, nausea, vomiting, fever, chills, blurry vision, double vision, loss of vision, chest pain, difficulty breathing, shortness of breath, back pain, night sweats, pain with urination, increased urinary frequency, increased urinary urgency, blood in his stool, syncope or a near syncopal episode, recent trauma or falls, bowel incontinence, bladder incontinence, bowel retention, bladder retention, or any other complaints at this time. Onset (ago): day(s) (2) Location: right (flank) Severity: mild Severity scale (1-10): 3 Quality: aching and dull Pain Consistency: constant Relieving factors: none Exacerbating factors: none Associated symptoms: denies other symptoms Treatments prior to arrival: none Related Data Home Medications Medication Instructions Recorded Confirmed atorvastatin 40 mg tablet 20 mg PO BEDTIME 10/15/22 02/02/23 amoxicillin STREP THROAT 02/02/23 cholecalciferol (vitamin D3) 50 50 mcg PO DAILY 02/02/23 02/02/23 mcg (2,000 unit) tablet lisinopril 5 mg tablet 5 mg PO DAILY 02/19/23 Previous Rx's Medication Instructions Recorded amlodipine 5 mg tablet (Norvasc) 5 mg PO DAILY #10 tabs 02/01/23 amoxicillin 875 mg-potassium 875 mg PO BID #14 tabs 02/07/23 clavulanate 125 mg tablet Allergies Allergy/AdvReac Type Severity Reaction Status Date / Time No Known Allergies Allergy Verified 07/17/23 13:45 [No Known Allergies*] Review of Systems Constitutional: Constitutional: Reports no additional constitutional complaints, Denies chills, Denies fever(s) and Denies night sweats Eyes: Eyes: Reports no additional eye complaints, Denies blurry vision, Denies change in vision, Denies diplopia, Denies eye discharge, Denies loss of vision and Denies eye pain ENT: Denies dizziness Cardiovascular: Cardiovascular: Reports no additional cardiovascular complaints, Denies chest pain, Denies lightheadedness, Denies Loss of Consciousness and Denies dyspnea Respiratory: Respiratory: Reports no additional respiratory complaints and Denies dyspnea Gastrointestinal: Gastrointestinal: Reports no additional gastrointestinal complaints, Denies abdominal pain, Denies melena, Denies hematochezia, Denies change in bowel habits and Denies change in stool character Genitourinary: Genitourinary: Reports no additional male genitourinary complaints, Reports hematuria, Denies oliguria, Denies difficulty urinating, Denies dysuria, Reports flank pain (right), Denies urinary frequency, Denies urinary hesitancy, Denies urinary incontinence and Denies urinary urgency Musculoskeletal: Musculoskeletal: Reports no additional musculoskeletal complaints, Denies numbness and Denies tingling Neurologic: Denies dizziness, Denies loss of vision, Denies numbness and Denies tingling Psychiatric: Psychiatric: Reports no additional psychiatric complaints Endocrine: Endocrine: Reports no additional endocrine complaints Hematologic/Lymphatic: Hematologic/Lymphatic: Reports no additional hematologic/lymphatic complaints Allergic/Immunologic: Allergic/Immunologic: Reports no additional allergic/immunologic complaints [facility] Past Medical History Attestation statement: The following information was validated with the patient. (patient's validated the patient's information.) Source: old records reviewed, obtained from family (patient's provided additional history and confirmed the history provided by the patient.) and nursing notes reviewed Medical History (Updated 07/17/23 @ 19:44 by VÍCTOR Garza) CHEKO (acute kidney injury) Cellulitis of right thumb Diabetes mellitus type 2, diet-controlled (~2014) Emphysema lung High cholesterol Hypertension Personal history of nicotine dependence PONV (postoperative nausea and vomiting) Tubular adenoma of colon (~2018) Surgical History History of cataract surgery History of cholecystectomy History of colonoscopy History of nasal septoplasty Hx of bilateral cataract extraction S/P tendon repair Family History Family History Father Hypertension DM2 (diabetes mellitus, type 2) Mother DM2 (diabetes mellitus, type 2) Hypertension Hemochromatosis Brother DM2 (diabetes mellitus, type 2) Sister DM2 (diabetes mellitus, type 2) Social History Social History Household Members: Spouse Housing: House Do you presently have visiting nurse or other home services: No Alcohol intake: never Patient Tobacco Use Status: Former Tobacco user Quit Date: 2009 Tobacco use type: Cigarette Years Smoked: 25pyh, onset 25yo, 3/4-1ppd x 30yrs, quit 2009 Second Hand Smoke Exposure: No Advance Directives: No Advance Directives Information Provided: No service: No Physical Exam ED Vital Signs: Vital Signs - 24 hr 07/17/23 13:45 Temperature 98 F Pulse Rate 69 Respiratory Rate 19 Blood Pressure 175/68 H Pulse Oximetry 98 Oxygen Delivery Method Room Air BMI result Body Mass Index 26.9 Const General: cooperative, no acute distress, alert and awake Nutritional Appearance: well nourished Orientation/consciousness: patient oriented x3 Limitations: no limitations HENMT Head: Yes normal to inspection and Yes atraumatic Ears: hearing grossly normal bilaterally and external ears normal General nose exam: Normal external nose present, no nasal discharge noted and no epistaxis Face and sinus: Yes normal facial exam, No abrasion and No laceration Mouth: Normal oral and palatal mucosa present, no drooling and no muffled voice Eyes General: appearance normal, both eyes and all related structures Periorbital: periorbital findings normal Eyelids: Yes eyelids normal Conjunctivae: conjunctivae normal Pupils: Equal, round and reactive pupils present EOM: EOMs intact bilaterally Neck Neck: Yes normal visual inspection, Yes full ROM and Yes no lymphadenopathy Chest Chest palpation & inspection: normal inspection of the chest Resp Effort & Inspection: normal respiratory effort and able to speak in complete sentences GI Inspection: Yes normal to inspection Neuro General: patient oriented x3 and moves all extremities Cranial nerves: Yes Equal, round and reactive pupils present Cognition (Neuro): normal cognition Motor exam (neuro): 5/5 motor strength present throughout Sensory Exam: Normal double simultaneous stimulation for sensation Coordination: [id number] test normal Extrem General: Yes normal to inspection, Yes full ROM and Yes capillary refill normal Psych Appearance: grossly normal Mental Status: mental status grossly normal Affect: normal affect Attitude: cooperative Thought process: Normal thought process present Thought content: Normal thought content present Insight: Good insight present (Psych) Course Course Course Narrative: RME performed by Jessy Salazar PA-C. Patient is a 68 year old assigned male at presenting to the emergency department with blood in his urine and low back pain. Labs and imaging ordered. Patient placed back in the waiting room pending room availability and results. Medical Decision Making Medical Decision Making [facility] Narrative: Patient is a 68 year old assigned male at with a history of DM presenting to the emergency department today with flank pain and blood in his urine. Patient's physical exam was unremarkable. Patient's blood work was unremarkable. Patient's urine showed blood but was otherwise unremarkable. Patient's abdomen/pelvis CT showed mild bilateral renal pelviectasis with narrowing at the ureteropelvic junctions bilaterally, left greater than right with multiple nonobstructing intrarenal calculi/calcifications bilaterally. I explained my physical exam findings as well as all test results to the patient and the patient's . I answered all questions asked by the patient and the patient's . I stressed the importance of the patient taking his medication as prescribed. I stressed the importance of the patient following up with his primary care provider and a urologist. I stressed the importance of the patient returning to the emergency department immediately if his symptoms were to worsen or if he were to develop any dizziness, shortness of breath, difficulty breathing, chest pain, blurry vision, loss of vision, nausea, vomiting, abdominal pain, fever, chills, back pain, or any other complaints. Patient and the patient's verbalized agreement and understanding with this treatment plan and discharge. Differential Diagnosis Differential Diagnoses: The differential diagnosis associated with the presentation includes Renal calculi Hematuria Admission/Observation Consideration of admission/observation: Escalation of care including admission/observation considered Patient would have been admitted to the hospital had his work up had any findings where hospital admission was appropriate and his clinical presentation warranted hospital admission. Lab Data [facility] Lab Attestation statement: I reviewed the patient's lab results. My interpretation of these studies and their corresponding values is that they are grossly normal. 07/17/23 14:01 07/17/23 14:01 Labs: Lab Results 07/17/23 07/17/23 07/17/23 Range/Units 14:01 14:01 14:01 WBC 6.9 (4.8-10.8) X10*3/uL RBC 5.05 (4.60-5.80) X10*6/uL Hgb 15.9 (14.0-18.0) g/dl Hct 44.2 (42.0-52.0) % MCV 87.5 (80.0-98.0) fL MCH 31.5 (27.0-33.0) pg MCHC 36.0 (31.0-36.0) g/dl RDW 12.5 (11.0-16.0) % Plt Count 205 (160-400) X10*3/uL MPV 9.5 (9.4-12.4) fL Immature Gran % (Auto) 0.4 (0.0-0.4) % Neut % (Auto) 65.0 (45-73) % Lymph % (Auto) 22.4 (20-40) % [place] % (Auto) 8.3 (2-11) % Eos % (Auto) 2.9 (0-4) % Baso % (Auto) 1.0 (0-2) % Lymph # (Auto) 1.5 (1.2-4.9) X10*3/uL [place] # (Auto) 0.6 (0.1-1.2) X10*3/uL Eos # (Auto) 0.2 (0.0-0.4) X10*3/uL Baso # (Auto) 0.1 (0.0-0.2) X10*3/uL Abs Immat Gran (auto) 0.03 (0.00-0.03) X10*3/uL Absolute Neuts (auto) 4.5 (2.0-8.3) x10*3/uL Absolute Nucleated RBC 0.000 (0.0-0.012) X10*3/uL Nucleated RBC % (auto) 0.0 (0.0-0.2) /100WBC Sodium 142 (135-145) mmol/L Potassium 5.3 H D (3.3-5.1) mmol/L Chloride 109 H (96-108) mmol/L Carbon Dioxide 26 (22-29) mmol/L Anion Gap 12 (12-20) BUN 17 H (9-16) mg/dL Creatinine 1.39 (0.5-1.4) mg/dL Estim Creat Clear Calc 48.2 Estimated GFR 51 Random Glucose 110 (60-115) mg/dL Calcium 10.5 H D (8.4-10.2) mg/dL Magnesium 2.2 (1.6-2.6) mg/dL Total Bilirubin 1.5 H (0.0-1.0) mg/dL AST 23 (5-37) U/L ALT 26 (0-40) U/L Alkaline Phosphatase 81 (39-117) U/L Total Protein 7.8 (6.5-8.0) g/dL Albumin 4.3 (3.5-5.0) g/dL Urine Color BROWN Urine Appearance Turbid Urine pH 5.5 (5.0-9.0) Ur Specific [place] >= 1.030 H (1.005-1.025) Urine Protein 100 (2+) H (Neg-Trace) mg/dL Urine Glucose (UA) Negative (Negative) mg/dL Urine Ketones Trace (Negative) mg/dL Urine Blood Large (3+) H (Negative) Urine Nitrite Negative (Negative) Ur Leukocyte Esterase Negative (Negative) Urine RBC >20 H (0-2) /HPF Urine WBC 0-5 (0-5) /HPF Ur Squamous Epith Cells 0-2 (0-2) /HPF Urine Bacteria Trace (None Seen) Hyaline Casts 0-2 (0-2) /LPF Independent Interpretation I performed an independent interpretation of an: CT Scan Interpretation: My interpretation is in agreement with the radiologist's impression of this imaging study. EXAMINATION: CT ABDOMEN AND PELVIS WITHOUT CONTRAST? CLINICAL INFORMATION: Blood in urine, flank pain.? COMPARISON: None. TECHNIQUE: Multidetector volumetric imaging was performed from the superior aspect of the liver through the pubic symphysis. Sagittal and coronal reformatted images were obtained on the technologist's workstation. Lack of intravenous and oral contrast limits visceral evaluation. This CT examination was performed using dose optimization techniques as appropriate, variously including the following: *Automated exposure control *Adjustment of mA and/or kV according to patient size (this includes techniques or standardized protocols for targeted exams where dose is matched to indication/reason for exam; i.e. extremities or head) *Use of iterative reconstruction technique DLP: 477 mGy-cm FINDINGS: LUNG BASES: The visualized lung bases are unremarkable.? LIVER, GALLBLADDER, AND BILIARY TREE: No significant hepatic abnormality. Status post cholecystectomy. No significant biliary ductal dilatation. PANCREAS: Unremarkable.? SPLEEN: Unremarkable.? ADRENAL GLANDS: Unremarkable.? KIDNEYS AND URETERS: Mild pelviectasis is seen bilaterally with narrowing at the ureteropelvic junctions bilaterally, left greater than right. Multiple nonobstructing intrarenal calculi/calcifications are seen bilaterally. The largest is seen in the right renal pelvis measuring 0.9 cm (image 61, series 7). The ureters are unremarkable. BLADDER: Mildly distended without focal abnormality.? GASTROINTESTINAL TRACT: There is a very small hiatal hernia. The remainder the stomach is unremarkable. The small bowel and appendix are unremarkable. The colon and rectum are unremarkable.? ABDOMINAL WALL: No significant hernia is appreciated.? LYMPH NODES: No lymphadenopathy. VASCULAR: Mild to moderate atherosclerosis is seen. PELVIC VISCERA: Mild prostatomegaly.? OSSEOUS STRUCTURES: Mild bilateral sacroiliac degenerative joint changes are seen. CT/CT abdomen pelvis wo IV con IMPRESSION: 1.? Mild bilateral renal pelviectasis with narrowing at the ureteropelvic junctions bilaterally, left greater than right. Multiple nonobstructing intrarenal calculi/calcifications bilaterally. 2.? Very small hiatal hernia. 3.? Mild bilateral sacroiliac degenerative joint changes. 4.? Mild prostamegaly. Dictated By: Andres Gonzalez MD Signed By: Electronically signed by Andres Gonzalez MD 07/17/23 [id number] Radiology Impression Discussion of test interpretation with radiology: I have reviewed the radiologist's reading. Independent Historian Clinical information obtained from an independent historian. History obtained from or confirmed by: Spouse (patient's provided additional history and confirmed the history provided by the patient.) Chronic Conditions Patient?s care impacted by: Diabetes Discharge Plan Discharge Clinical Impression: Hematuria Patient Disposition: Home, Self-Care Instructions: Hematuria (ED) Additional Instructions: Follow up with your primary care provider and a urologist. Return to the emergency department immediately if your symptoms worsen or if you develop any dizziness, shortness of breath, difficulty breathing, chest pain, blurry vision, loss of vision, nausea, vomiting, abdominal pain, fever, chills, back pain, or any other complaints. Prescriptions: No Action amlodipine [Norvasc] 5 mg tablet 5 mg PO DAILY Qty: 10 0RF cholecalciferol (vitamin D3) 50 mcg (2,000 unit) Tablet 50 mcg PO DAILY amoxicillin Hold Instructions: Resume on 02/13/23. until finshes current antibiotics amoxicillin-pot clavulanate 875-125 mg Tablet 875 mg PO BID Qty: 14 0RF atorvastatin 40 mg tablet 20 mg PO BEDTIME lisinopril 5 mg tablet 5 mg PO DAILY Referrals: [facility] [Provider Group] (Call to establish and follow up with a urologist.) Robbie Bruner DO [Primary Care Provider] - Interventions: ED Discharge Assessment Last Done: 07/17/23 17:17 Discharge Date/Time: 07/17/23 17:18 Print Language: Kyrgyz
[2023-07-17 14:06] LABS: MANUAL DIFF FLAG NO
[2023-07-17 14:09] LABS: Basophils Absolute Auto 0.1 X10*3/uL (0.0-0.2); Eosinophils Absolute Auto 0.2 X10*3/uL (0.0-0.4); Eosinophils Percent Auto 2.9 % (0-4); Hematocrit 44.2 % (42.0-52.0); Hemoglobin 15.9 g/dl (14.0-18.0); Imm Gran Abs Auto 0.03 X10*3/uL (0.00-0.03); Imm Gran Pct Auto 0.4 % (0.0-0.4); Lymphocytes Absolute Auto 1.5 X10*3/uL (1.2-4.9); Lymphocytes Percent Auto 22.4 % (20-40); Mean Corpuscular Hemoglobin 31.5 pg (27.0-33.0); Mean Corpuscular Volume 87.5 fL (80.0-98.0); Mean Platelet Volume 9.5 fL (9.4-12.4); Monocytes Absolute Auto 0.6 X10*3/uL (0.1-1.2); Monocytes Percent Auto 8.3 % (2-11); Neutrophils Absolute Auto 4.5 x10*3/uL (2.0-8.3); Platelet Count 205 X10*3/uL (160-400); Red Blood Count 5.05 X10*6/uL (4.60-5.80); Red Cell Distribution Width 12.5 % (11.0-16.0); White Blood Count 6.9 X10*3/uL (4.8-10.8)
[2023-07-17 14:17] LABS: Appearance Urine Turbid; Glucose Urine UA Negative (Negative); Leukocyte Esterase Urine Negative (Negative); Nitrite Urine Negative (Negative); PH 5.5 (5.0-9.0); Specific Gravity - Urine >= 1.030 (1.005-1.025); UMIC TRIGGER UACC YES; Urine Blood Large (3+) (Negative); Urine Ketones Trace mg/dL (Negative); Urine Protein 100 (2+) mg/dL (Neg-Trace)
[2023-07-17 14:18] LABS: Color Urine BROWN
[2023-07-17 14:22] LABS: Alanine Aminotransferase 26 U/L (0-40); Albumin Level 4.3 g/dL (3.5-5.0); Alkaline Phosphatase 81 U/L (39-117); Anion Gap 12 (12-20); Aspartate Amino Transferase 23 U/L (5-37); Bilirubin Total 1.5 mg/dL (0.0-1.0); Blood Urea Nitrogen 17 mg/dL (9-16); Calcium 10.5 mg/dL (8.4-10.2); Carbon Dioxide 26 mmol/L (22-29); Chloride 109 mmol/L (96-108); Creatinine Clr Calc Pharmacy 48.2; Estimated Glomerular Filt Rate 51; Glucose Random 110 mg/dL (60-115); Magnesium 2.2 mg/dL (1.6-2.6); Potassium 5.3 mmol/L (3.3-5.1); Sodium 142 mmol/L (135-145); Total Protein 7.8 g/dL (6.5-8.0)
[2023-07-17 14:23] LABS: RBC Urine >20 /HPF (0-2); WBC Urine 0-5 /HPF (0-5)
[2023-07-17 14:24] LABS: Bacteria Urine Trace (None Seen); Hyaline Casts Urine 0-2 /LPF (0-2); Squamous Epithelial Cell Urine 0-2 /HPF (0-2)
== END 2023-07-17 17:18 | disposition home or self-care (01) ==
LOC: HO.ED 17:10
PROVIDERS: Physician Assistant Medical; Emergency Provider Emergency Medicine; PCP Internal Medicine
DX: R31.9 Hematuria, unspecified (principal); R10.9 Unspecified abdominal pain; E11.9 Type 2 diabetes mellitus without complications; I10 Essential (primary) hypertension; Z87.891 Personal history of nicotine dependence; Z79.899 Other long term (current) drug therapy
CPT/HCPCS: 36415; 74176; 80053; 81001; 83735; 85025; 99282; 99284

== ENCOUNTER 2023-08-18 15:23 | Outpatient (AMB) | payer OTHER, SELFPAY ==
--- NOTE | 2023-08-18 15:30 | A.OFFVIS_ITS ---
Intake Vital Signs 08/18/23 15:33 Height 5 ft 7 in Weight 171 lb BMI 26.8 Handedness Right Intake Visit Reasons: Newprob-left elbow pain Intake Note: Carson is a 68 year old right hand dominant male who presents today for a evaluation for his left elbow pain. Patient reports ongoing pain more more than 2 years. He states his pain is usually very low and always there but when he over works his arm he feels a achy pain. Patient reports he is unsure what may cause him pain. Allergies No Known Allergies [No Known Allergies*] Allergy (Verified 08/18/23 15:32) HPI Newprob-left elbow pain HPI Details 68-year-old right hand dominant male who presents in the office today for an evaluation of left elbow pain. The patient reports ongoing pain for 2 years. He claims his pain is normal very low but always present. He states when he over works his arm he gets an achy sensation. He is unsure the cause of his pain. Patient has a history of gout. [facility] Medical History (Updated 08/18/23 @ 16:16 by Neha Quintero PA-C) CHEKO (acute kidney injury) Cellulitis of right thumb Emphysema lung High cholesterol PONV (postoperative nausea and vomiting) Diabetes mellitus type 2, diet-controlled (~2014) Tubular adenoma of colon (~2018) Hypertension Personal history of nicotine dependence Surgical History Hx of bilateral cataract extraction S/P tendon repair History of cataract surgery History of nasal septoplasty History of colonoscopy History of cholecystectomy Family History Father Hypertension DM2 (diabetes mellitus, type 2) Mother DM2 (diabetes mellitus, type 2) Hypertension Hemochromatosis Brother DM2 (diabetes mellitus, type 2) Sister DM2 (diabetes mellitus, type 2) Social History Household Members: Spouse Housing: House Do you presently have visiting nurse or other home services: No Alcohol intake: never Patient Tobacco Use Status: Former Tobacco user Quit Date: 2009 Tobacco use type: Cigarette Years Smoked: 25pyh, onset 25yo, 3/4-1ppd x 30yrs, quit 2009 Second Hand Smoke Exposure: No service: No Review of Systems Const All systems reviewed & are unremarkable except as noted in HPI and below Physical Exam Vital Signs: BMI result Body Mass Index 26.8 Const General: cooperative and no acute distress Orientation/consciousness: patient oriented x3 Resp Effort & Inspection: normal respiratory effort and able to speak in complete sentences Cardio Peripheral pulses: Peripheral pulses 2+ throughout Skin General skin exam: no rashes or lesions noted Neuro General: patient oriented x3 Extrem Other: Left elbow: Area of edema over the olecranon bursa. Small palpable hard areas noted. No tenderness to palpation. Full elbow flexion, extension, pronation, and supination. No laxity with varus or valgus stress. NVI. Assessment & Plan Assessment & Plan (1) Olecranon bursitis, left elbow: Code(s): M70.22 - Olecranon bursitis, left elbow Plan Mr. Manzanares is a 68-year-old right hand dominant male who presents in the office today for an evaluation of left elbow pain. The patient reports ongoing pain for 2 years. He claims his pain is normal very low but always present. He states when he over works his arm he gets an achy sensation. He is unsure the cause of his pain. Patient has a history of gout. I discussed the treatment options with the patient today. Due to his history of gout I believe the bursa contains tophi. He expresses concern about this and the relation to this causing the bursa to become inflamed. He is strong advocating for surgical removal. I would like for the patient to follow up with Dr. Rodrigues to see if he would make a good surgical candidate for bursa removal. I educated the patient that there can be wound healing complications with the procedure. Such as but not limited too, poor healing, continued drainage, and infection. The patient understands this and would still like to move forward with the surgery. Follow up will be with Dr. Rodrigues for further evaluation and surgical planning, or sooner if needed. X-rays of the left elbow obtained while in the office today and reviewed by me, Neha Quintero PA-C, revealed no acute fracture or dislocation. 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 Orders: Orders XR elbow LT min 3V Today M25.529 - Pain in unspecified elbow Patient Instructions: Scribed for Neha Quintero PA-C by Maryjo Garsia chief medical officer, on 08/18/2023 at 3:25 pm, EST. Coding Level of Care Code New Pt Level 3 (23201) Diagnoses Olecranon bursitis, left elbow M70.22
[2023-08-18 15:33] VITALS: BMI 26.8
== END 2023-08-18 15:49 | disposition home or self-care (01) ==
PROVIDERS: PCP Internal Medicine; Visit Provider Physician Assistant
DX: M70.22 Olecranon bursitis, left elbow (principal)
CPT/HCPCS: 99213

== ENCOUNTER 2023-08-18 15:23 | Outpatient (REF) | payer OTHER, SELFPAY ==
--- NOTE | ~2023-08-18 | XR_ITS ---
EXAMINATION: XR ELBOW, LEFT CLINICAL INFORMATION: Pain in unspecified elbow COMPARISON: 02/03/2018 TECHNIQUE: AP, lateral, and oblique views of the left elbow. FINDINGS: Prominent olecranon spur. Increased soft tissue swelling overlying the olecranon. Bony alignment preserved. No acute displaced fracture. Small soft tissue calcifications adjacent to the lateral epicondyle. XR/XR elbow LT min 3V IMPRESSION: 1. Prominent olecranon spur. Increased soft tissue swelling overlying the olecranon. Small soft tissue calcifications adjacent to the lateral epicondyle, possibly related to epicondylitis. 2. No acute displaced fracture. Recommend follow-up imaging in 10-14 days if fracture is suspected. Additional imaging with CT scan or MRI should be considered for better visualization as these modalities are much more sensitive for detection of fracture or other underlying pathology.
== END 2023-08-18 15:24 | disposition home or self-care (01) ==
LOC: HO.HOSX 15:23
PROVIDERS: PCP Internal Medicine; Visit Provider Physician Assistant
DX: M70.22 Olecranon bursitis, left elbow (principal)
CPT/HCPCS: 73080

== ENCOUNTER 2023-08-31 13:29 | Outpatient (AMB) | payer OTHER, SELFPAY ==
--- NOTE | 2023-08-31 13:37 | MHC.OFFVIS ---
Intake Intake Visit Reasons: OV-left elbow pain Intake Note: Carson is a 68 year old right hand dominant male who presents today for a evaluation for his left elbow pain. Patient reports that he is here today to talk about possible treatment options for the left elbow. Allergies No Known Allergies [No Known Allergies*] Allergy (Verified 08/18/23 15:32) HPI OV-left elbow pain HPI Details Carson is a 68 year old Diabetic man who presents with left elbow bursitis. He complains of pain in his elbow with activity and ROM. He says his pain is intermittent and ranges from mild to severe. He says this has been present for several years now. He stays active with daily exercise and attending the gym. He says weight-lifting exercises or planking is painful for him. He says when his pain worsens he is out of commission for a few days afterwards. He also has a hx of Gout. [facility] Medical History (Updated 08/18/23 @ 16:16 by Neha Quintero PA-C) CHEKO (acute kidney injury) Cellulitis of right thumb Emphysema lung High cholesterol PONV (postoperative nausea and vomiting) Diabetes mellitus type 2, diet-controlled (~2014) Tubular adenoma of colon (~2018) Hypertension Personal history of nicotine dependence Surgical History Hx of bilateral cataract extraction S/P tendon repair History of cataract surgery History of nasal septoplasty History of colonoscopy History of cholecystectomy Family History Father Hypertension DM2 (diabetes mellitus, type 2) Mother DM2 (diabetes mellitus, type 2) Hypertension Hemochromatosis Brother DM2 (diabetes mellitus, type 2) Sister DM2 (diabetes mellitus, type 2) Social History Household Members: Spouse Housing: House Do you presently have visiting nurse or other home services: No Alcohol intake: never Patient Tobacco Use Status: Former Tobacco user Quit Date: 2009 Tobacco use type: Cigarette Years Smoked: 25pyh, onset 25yo, 3/4-1ppd x 30yrs, quit 2009 Second Hand Smoke Exposure: No service: No Review of Systems Const All systems reviewed & are unremarkable except as noted in HPI and below Physical Exam Const General: no acute distress, alert and awake Orientation/consciousness: patient oriented x3 HEENT Head: Yes normocephalic and Yes atraumatic Eyes EOM: EOMs intact bilaterally Resp Effort & Inspection: normal respiratory effort and able to speak in complete sentences Cardio Jugular venous distension: no JVD Skin General skin exam: turgor normal Rashes: no rashes Neuro General: patient oriented x3 Extrem Other: Left Elbow: Large firm prominent olecranon bursa that is not septic and not painful. Likely tophaceous. Psych Appearance: grossly normal Affect: normal affect Attitude: cooperative Assessment & Plan Assessment & Plan (1) Olecranon bursitis, left elbow: Code(s): M70.22 - Olecranon bursitis, left elbow Plan: This is a 68 year old woman with left elbow bursitis. He has pain with daily activity, which varies in frequency and severity. He feels limited in his daily activities, particularly exercising, and is frustrated by this. I discussed his diagnosis and treatment options. He would like to proceed with a left Olecranon bursectomy. I discussed the risks, benefits, and alternatives including, but not limited to, the risk of pain, infection, stiffness, need for further surgery as well as potential medical complications such as blood clots, pulmonary embolism and cardiac complications. I discussed the recovery timeline and process as well as the importance of PT. Carson is a good candidate for this surgery, and he wishes to proceed with this decision. (2) Type 2 diabetes mellitus with unspecified complications: Code(s): E11.8 - Type 2 diabetes mellitus with unspecified complications Plan Scribed for Fam Rodrigues MD by Hector Horvath medical lab technician, on 08/31/23 at 2:00 PM, EST. Coding Level of Care Code Est Pt Level 4 (54664) Diagnoses Olecranon bursitis, left elbow M70.22 Type 2 diabetes mellitus with unspecified complications E11.8
== END 2023-08-31 14:54 | disposition home or self-care (01) ==
PROVIDERS: PCP Internal Medicine; Visit Provider Orthopaedic Surgery
DX: M70.22 Olecranon bursitis, left elbow (principal)
CPT/HCPCS: 99214

== ENCOUNTER → 2023-08-31 13:29 | Outpatient (BNVA) | payer OTHER, SELFPAY | PROVIDERS: PCP Internal Medicine; Visit Provider Orthopaedic Surgery ==

== ENCOUNTER 2023-09-23 09:53 | Day surgery (SDC) | payer OTHER, SELFPAY ==
[2023-09-18 13:18] VITALS: BMI 27.2
--- NOTE | 2023-09-22 10:04 | P.CONAN_ITS ---
HPI - Anesthesia Eval Consult details Narrative: 68yo M for Left Bursectomy of Olecranon s/p Thumb I&D with GA-LMA 4 PONV Follows [facility] cardi[place]. Last office visit 09/2022 after testing. Stable with yearly f/u. [facility] Active Problems Active Problems: All Active Problems (Updated 08/18/23 @ 16:16 by Neha Quintero PA-C) Olecranon bursitis, left elbow (Acute) Type 2 diabetes mellitus with unspecified complications (Acute) Essential hypertension (Acute) Coronary artery calcification seen on CAT scan (Acute) Emphysema lung (Acute) Personal history of nicotine dependence (Acute) Past Medical History Medical History CHEKO (acute kidney injury) Cellulitis of right thumb Emphysema lung High cholesterol PONV (postoperative nausea and vomiting) Diabetes mellitus type 2, diet-controlled (~2014) Tubular adenoma of colon (~2018) Hypertension Personal history of nicotine dependence Family History Family History Father Hypertension DM2 (diabetes mellitus, type 2) Mother DM2 (diabetes mellitus, type 2) Hypertension Hemochromatosis Brother DM2 (diabetes mellitus, type 2) Sister DM2 (diabetes mellitus, type 2) Family history of problems with anesthesia: No Surgical History Surgical History Hx of bilateral cataract extraction S/P tendon repair History of cataract surgery History of nasal septoplasty History of colonoscopy History of cholecystectomy History of Problems with Anesthesia: No Social History Social History Household Members: Spouse Housing: House Do you presently have visiting nurse or other home services: No Alcohol intake: never Patient Tobacco Use Status: Former Tobacco user Quit Date: 2009 Tobacco use type: Cigarette Years Smoked: 25pyh, onset 25yo, 3/4-1ppd x 30yrs, quit 2009 Second Hand Smoke Exposure: No service: No Meds Allergies Allergy/AdvReac Type Severity Reaction Status Date / Time No Known Allergies Allergy Verified 09/30/23 12:32 [No Known Allergies*] Home Medications Medication Instructions Recorded Confirmed Last Taken Type atorvastatin 40 mg tablet 20 mg PO BEDTIME 10/15/22 02/02/23 Unknown History cholecalciferol (vitamin D3) 50 50 mcg PO DAILY 02/02/23 02/02/23 Unknown History mcg (2,000 unit) tablet lisinopril 5 mg tablet 5 mg PO DAILY 02/19/23 Unknown History Exam Exam Date and Time: September 22, 2023 1004 Height,Weight and Vital Signs: Height 5 ft 7 in Weight 78.925 kg Pertinent Lab Results Pertinent Lab Results: Laboratory Tests 07/17/23 14:01 WBC 6.9 Hgb 15.9 Hct 44.2 Plt Count 205 Sodium 142 Potassium 5.3 H D Chloride 109 H Carbon Dioxide 26 BUN 17 H Creatinine 1.39 Laboratory Tests 07/13/23 07:03 Hemoglobin A1c % 5.9 Narrative Narrative: Per 09/2022 cardiology visit In the chest CT scan, reported to have coronary artery calcifications as well as mild emphysema. Echocardiogram with normal LVEF, 60-65%. Basal inferior akinesis. Myocardial perfusion imaging study reported to have equivocal distal anterior/apical ischemia. In the exercise component he was able to exercise for 12.5 Mets and had no angina or EKG evidence of ischemia. Hypertensive blood pressure response. Overall, it seems that he has coronary disease but has absolutely no symptoms whatsoever. There are no high-risk findings on the testing and he has a very high workload without angina. Based on the above, we will treat him for stable CAD. Assessment and Plan Assessment Anesthesia Assessment: Chart Reviewed Final Anesthetic Review Family History of Problems with Anesthesia: No History of Problems with Anesthesia: No
[2023-09-23] VITALS (7 sets, daily range): BP systolic 137–161; BP diastolic 67–80; PULSE 57–68; RESP 16–18; TEMP 36.2–36.4; O2SAT 96–100
[2023-09-23] MEDS: Lactated Ringers 1,000 ML 100 ML IVCONT (10:32)
[2023-09-23] MEDS: Scopolamine 1.5 MG PATCH.TD.3 TRANSDERMA (10:32)
--- NOTE | 2023-09-23 10:44 | MHC.SHP ---
Pre-Procedural Eval Section A Date of Service: 09/23/23 The patient is an INPATIENT: No Changes since office visit: No Cold of Flu in the past 2 weeks, No New Medical Problems, No Changes in Medication and No Patient answered all questions The History & Physical has been completed within 30 days and I have reviewed it.: Yes Section B Chief Complaint: Olecranon bursitis, left elbow Allergies: Allergies Allergy/AdvReac Type Severity Reaction Status Date / Time No Known Allergies Allergy Verified 09/22/23 08:39 [No Known Allergies*] Plan I have reviewed the history and physical and performed a pertinent physical examination on my patient. No changes have occurred unless specified. Time Spent With Patient Time: Total time managing care of this patient today ____ minutes.
--- NOTE | 2023-09-23 11:51 | PM.OP ---
Brief Operative Note Date of Service: 09/23/23 Pre-op diagnosis: Left olecranon bursitis Post-op diagnosis: other Procedure: Tophaceous bursa Implants: Excision tophaceous bursa left olecranon Surgeon: Fam Rodrigues MD Anesthesia: GLMA and regional Was an Crop Pest Control Specialist used for this Procedure?: Yes Crop Pest Control Specialist: Neha Quintero Estimated blood loss (mL): 20 Tourniquet time (min): 15 IV fluids (mL): 500 Pathology: other Condition: stable Disposition: PACU
--- NOTE | 2023-09-23 13:59 | PC.NURSE ---
PATIENT DISCHARGED BY [facility]. UNABLE TO LOCATE DISCHARGE COPIES IN CHART.
--- NOTE | 2023-10-14 09:51 | W.PM.OPN ---
Operative Note Operative Note Date of Service: 09/23/23 Narrative: Date of Service: 09/23/23 Pre-op diagnosis: Left olecranon bursitis Post-op diagnosis: other Procedure: Tophaceous bursa Implants: Excision tophaceous bursa left olecranon Surgeon: Fam Rodrigues MD Anesthesia: GLMA and regional Was an Superintendent Operating used for this Procedure?: Yes Superintendent Operating: Neha Quintero Estimated blood loss (mL): 20 Tourniquet time (min): 15 IV fluids (mL): 500 Pathology: other Condition: stable Disposition: PACU Procedure in detail: Patient was brought to the operating room and placed supine on the surgical table. She was prepped and draped in standard sterile fashion and a time out was called to identify proper site, proper procedure and IV antibiotics per weight were administered. I made a posterior midline incision through the olecranon bursa. The bursal sac was incised and copious tophi. This was removed in its entirety. The ulnar nerve was protected at all times. The sac was excised down to the posterior humeral shaft. Once all tophi was removed I irrigated copiously and closed the full thickness skin flaps with nylon. Strerile dressing were applied and the patient was extubated and brought to the recovery room in stable condition.
== END 2023-09-23 14:03 | disposition home or self-care (01) ==
LOC: HO.SSS 09:54
PROVIDERS: PCP Internal Medicine; Visit Provider Orthopaedic Surgery
PROC: (CPT 24105; principal; 2023-09-23 11:50)
DX: M70.22 Olecranon bursitis, left elbow (principal); Y93.9 Activity, unspecified; E11.9 Type 2 diabetes mellitus without complications; I10 Essential (primary) hypertension; J43.9 Emphysema, unspecified; I25.10 Atherosclerotic heart disease of native coronary artery without angina pectoris; Z90.49 Acquired absence of other specified parts of digestive tract; Z87.891 Personal history of nicotine dependence
CPT/HCPCS: 24105; 88304; J0690; J1100; J1170; J2250; J2405; J2795

== ENCOUNTER → 2023-09-23 09:53 | Outpatient (BNV) | payer OTHER, SELFPAY | PROVIDERS: PCP Internal Medicine; Visit Provider Orthopaedic Surgery | DX: M70.22 Olecranon bursitis, left elbow (principal) | CPT/HCPCS: 24105 ==

== ENCOUNTER 2023-09-30 12:20 | Outpatient (AMB) | payer OTHER, SELFPAY ==
--- NOTE | 2023-09-30 12:25 | A.OFFVIS_ITS ---
Intake Vital Signs 09/30/23 12:29 Height 5 ft 8 in Weight 172 lb BMI 26.1 Intake Visit Reasons: PO-Lt Olecranon Bursectomy 09/23 NE Intake Note: Natalie 68 year old male presents today for a post operative left olecrannon bursectomy, DOS 09/23/23. Patient reports a buring sensation on his elbow. Currently his pain level is 7 out of 10. He has discomfort in bicep area and forearm. Allergies No Known Allergies [No Known Allergies*] Allergy (Verified 09/30/23 12:32) HPI PO-Lt Olecranon Bursectomy 09/23 NE HPI Details 68-year-old male who returns to [facility] today for post-op left olecranon bursectomy, 09/23/[address] Rodrigues. He states he has burning sensation and pain in his elbow and rates the pain as 7 on the scale of 0-10. He also c/o discomfort in his bicep area which radiates to his forearm. He is doing well otherwise and has no concerns today. Date of Service: 09/23/23 Pre-op diagnosis: Left olecranon bursitis Post-op diagnosis: other Procedure: Tophaceous bursa Excision tophaceous bursa left olecranon [facility] Medical History CHEKO (acute kidney injury) Cellulitis of right thumb Emphysema lung High cholesterol PONV (postoperative nausea and vomiting) Diabetes mellitus type 2, diet-controlled (~2014) Tubular adenoma of colon (~2018) Hypertension Personal history of nicotine dependence Surgical History Hx of bilateral cataract extraction S/P tendon repair History of cataract surgery History of nasal septoplasty History of colonoscopy History of cholecystectomy Family History Father Hypertension DM2 (diabetes mellitus, type 2) Mother DM2 (diabetes mellitus, type 2) Hypertension Hemochromatosis Brother DM2 (diabetes mellitus, type 2) Sister DM2 (diabetes mellitus, type 2) Social History Household Members: Spouse Housing: House Do you presently have visiting nurse or other home services: No Alcohol intake: never Patient Tobacco Use Status: Former Tobacco user Quit Date: 2009 Tobacco use type: Cigarette Years Smoked: 25pyh, onset 25yo, 3/4-1ppd x 30yrs, quit 2009 Second Hand Smoke Exposure: No service: No Review of Systems Const All systems reviewed & are unremarkable except as noted in HPI and below Physical Exam Vital Signs: BMI result Body Mass Index 26.1 Extrem Other: Left elbow: Incision clean, dry and intact. Steri strips intact. He has full ROM. He can supinate and pronate without pain. NVI. Assessment & Plan Assessment & Plan (1) Olecranon bursitis, left elbow: Code(s): M70.22 - Olecranon bursitis, left elbow Plan I did educate him on avoiding hyperflexion of the elbow to protect the incision. I encouraged him to wait another few days until he gets the incision wet but when he does begin to shower, he should avoid soaking or scrubbing the incision. I did educate him that the steri strip will fall on its own. I would like to see him back in 4 weeks but if he has any questions or concerns, he can contact sooner or cancel the appointment if things are going well and he has no questions or concerns. Patient Instructions: Scribed for Ike Chung PA-C, by René Fisher medical services coordinator, on 09/30/2023 at 12:30 PM EST. IIke PA-C, have personally reviewed and agree with the information entered by the scribe. Coding Level of Care Code Global (00073) Diagnoses Olecranon bursitis, left elbow M70.22
[2023-09-30 12:29] VITALS: BMI 26.1
== END 2023-09-30 12:41 | disposition home or self-care (01) ==
PROVIDERS: PCP Internal Medicine; Visit Provider Physician Assistant
DX: M70.22 Olecranon bursitis, left elbow (principal)
CPT/HCPCS: 99024

== ENCOUNTER → 2023-09-30 12:20 | Outpatient (BNVA) | payer OTHER, SELFPAY | PROVIDERS: PCP Internal Medicine; Visit Provider Physician Assistant ==

== ENCOUNTER 2023-10-15 14:16 | Outpatient (AMB) | payer OTHER, SELFPAY ==
--- NOTE | 2023-10-15 14:17 | A.OFFVIS_ITS ---
Intake Vital Signs 10/15/23 14:18 Height 5 ft 8 in Weight 171 lb 15.369 oz BMI 26.1 BP 150/78 H Blood Pressure Location Lt brachial Position Sitting Pulse 90 Intake Visit Reasons: 1 year follow up Intake Note: 1 year follow up Machine Presser Required: No Accompanied by: Self / Same As Patient Allergies No Known Allergies [No Known Allergies*] Allergy (Verified 10/15/23 14:19) HPI HPI Comments History of Present Illness Details Carson returns for follow-up regarding coronary disease. Lung cancer screening CT scan showed coronary artery calcification. Patient himself does not have any cardiac symptoms. There is a history of smoking but not in the last 10 years. There is also history of hypertension on appropriate medications. Father possibly has coronary disease but he passed at the age of 70 or so; according to patient he was smoking heavily and also had a poor lifestyle. Overall, patient is doing fine. No specific complaints like angina or shortness of breath or in fact anything cardiac sounding. He states he feels fine. [facility] Medical History CHEKO (acute kidney injury) Cellulitis of right thumb Emphysema lung High cholesterol PONV (postoperative nausea and vomiting) Diabetes mellitus type 2, diet-controlled (~2014) Tubular adenoma of colon (~2018) Hypertension Personal history of nicotine dependence Surgical History Hx of bilateral cataract extraction S/P tendon repair History of cataract surgery History of nasal septoplasty History of colonoscopy History of cholecystectomy Family History Father Hypertension DM2 (diabetes mellitus, type 2) Mother DM2 (diabetes mellitus, type 2) Hypertension Hemochromatosis Brother DM2 (diabetes mellitus, type 2) Sister DM2 (diabetes mellitus, type 2) Social History Household Members: Spouse Housing: House Do you presently have visiting nurse or other home services: No Alcohol intake: never Patient Tobacco Use Status: Former Tobacco user Quit Date: 2009 Tobacco use type: Cigarette Years Smoked: 25pyh, onset 25yo, 3/4-1ppd x 30yrs, quit 2009 Second Hand Smoke Exposure: No service: No Review of Systems Const Denies weakness ENT Denies dizziness Card Denies chest pain, Denies chest pain with activity, Denies syncope, Denies rapid heart rate, Denies pedal edema, Denies edema, Denies leg edema, Denies lightheadedness, Denies palpitations, Denies dyspnea, Denies dyspnea on exertion and Denies orthopnea Resp Denies cough, Denies dyspnea and Denies dyspnea on exertion GI Denies hematochezia and Denies change in stool character Musc Denies abnormal gait, Denies muscle cramps, Denies muscle weakness, Denies numbness, Denies radiating pain into limb and Denies tingling Neuro Denies abnormal gait, Denies dizziness, Denies syncope, Denies numbness, Denies tingling and Denies weakness Endo Denies palpitations Physical Exam Vital Signs: Last Vital Signs Pulse 90 10/15/23 14:18 BP 150/78 H 10/15/23 14:18 BMI result Body Mass Index 26.1 Const General: comfortable and no acute distress Orientation/consciousness: patient oriented x3 HEENT Other: Unremarkable Head: Yes normal to inspection Neck Neck: Yes normal visual inspection Chest Chest palpation & inspection: normal inspection of the chest Resp Auscultation: clear to auscultation bilaterally Cardio Palpation: normal PMI Heart sounds: S1 normal heart sound present, S2 normal heart sound present, no gallops, no murmurs and no rubs GI Palpation (GI): Soft to palpation Back/Spine/Pelvis Other: unremarkable Skin General skin exam: no rashes or lesions noted Neuro General: patient oriented x3 Extrem General: Yes normal to inspection Psych Mental Status: mental status grossly normal Office Procedures EKG Details: EKG with sinus rhythm at 90/Min; no significant ST-T changes and otherwise unremarkable. [place] [id number], Complete Assessment & Plan Assessment & Plan (1) Coronary artery calcification seen on CAT scan: Code(s): I25.10 - Atherosclerotic heart disease of [place] coronary artery without angina pectoris (2) Essential hypertension: Code(s): I10 - Essential (primary) hypertension (3) Ex-smoker: Code(s): Z87.891 - Personal history of nicotine dependence Plan Cardiac studies reviewed. In the chest CT scan, reported to have coronary artery calcifications as well as mild emphysema. Echocardiogram with normal LVEF, 60-65%. Basal inferior akinesis. Myocardial perfusion imaging study reported to have equivocal distal anterior/apical ischemia. In the exercise component he was able to exercise for 12.5 Mets and had no angina or EKG evidence of ischemia. Hypertensive blood pressure response. Overall, suspected stable CAD but high levels of performance on the treadmill an d hence good prognosis. His creatinine levels have been up and down recently. Will need to get the most recent level. If that is normal, then get a coronary CTA. Otherwise, continue statins. Aspirin. Total time spent including review of data, counseling, documentation, coordination of care-32 minutes. Coding Level of Care Code Est Pt Level 4 (27727) Diagnoses Coronary artery calcification seen on CAT scan I25.10 Essential hypertension I10 Ex-smoker Z87.891 CPT Codes EKG - CPT: 26879-[id number], Complete ([id number])
[2023-10-15 14:18] VITALS: BP 150/78; PULSE 90; BMI 26.1
== END 2023-10-15 14:44 | disposition home or self-care (01) ==
PROVIDERS: Visit Provider Internal Medicine
DX: I25.10 Atherosclerotic heart disease of native coronary artery without angina pectoris (principal); I10 Essential (primary) hypertension; Z87.891 Personal history of nicotine dependence
CPT/HCPCS: 93010; 99214

== ENCOUNTER → 2023-10-15 14:16 | Outpatient (BNVA) | payer OTHER, SELFPAY | PROVIDERS: Visit Provider Internal Medicine | DX: I25.10 Atherosclerotic heart disease of native coronary artery without angina pectoris (principal); I10 Essential (primary) hypertension; J43.9 Emphysema, unspecified; Z87.891 Personal history of nicotine dependence | CPT/HCPCS: 93005 ==

== ENCOUNTER 2023-10-20 07:49 | Outpatient (REF) | payer OTHER, SELFPAY ==
[2023-10-20 08:52] LABS: Anion Gap 11 (12-20); Blood Urea Nitrogen 16 mg/dL (9-16); Calcium 10.1 mg/dL (8.4-10.2); Carbon Dioxide 27 mmol/L (22-29); Chloride 107 mmol/L (96-108); Estimated Glomerular Filt Rate > 60; Glucose Random 153 mg/dL (60-115); Potassium 4.7 mmol/L (3.3-5.1); Sodium 140 mmol/L (135-145)
== END 2023-10-20 07:50 | disposition home or self-care (01) ==
LOC: HO.LAB 07:49
PROVIDERS: PCP Internal Medicine; Visit Provider Internal Medicine
DX: I25.10 Atherosclerotic heart disease of native coronary artery without angina pectoris (principal)
CPT/HCPCS: 36415; 80048

== ENCOUNTER 2023-10-28 12:24 | Outpatient (REF) | payer OTHER, SELFPAY ==
--- NOTE | ~2023-10-28 | XR_ITS ---
EXAMINATION: XR ELBOW, LEFT CLINICAL INFORMATION: Pain. COMPARISON: None available. TECHNIQUE: AP, lateral, and oblique views of the left elbow. FINDINGS: The bones and soft tissues are normal. No fracture or joint effusion. A small accessory ossification center is seen adjacent to the medial epicondyle of the distal humerus. Alignment is anatomic. Joint spaces are maintained. XR/XR elbow LT min 3V IMPRESSION: Normal left elbow.
== END 2023-10-28 12:25 | disposition home or self-care (01) ==
LOC: HO.HOSX 12:24
PROVIDERS: PCP Internal Medicine; Visit Provider Physician Assistant
DX: M70.22 Olecranon bursitis, left elbow (principal)
CPT/HCPCS: 73080

== ENCOUNTER 2023-10-28 12:24 | Outpatient (AMB) | payer OTHER, SELFPAY ==
[2023-10-28 12:25] VITALS: BMI 26.0
--- NOTE | 2023-10-28 12:25 | MHC.OFFVIS ---
Intake Vital Signs 10/28/23 12:25 Height 5 ft 8 in Weight 171 lb BMI 26.0 Intake Visit Reasons: PO-Lt Olecranon Bursectomy 09/23 NE Intake Note: Natalie 68 year old right hand dominant male presents today for a post operative left olecrannon bursectomy, DOS 09/23/23. Patient reports he was cleaning his goat's hooves which lead him to fall over landing on his left elbow. He states he is having a lot of pain. Allergies No Known Allergies [No Known Allergies*] Allergy (Verified 10/28/23 12:26) HPI PO-Lt Olecranon Bursectomy 09/23 NE HPI Details 68-year-old right hand dominant male who returns to the office today for post-op left olecranon bursectomy, 09/23/[address] Rodrigues. He states he was cleaning his goat?s hooves when he sustained a fall on his left elbow. He has worsening pain in the left elbow with redness. He denies fever or chills. No limited motion. [facility] Medical History CHEKO (acute kidney injury) Cellulitis of right thumb Emphysema lung High cholesterol PONV (postoperative nausea and vomiting) Diabetes mellitus type 2, diet-controlled (~2014) Tubular adenoma of colon (~2018) Hypertension Personal history of nicotine dependence Surgical History Hx of bilateral cataract extraction S/P tendon repair History of cataract surgery History of nasal septoplasty History of colonoscopy History of cholecystectomy Family History Father Hypertension DM2 (diabetes mellitus, type 2) Mother DM2 (diabetes mellitus, type 2) Hypertension Hemochromatosis Brother DM2 (diabetes mellitus, type 2) Sister DM2 (diabetes mellitus, type 2) Social History Household Members: Spouse Housing: House Do you presently have visiting nurse or other home services: No Alcohol intake: never Patient Tobacco Use Status: Former Tobacco user Quit Date: 2009 Tobacco use type: Cigarette Years Smoked: 25pyh, onset 25yo, 3/4-1ppd x 30yrs, quit 2009 Second Hand Smoke Exposure: No service: No Review of Systems Const All systems reviewed & are unremarkable except as noted in HPI and below Physical Exam Vital Signs: BMI result Body Mass Index 26.0 Extrem Other: Left elbow: Incision well healed however he does have an area along the superior aspect of the incision that resembles a small suture abscess. He does have surrounding and area of tenderness. He has full ROM. No pain with supination or pronation. NVI. Assessment & Plan Assessment & Plan (1) Olecranon bursitis, left elbow: Code(s): M70.22 - Olecranon bursitis, left elbow Plan I encouraged compression with an elvira wrap and I also recommend performing warm compress to the area to help with potential suture abscess. I did give him a prescription of Bactrim twice a day for 10 days to help with any superficial cellulitis type reaction that he appears to be having. I would like to see him back in 10 days for a wound check, sooner if needed. Orders: Orders XR elbow LT min 3V Today M25.522 - Pain in left elbow Medications: New sulfamethoxazole-trimethoprim 800-160 mg (Bactrim DS) 1 tab PO BID 20 tabs 0RF suture abscess 10 days Patient Instructions: Scribed for Ike Chung PA-C, by René Fisher medical pathologist, on 10/28/2023 at 12:30 PM EST. IIke PA-C, have personally reviewed and agree with the information entered by the scribe. Coding Level of Care Code Global (60042) Diagnoses Olecranon bursitis, left elbow M70.22
== END 2023-10-28 12:56 | disposition home or self-care (01) ==
PROVIDERS: PCP Internal Medicine; Visit Provider Physician Assistant
DX: M70.22 Olecranon bursitis, left elbow (principal)
CPT/HCPCS: 99024

== ENCOUNTER 2023-11-12 13:04 | Outpatient (AMB) | payer OTHER, SELFPAY ==
[2023-11-12 13:06] VITALS: BMI 26.0
--- NOTE | 2023-11-12 13:06 | A.OFFVIS_ITS ---
Intake Vital Signs 11/12/23 13:06 Height 5 ft 8 in Weight 171 lb BMI 26.0 Intake Visit Reasons: PO-left elbow bursectomy-wound check Intake Note: Natalie 68 year old right hand dominant male presents today for a post operative wound check of left olecrannon bursectomy, DOS 09/23/23. Patient reports he is doing well, states slight discomfort comes and goes. Allergies No Known Allergies [No Known Allergies*] Allergy (Verified 11/12/23 13:12) HPI PO-left elbow bursectomy-wound check HPI Details 68-year-old right hand dominant male who returns to the office today for post-op left olecranon bursectomy, 09/23/23. He states he has mild intermittent discomfort in his elbow but is doing well overall. He is completed with his 10-day antibiotics regimen last week. He has no other concerns today. [facility] Medical History CHEKO (acute kidney injury) Cellulitis of right thumb Emphysema lung High cholesterol PONV (postoperative nausea and vomiting) Diabetes mellitus type 2, diet-controlled (~2014) Tubular adenoma of colon (~2018) Hypertension Personal history of nicotine dependence Surgical History Hx of bilateral cataract extraction S/P tendon repair History of cataract surgery History of nasal septoplasty History of colonoscopy History of cholecystectomy Family History Father Hypertension DM2 (diabetes mellitus, type 2) Mother DM2 (diabetes mellitus, type 2) Hypertension Hemochromatosis Brother DM2 (diabetes mellitus, type 2) Sister DM2 (diabetes mellitus, type 2) Social History Household Members: Spouse Housing: House Do you presently have visiting nurse or other home services: No Alcohol intake: never Patient Tobacco Use Status: Former Tobacco user Quit Date: 2009 Tobacco use type: Cigarette Years Smoked: 25pyh, onset 25yo, 3/4-1ppd x 30yrs, quit 2009 Second Hand Smoke Exposure: No service: No Review of Systems Const All systems reviewed & are unremarkable except as noted in HPI and below Physical Exam Vital Signs: BMI result Body Mass Index 26.0 Extrem Other: Left elbow: Incision well healed . No erythema or edema. He has full ROM. No pain with supination or pronation. NVI. Assessment & Plan Assessment & Plan (1) Olecranon bursitis, left elbow: Code(s): M70.22 - Olecranon bursitis, left elbow Plan He is going to increase activity as tolerated using caution with hyperflexion and resting on the elbow to prevent irritation. If symptoms persist or worsens, patient will contact the office, otherwise follow-up as needed. Patient Instructions: Scribed for Ike Chung PA-C, by René Fisehr medical collections specialist, on 11/12/2023 at 1:00 PM EST. I, Ike Chung PA-C, have personally reviewed and agree with the information entered by the scribe. Coding Level of Care Code Global (50902) Diagnoses Olecranon bursitis, left elbow M70.22
== END 2023-11-12 13:33 | disposition home or self-care (01) ==
PROVIDERS: PCP Internal Medicine; Visit Provider Physician Assistant
DX: M70.22 Olecranon bursitis, left elbow (principal)
CPT/HCPCS: 99024

== ENCOUNTER → 2023-11-12 13:04 | Outpatient (BNVA) | payer OTHER, SELFPAY | PROVIDERS: PCP Internal Medicine; Visit Provider Physician Assistant ==

== ENCOUNTER 2023-12-15 07:41 | Outpatient (REF) | payer OTHER, SELFPAY ==
[2023-12-15 08:13] LABS: Basophils Absolute Auto 0.1 X10*3/uL (0.0-0.2); Basophils Percent Auto 1.2 % (0-2); Eosinophils Absolute Auto 0.1 X10*3/uL (0.0-0.4); Eosinophils Percent Auto 1.6 % (0-4); Hematocrit 45.6 % (42.0-52.0); Hemoglobin 16.1 g/dl (14.0-18.0); Imm Gran Abs Auto 0.03 X10*3/uL (0.00-0.03); Imm Gran Pct Auto 0.4 % (0.0-0.4); Lymphocytes Absolute Auto 1.2 X10*3/uL (1.2-4.9); Lymphocytes Percent Auto 17.9 % (20-40); MANUAL DIFF FLAG NO; Mean Corpuscular HGB Conc 35.3 g/dl (31.0-36.0); Mean Corpuscular Hemoglobin 31.5 pg (27.0-33.0); Mean Corpuscular Volume 89.2 fL (80.0-98.0); Monocytes Absolute Auto 0.4 X10*3/uL (0.1-1.2); Neutrophils Percent Auto 72.9 % (45-73); Platelet Count 261 X10*3/uL (160-400); Red Blood Count 5.11 X10*6/uL (4.60-5.80); Red Cell Distribution Width 12.5 % (11.0-16.0); White Blood Count 6.8 X10*3/uL (4.8-10.8)
[2023-12-15 08:43] LABS: Estimated Average Glucose 131 mg/dL; Hemoglobin A1c % 6.2 % (<6.0)
[2023-12-15 08:53] LABS: Alanine Aminotransferase 32 U/L (0-40); Albumin Level 4.5 g/dL (3.5-5.0); Alkaline Phosphatase 89 U/L (39-117); Anion Gap 16 (12-20); Aspartate Amino Transferase 32 U/L (5-37); Bilirubin Total 1.7 mg/dL (0.0-1.0); Blood Urea Nitrogen 19 mg/dL (9-16); Calcium 10.4 mg/dL (8.4-10.2); Carbon Dioxide 26 mmol/L (22-29); Chloride 103 mmol/L (96-108); Cholesterol 115 mg/dL (<200); Estimated Glomerular Filt Rate 54; Glucose Fasting 115 mg/dL (60-99); HDL Cholesterol 39 mg/dL (>40); LDL Cholesterol Calculated 55 mg/dL (<100); Potassium 5.1 mmol/L (3.3-5.1); Sodium 140 mmol/L (135-145); Triglycerides 106 mg/dL (<150)
[2023-12-15 09:07] LABS: Thyroid Stimulating Hormone 0.99 uIU/mL (0.32-4.0)
[2023-12-15 10:51] LABS: Appearance Urine Clear; Color Urine Yellow; Glucose Urine UA Negative (Negative); Leukocyte Esterase Urine Negative (Negative); Nitrite Urine Negative (Negative); PH 5.5 (5.0-9.0); Specific Gravity - Urine 1.025 (1.005-1.025); Urine Blood Negative (Negative); Urine Ketones Trace mg/dL (Negative); Urine Protein Trace mg/dL (Neg-Trace)
[2023-12-15 11:09] LABS: Creatinine Urine 273.87 mg/dL; Microalbum/Creatinine Ratio Ur 12.7 ug/mg cr (<30)
== END 2023-12-15 07:42 | disposition home or self-care (01) ==
LOC: HO.LAB 07:41
PROVIDERS: PCP Internal Medicine; Visit Provider Internal Medicine
DX: E11.9 Type 2 diabetes mellitus without complications (principal); I10 Essential (primary) hypertension
CPT/HCPCS: 36415; 80053; 80061; 81003; 82043; 82570; 83036; 84443; 85025

== ENCOUNTER 2024-01-26 14:41 | Outpatient (AMB) | payer OTHER, SELFPAY ==
[2024-01-26 15:01] VITALS: BP 140/68; PULSE 76; BMI 25.8
--- NOTE | 2024-01-26 15:01 | MHC.OFFVIS ---
Intake Vital Signs 01/26/24 15:01 01/26/24 15:15 Height 5 ft 8 in Weight 169 lb 15.622 oz BMI 25.8 BP 140/68 H 132/78 Blood Pressure Location Lt brachial Lt brachial Position Sitting Sitting Pulse 76 Intake Visit Reasons: follow up CTA Intake Note: follow up CTA Buckle Attacher Required: No Allergies No Known Allergies [No Known Allergies*] Allergy (Verified 11/12/23 13:12) Medication List - Last Reconciled 01/26/24 by Airam Leung NP atorvastatin 20 mg PO DAILY cholecalciferol (vitamin D3) 50 mcg PO DAILY lisinopril 10 mg PO DAILY HPI HPI Comments History of Present Illness Details 68-year-old male presents today for a follow-up after CTA. CTA showed no signficant or functional disease. Patient reports he has been doing well with no anginal symptoms. He exercises daily. States his blood pressures have been good and in the 130s systolic. [facility] Medical History CHEKO (acute kidney injury) Cellulitis of right thumb Emphysema lung High cholesterol PONV (postoperative nausea and vomiting) Diabetes mellitus type 2, diet-controlled (~2014) Tubular adenoma of colon (~2018) Hypertension Personal history of nicotine dependence Surgical History Hx of bilateral cataract extraction S/P tendon repair History of cataract surgery History of nasal septoplasty History of colonoscopy History of cholecystectomy Family History Father Hypertension DM2 (diabetes mellitus, type 2) Mother DM2 (diabetes mellitus, type 2) Hypertension Hemochromatosis Brother DM2 (diabetes mellitus, type 2) Sister DM2 (diabetes mellitus, type 2) Social History Household Members: Spouse Housing: House Do you presently have visiting nurse or other home services: No Alcohol intake: never Patient Tobacco Use Status: Former Tobacco user Quit Date: 2009 Tobacco use type: Cigarette Years Smoked: 25pyh, onset 25yo, 3/4-1ppd x 30yrs, quit 2009 Second Hand Smoke Exposure: No service: No Review of Systems Const Denies weakness ENT Denies dizziness Card Denies chest pain, Denies chest pain with activity, Denies syncope, Denies rapid heart rate, Denies pedal edema, Denies edema, Denies leg edema, Denies lightheadedness, Denies palpitations, Denies dyspnea, Denies dyspnea on exertion and Denies orthopnea Resp Denies cough, Denies dyspnea and Denies dyspnea on exertion GI Denies hematochezia and Denies change in stool character Musc Denies abnormal gait, Denies muscle cramps, Denies muscle weakness, Denies numbness, Denies radiating pain into limb and Denies tingling Neuro Denies abnormal gait, Denies dizziness, Denies syncope, Denies numbness, Denies tingling and Denies weakness Endo Denies palpitations Physical Exam Vital Signs: Last Vital Signs Pulse 76 01/26/24 15:01 BP 132/78 01/26/24 15:15 BMI result Body Mass Index 25.8 Const General: healthy appearing and no acute distress Orientation/consciousness: patient oriented x3 HEENT Head: Yes normal to inspection Eyes General: appearance normal, both eyes and all related structures Neck Neck: Yes normal visual inspection Chest Chest palpation & inspection: normal inspection of the chest Resp Effort & Inspection: normal respiratory effort Auscultation: clear to auscultation bilaterally Cardio Jugular venous distension: no JVD Palpation: normal PMI Rate: regular rate Rhythm: regular rhythm Heart sounds: S1 normal heart sound present, S2 normal heart sound present, no click, no gallops, no murmurs and no rubs GI Inspection: Yes normal to inspection Palpation (GI): Soft to palpation Skin General skin exam: no rashes or lesions noted Neuro General: patient oriented x3 Extrem General: Yes normal to inspection Psych Appearance: grossly normal Assessment & Plan Assessment & Plan (1) Coronary artery calcification seen on CAT scan: Code(s): I25.10 - Atherosclerotic heart disease of [place] coronary artery without angina pectoris Plan: CTA showed moderate stenosis of mid and distal RCA due to mixed plaque. FFR-CT sowed no functional or significant disease. Mild stensosis in proximal circumflex and proximal segment of dominate OM1 (25-49%). Normal left main execpt for fe eccentric calcific plaque producing less then 15% stenosis. Mild LAD senosis less than 50%. Patient is currently on a vegan diet. He exercises daily. Last LDL on 12/25/23 was 55. On atorvastatin 20mg. (2) Essential hypertension: Code(s): I10 - Essential (primary) hypertension Plan: Blood pressure was initially elevated and improved with rest. He states most of his readings are usually 130s systolic. Continue lisinopril. (3) Type 2 diabetes mellitus with unspecified complications: Code(s): E11.8 - Type 2 diabetes mellitus with unspecified complications Plan: On 12/15/23 A1C was 6.2. He is working on reducing carbs in his diet and is going to talk to his PCP regarding getting tighter control on blood sugars Plan Advised 6 month follow-up. He would like to come back in Sep when he usually has his annual with Dr. Will. He knows to call if there are any new symptoms or to seek ED care. Coding Level of Care Code Est Pt Level 4 (52530) Diagnoses Coronary artery calcification seen on CAT scan I25.10 Essential hypertension I10 Type 2 diabetes mellitus with unspecified complications E11.8
[2024-01-26 15:15] VITALS: BP 132/78
== END 2024-01-26 15:24 | disposition home or self-care (01) ==
PROVIDERS: PCP Internal Medicine; Visit Provider Nurse Practitioner
DX: I25.10 Atherosclerotic heart disease of native coronary artery without angina pectoris (principal); I10 Essential (primary) hypertension; E11.8 Type 2 diabetes mellitus with unspecified complications
CPT/HCPCS: 99214

== ENCOUNTER → 2024-01-26 14:41 | Outpatient (BNVA) | payer OTHER, SELFPAY | PROVIDERS: PCP Internal Medicine; Visit Provider Nurse Practitioner ==

== ENCOUNTER 2024-01-29 08:17 | Outpatient (REF) | payer OTHER, SELFPAY ==
--- NOTE | ~2024-01-29 | FL_ITS ---
EXAMINATION: XR FLUOROSCOPY UPPER GI WITH AIR CLINICAL INFORMATION: Dysphagia COMPARISON: None TECHNIQUE: Fluoroscopic air contrast upper GI examination was performed utilizing standard techniques with thin and thick barium and effervescent granules. Numerous spot images were obtained. FINDINGS: Lateral cine images of the oropharynx and hypopharynx demonstrate normal swallow mechanism with normal epiglottic inversion and soft palate elevation. There is a small amount of laryngeal penetration with thick barium to the level the true vocal cords. No subglottic aspiration. Mild nasopharyngeal reflux present. Persistent pooling of contrast noted in the vallecula and piriform sinuses. Hypopharyngeal structures appear normal without evidence of mass or diverticulum. There was no significant cricopharyngeal achalasia. Dual and single contrast images of the esophagus demonstrate a dilated esophagus. Mucosal pattern appears normal without evidence of stricture, mass, or ulcerations identified. There is to and fro motion of the barium with nonpropulsive tertiary contractions noted in the mid and distal esophagus. No evidence of hiatus hernia identified. Significant narrowing of the GE junction noted, most notable RF 1-13, most likely on the basis of the short segment benign stricture. Mild achalasia is also a possibility. Gastroesophageal reflux is seen up to the thoracic inlet. Dual contrast and single contrast images of the stomach demonstrated a normal contour. There are multiple areas of contrast pooling in the fundus, body, and antrum of the stomach could represent small superficial ulcers. No masses are seen. Contrast freely passed into the gastric antrum and duodenal bulb without delay. Single and air-contrast images of the duodenal bulb demonstrate no abnormality. The duodenal sweep demonstrates mildly thickened folds suggesting duodenal inflammation/peptic disease. No discrete ulcer. No malrotation. The imaged proximal jejunum has a normal fold pattern and caliber. There are cholecystectomy clips present. FLUOROSCOPY TIME: 3 minutes 39 seconds Number of Spot Images: 16 Number of Cine: 13 DOSE AREA PRODUCT: 2480 uGy-m2 (microgray-meter squared) FL/FL barium swallow IMPRESSION: 1. Small amount of laryngeal penetration with thick barium to the level of the true vocal cords. No subglottic aspiration is seen. 2. Dilated esophagus with nonpropulsive tertiary contractions consistent with esophageal dysmotility. 3. Significant gastroesophageal reflux. 4. Significant narrowing of the GE junction, possibly secondary to achalasia versus benign short segment stricture. 5. Multiple areas of contrast pooling in the fundus, body, and antrum the stomach that may represent small superficial apthous ulcers. Recommend correlation with EGD. 6. Mildly thickened folds of the duodenal sweep. This procedure was performed by Osorio Tucker PA-C, and supervised by Dr. Leung
== END 2024-01-29 08:18 | disposition home or self-care (01) ==
LOC: HO.XRAY 08:17
PROVIDERS: PCP Internal Medicine; Visit Provider Internal Medicine
DX: R13.19 Other dysphagia (principal)
CPT/HCPCS: 74220

== ENCOUNTER → 2024-01-29 08:19 | Outpatient (BNV) | payer OTHER, SELFPAY | PROVIDERS: PCP Internal Medicine; Visit Provider Physician Assistant Surgical | DX: R13.10 Dysphagia, unspecified (principal) | CPT/HCPCS: 74221 ==

== ENCOUNTER 2024-02-08 08:11 | Outpatient (REF) | payer OTHER, SELFPAY ==
--- NOTE | ~2024-02-08 | CT_ITS ---
EXAMINATION: CT CHEST SCREENING CLINICAL INFORMATION: Quit smoking 15 years ago. History of 1 pack per day for 25 pack years. COMPARISON: CT lung screening 12/26/2022. TECHNIQUE: Multidetector volumetric CT imaging of the chest is performed without contrast using low dose technique. Additional 2D coronal and sagittal reformatted images and axial 3D maximum intensity projection (MIP) images are generated on the CT workstation. This CT examination was performed using dose optimization techniques as appropriate, variously including the following: *Automated exposure control *Adjustment of mA and/or kV according to patient size (this includes techniques or standardized protocols for targeted exams where dose is matched to indication/reason for exam; i.e. extremities or head) *Use of iterative reconstruction technique DLP: 55 mGy-cm FINDINGS: LUNGS: There is a tiny 2 mm perifissural nodule in the left lower lobe with an even smaller nodule just below that (5:70 and 79), completely unchanged from prior (6:264 and 274). The lungs are otherwise clear with no evidence of inflammation or new or concerning nodules. MEDIASTINUM: The mediastinum is normal. CORONARY ARTERY CALCIFICATION: Moderate. PLEURA: There is no pleural effusion. No pleural mass or thickening. AXILLA: No lymphadenopathy. UPPER ABDOMEN: Unremarkable. OSSEOUS STRUCTURES: Unremarkable. CT/CT lung screening IMPRESSION: Tiny benign lung nodules unchanged. ASSESSMENT: Lung-RADS category 2: Benign. RECOMMENDATION: Routine annual low-dose CT screening in 12 months.
== END 2024-02-08 08:12 | disposition home or self-care (01) ==
LOC: HO.CT 08:11
PROVIDERS: PCP Internal Medicine; Visit Provider Nurse Practitioner Family
DX: Z12.2 Encounter for screening for malignant neoplasm of respiratory organs (principal); Z87.891 Personal history of nicotine dependence
CPT/HCPCS: 71271

== ENCOUNTER 2024-02-17 10:54 | Day surgery (SDC) | payer OTHER, SELFPAY ==
[2024-02-15 14:51] VITALS: BMI 25.8
--- NOTE | 2024-02-16 10:33 | P.CONAN_ITS ---
Documented by User: Zahra Rodas NP 02/16/24 10:37 HPI - Anesthesia Eval Consult details Narrative: 68yo M for Upper Endoscopy with Balloon Dilitation Follows [facility] cardiology. Stable at 12/2023 office visit. [facility] Active Problems Active Problems: All Active Problems (Updated 02/15/24 @ 14:56 by Myla Steele RN) Olecranon bursitis, left elbow (Acute) Type 2 diabetes mellitus with unspecified complications (Acute) Essential hypertension (Acute) Coronary artery calcification seen on CAT scan (Acute) Emphysema lung (Acute) Personal history of nicotine dependence (Acute) Past Medical History Medical History (Updated 02/15/24 @ 14:56 by Myla Steele RN) GERD (gastroesophageal reflux disease) CHEKO (acute kidney injury) Cellulitis of right thumb Emphysema lung High cholesterol PONV (postoperative nausea and vomiting) Diabetes mellitus type 2, diet-controlled (~2014) Tubular adenoma of colon (~2018) Hypertension Personal history of nicotine dependence Family History Family History Father Hypertension DM2 (diabetes mellitus, type 2) Mother DM2 (diabetes mellitus, type 2) Hypertension Hemochromatosis Brother DM2 (diabetes mellitus, type 2) Sister DM2 (diabetes mellitus, type 2) Family history of problems with anesthesia: No Surgical History Surgical History (Updated 02/15/24 @ 14:54 by Myla Steele RN) Hx of elbow surgery Hx of bilateral cataract extraction S/P tendon repair History of cataract surgery History of nasal septoplasty History of colonoscopy History of cholecystectomy History of Problems with Anesthesia: No Social History Social History (Updated 02/15/24 @ 14:54 by Myla Steele RN) Household Members: Spouse Housing: House Do you presently have visiting nurse or other home services: No Alcohol intake: never Patient Tobacco Use Status: Former Tobacco user Quit Date: 2008 Tobacco use type: Cigarette Years Smoked: 25pyh, onset 25yo, 3/4-1ppd x 30yrs, quit 2009 Second Hand Smoke Exposure: No Use of substances other than those prescribed or required for medical reasons: No Are you DNR?: No Advance Directives: No Advance Directives Information Provided: Yes service: No Meds Allergies Allergy/AdvReac Type Severity Reaction Status Date / Time No Known Allergies Allergy Verified 11/12/23 13:12 [No Known Allergies*] Home Medications Medication Instructions Recorded Confirmed Last Taken Type cholecalciferol (vitamin D3) 50 50 mcg PO DAILY 02/02/23 02/15/24 Unknown History mcg (2,000 unit) tablet atorvastatin 20 mg tablet 20 mg PO DAILY 10/15/23 02/15/24 Unknown History lisinopril 10 mg tablet 10 mg PO DAILY 10/15/23 02/15/24 Unknown History aspirin 81 mg tablet,delayed 81 mg PO DAILY 02/15/24 02/15/24 Unknown History release omeprazole 20 mg capsule,delayed 20 mg PO DAILY 02/15/24 02/15/24 Unknown History release Exam Height,Weight and Vital Signs: Height 5 ft 8 in Weight 77.111 kg Pertinent Lab Results Pertinent Lab Results: Laboratory Tests 12/15/23 Unknown WBC 6.8 Hgb 16.1 Hct 45.6 Plt Count 261 D Sodium 140 Potassium 5.1 Chloride 103 Carbon Dioxide 26 BUN 19 H Creatinine 1.33 Narrative Narrative: CTA 12/2023 showed moderate stenosis of mid and distal RCA due to mixed plaque. FFR-CT sowed no functional or significant disease. Mild stensosis in proximal circumflex and proximal segment of dominate OM1 (25-49%). Normal left main execpt for fe ec centric calcific plaque producing less then 15% stenosis. Mild LAD senosis less than 50%. EKG 08/2023 sinus rhythm at 90/Min; no significant ST-T changes and otherwise unremarkable. Normal LA and corrected QT. ECHO 2021 Conclusions: - 1. Normal LV systolic function with impaired relaxation filling pattern suggestion of increased filling pressures with regional wall motion abnormality 2. Trivial aortic regurgitation 3. Normal RV systolic pressure 4. No pericardial effusion Assessment and Plan Final Anesthetic Review Family History of Problems with Anesthesia: No History of Problems with Anesthesia: No Documented by User: Juvencio Sanders MD 02/17/24 11:26 [facility] Past Medical History Medical History (Updated 02/15/24 @ 14:56 by Myla Steele RN) GERD (gastroesophageal reflux disease) CHEKO (acute kidney injury) Cellulitis of right thumb Emphysema lung High cholesterol PONV (postoperative nausea and vomiting) Diabetes mellitus type 2, diet-controlled (~2014) Tubular adenoma of colon (~2018) Hypertension Personal history of nicotine dependence Family History Family History Father Hypertension DM2 (diabetes mellitus, type 2) Mother DM2 (diabetes mellitus, type 2) Hypertension Hemochromatosis Brother DM2 (diabetes mellitus, type 2) Sister DM2 (diabetes mellitus, type 2) Surgical History Surgical History (Updated 02/15/24 @ 14:54 by Myla Steele RN) Hx of elbow surgery Hx of bilateral cataract extraction S/P tendon repair History of cataract surgery History of nasal septoplasty History of colonoscopy History of cholecystectomy Social History Social History (Updated 02/15/24 @ 14:54 by Myla Steele RN) Household Members: Spouse Housing: House Do you presently have visiting nurse or other home services: No Alcohol intake: never Patient Tobacco Use Status: Former Tobacco user Quit Date: 2008 Tobacco use type: Cigarette Years Smoked: 25pyh, onset 25yo, 3/4-1ppd x 30yrs, quit 2009 Second Hand Smoke Exposure: No Use of substances other than those prescribed or required for medical reasons: No Are you DNR?: No Advance Directives: No Advance Directives Information Provided: Yes service: No Meds Allergies Allergy/AdvReac Type Severity Reaction Status Date / Time No Known Allergies Allergy Verified 11/12/23 13:12 [No Known Allergies*] Home Medications Medication Instructions Recorded Confirmed Last Taken Type cholecalciferol (vitamin D3) 50 50 mcg PO DAILY 02/02/23 02/15/24 Unknown History mcg (2,000 unit) tablet atorvastatin 20 mg tablet 20 mg PO DAILY 10/15/23 02/15/24 Unknown History lisinopril 10 mg tablet 10 mg PO DAILY 10/15/23 02/15/24 Unknown History aspirin 81 mg tablet,delayed 81 mg PO DAILY 02/15/24 02/15/24 Unknown History release omeprazole 20 mg capsule,delayed 20 mg PO DAILY 02/15/24 02/15/24 Unknown History release Exam Airway Mallampati Class: II TM Dist: >3cm Neck ROM: Full Assessment and Plan Assessment Anesthesia Assessment: Anesthesia Plan Discussed and Chart Reviewed Final Anesthetic Review NPO: Yes ASA Class: III Final Preanesthetic Review: No Changes in Pt Med Stat, Meds/Allgs Chart Reviewed, Consent Obtained/Reviewed and Anes Risks/Benef Reviewed Patient Risk: Intermediate Procedure Risk: Low Anesthetic Plan Anesthetic Plan: TIVA Disposition: Standard PACU
[2024-02-17 11:08] VITALS: BMI 25.4
[2024-02-17 11:12] VITALS: BP 173/80; PULSE 76; RESP 18; TEMP 36.7; BMI 25.4
[2024-02-17] MEDS: Lactated Ringers 1,000 ML 100 ML IVCONT (11:30)
[2024-02-17 12:14] VITALS: BP 91/50; PULSE 74; RESP 18; TEMP 36.4; O2SAT 99
--- NOTE | 2024-02-17 12:19 | PM.OP ---
Brief Operative Note Date of Service: 02/17/24 Pre-op diagnosis: Dysphagia Post-op diagnosis: other (Small hiatal hernia, Mild gastritis) Procedure: EGD with Balloon dilation 18 to 19 to 20mm, and biopsies Surgeon: Robbie Singh MD Anesthesia: MAC Was an Milk Route Supervisor used for this Procedure?: No Estimated blood loss (mL): 2.0 Pathology: other (A. Gastric antrum) Condition: stable Disposition: PACU
[2024-02-17 12:29] VITALS: BP 97/51; PULSE 72; RESP 16; O2SAT 98
[2024-02-17 12:44] VITALS: BP 119/64; PULSE 67; RESP 16; TEMP 36.4; O2SAT 99
--- NOTE | 2024-02-17 13:14 | OP_ITS ---
DATE OF SERVICE: 02/17/2024 SURGEON: Robbie Singh MD INDICATIONS: The patient presents for evaluation of dysphagia, reflux, and abnormal barium swallow. Full consent has been obtained from him for this, including risks of bleeding and perforation. PREOPERATIVE DIAGNOSIS: POSTOPERATIVE DIAGNOSIS: PROCEDURE PERFORMED: Esophagogastroduodenoscopy with balloon dilation of gastroesophageal junction, and biopsies. ESTIMATED BLOOD LOSS: COMPLICATIONS: ANESTHESIA: Monitored anesthesia care. ASSISTANTS: SPECIMENS: PREOPERATIVE DIAGNOSES: Dysphagia and abnormal barium swallow, gastroesophageal reflux. POSTOPERATIVE DIAGNOSES: Dysphagia and abnormal barium swallow, gastroesophageal reflux, small hiatal hernia, mild gastritis. DESCRIPTION OF PROCEDURE: The patient was placed in the left lateral decubitus position. The Olympus video gastroscope was passed in the posterior oropharynx and upper esophagus under direct vision. The scope was passed slowly into the distal esophagus. The gastroesophageal junction appeared at 38 cm. With insufflation of air, there did not appear to be any definitive stricture nor ring. The scope easily entered the stomach. There was a minimal hiatal hernia. The scope was advanced to the pylorus, and the duodenum was cannulated to the descending portion. The duodenum including the bulb appeared normal without mass or ulceration. The scope was withdrawn back to the stomach. The gastric antrum had some mild areas of erythema and edema, but no ulceration nor mass. There was good peristalsis. Biopsies were obtained from the antrum. The scope was retroflexed visualizing the proximal stomach carefully, which appeared normal, without any sign of mass or ulceration. The scope was straightened and withdrawn back to the esophagus. Given the symptomatology, I did use a [employer] incremental dilating balloon from 18 mm to 19 mm to 20 mm at the recommended pressures for between 30 and 60 seconds each. Post dilation, there was no definitive heme noted nor any appreciable change. The balloon itself pulled easily into and out of the stomach. The scope was then withdrawn through the remainder of the esophagus. The esophageal mucosa appeared normal. There was no evidence of any proximal esophageal rings nor webs. The scope was withdrawn from the patient. He tolerated the procedure well and was returned to the recovery area in stable condition. IMPRESSION: 1. Small hiatal hernia, gastroesophageal reflux. 2. Mild antral gastritis. 3. Status post balloon dilation of gastroesophageal junction. PLAN: The patient reports at the present time, his previous symptoms of dysphagia have completely resolved since he stopped the ibuprofen and has continued on his omeprazole. I suspect he was having some component of esophageal inflammation and esophageal spasm that has subsequently resolved by stopping the NSAID and continuing his PPI. I did advise him to continue the PPI for the time being. He will see me in the office later in the year for followup. I do not think any further evaluation would be needed. If he continues to have recurrent dysphagia, we could always consider esophageal motility testing, but at this time, I do not think that is needed. This has been discussed with his . MD REED Duarte/GOLDEN / [id number]
== END 2024-02-17 13:15 | disposition home or self-care (01) ==
PROVIDERS: PCP Internal Medicine; Visit Provider Internal Medicine
PROC: (CPT 43249; principal; 2024-02-17 12:10)
DX: R13.10 Dysphagia, unspecified (principal); K29.50 Unspecified chronic gastritis without bleeding; K21.9 Gastro-esophageal reflux disease without esophagitis; K44.9 Diaphragmatic hernia without obstruction or gangrene; I10 Essential (primary) hypertension; E78.5 Hyperlipidemia, unspecified; E11.9 Type 2 diabetes mellitus without complications; Z79.899 Other long term (current) drug therapy; Z79.1 Long term (current) use of non-steroidal anti-inflammatories (NSAID); Z79.82 Long term (current) use of aspirin; Z90.49 Acquired absence of other specified parts of digestive tract; Z79.890 Hormone replacement therapy; Z87.891 Personal history of nicotine dependence
CPT/HCPCS: 43249; 43239; 88305; 88313; 88342; C1726; J2704

== ENCOUNTER 2024-05-11 08:53 | Outpatient (REF) | payer OTHER, SELFPAY ==
--- NOTE | ~2024-05-11 | XR_ITS ---
EXAMINATION: XR HAND, LEFT CLINICAL INFORMATION: Pain in unspecified hand. COMPARISON: None available. TECHNIQUE: PA, lateral, and oblique views of the left hand. FINDINGS: Radiopaque marker placed by technologist to indicate the area of concern as indicated by the patient along the fourth digit. Mild degenerative changes in the first carpometacarpal joint. Mild degenerative changes with hypertrophic change in multiple metacarpophalangeal and IP joints. No displaced fracture of the fourth digit appreciated. Subtle sclerotic foci within the capitate and base of first metacarpal may represent bone islands. There is a small sclerotic focus with subtle surrounding lucency in the trapezoid, possibly related to a bony lesion such as an osteoid osteoma. XR/XR hand LT min 3V IMPRESSION: 1. Mild degenerative changes. 2. Subtle sclerotic foci within the capitate and base of first metacarpal may represent bone islands. Small sclerotic focus with subtle surrounding lucency in the trapezoid, possibly related to a bone lesion such as an osteoid osteoma. 3. Additional imaging with CT scan or MRI could be considered for further evaluation.
== END 2024-05-11 08:54 | disposition home or self-care (01) ==
LOC: HO.HOSX 08:53
PROVIDERS: PCP Internal Medicine; Visit Provider Physical Medicine & Rehabilitation
DX: M24.142 Other articular cartilage disorders, left hand (principal)
CPT/HCPCS: 73130

== ENCOUNTER 2024-05-11 08:53 | Outpatient (AMB) | payer OTHER, SELFPAY ==
--- NOTE | 2024-05-11 08:59 | MHC.OFFVIS ---
Intake Visit Reasons: Newprob-left hand/Ring finger swelling Intake Note: Natalie 68 year old male who presents today for an evaluation of left hand ring finger swelling. Patient states this started about 3-4 months ago. Pt states that it is not painful and his ROM is not affected by it. He states when he wears his wedding ring that is when it is uncomfortable. Pt denies any injury or previous surgeries to his hand/finger. Pt also denies any numbness or tingling in his hand/finger. Allergies No Known Allergies [No Known Allergies*] Allergy (Verified 05/11/24 08:59) Medication List - Last Reconciled 05/11/24 by Rebeca Ba MD aspirin 81 mg PO DAILY atorvastatin 20 mg PO DAILY cholecalciferol (vitamin D3) 50 mcg PO DAILY lisinopril 10 mg PO DAILY omeprazole 20 mg PO DAILY HPI Comments Details: Noted nodule 3-4 months. Not painful. No numbness. No weakness. Gets uncomfortable with the wedding ring. 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 No inciting injuries or accidents. No recent xrays. [facility] Medical History (Updated 05/11/24 @ 09:14 by Rebeca Ba MD) Ganglion cyst of finger of left hand GERD (gastroesophageal reflux disease) CHEKO (acute kidney injury) Cellulitis of right thumb Emphysema lung High cholesterol PONV (postoperative nausea and vomiting) Diabetes mellitus type 2, diet-controlled (~2014) Tubular adenoma of colon (~2018) Hypertension Personal history of nicotine dependence Surgical History (Updated 02/15/24 @ 14:54 by Myla Steele RN) Hx of elbow surgery Hx of bilateral cataract extraction S/P tendon repair History of cataract surgery History of nasal septoplasty History of colonoscopy History of cholecystectomy Family History Father Hypertension DM2 (diabetes mellitus, type 2) Mother DM2 (diabetes mellitus, type 2) Hypertension Hemochromatosis Brother DM2 (diabetes mellitus, type 2) Sister DM2 (diabetes mellitus, type 2) Social History (Updated 02/15/24 @ 14:54 by Myla Steele RN) Household Members: Spouse Housing: House Do you presently have visiting nurse or other home services: No Alcohol intake: never Patient Tobacco Use Status: Former Tobacco user Tobacco use type: Cigarette Years Smoked: 25pyh, onset 25yo, 3/4-1ppd x 30yrs, quit 2009 Second Hand Smoke Exposure: No service: No Review of Systems Const All systems reviewed & are unremarkable except as noted in HPI and below Physical Exam Constitutional: Patient appears to be in no acute distress, well nourished and well developed. MSK: Movable soft cyst on left 4th digit, sore to touch, no redness. No finger swelling. Other Heberden nodes seen on almost all DIP joints, bilateral hands. No joint effusion noted. No deformity noted. No intrinsic hand weakness noted. No atrophy noted. Kaylin test negative. Carpal compression test negative. Tinel sign negative. Strength is 5/5 in all muscle groups tested. No increased tone noted. Neurological: Neurologic examination of the upper and lower extremities was nonfocal with intact sensation, muscle stretch reflexes and without focal motor deficits . Farias?s negative bilaterally. Gait is non-antalgic without loss of balance. Results Reviewed Results Reviewed: I reviewed records from the following: - 01/2023 Right thumb infection and possible foreign body Independently reviewed hand xray done in office today - no fracture Assessment & Plan Assessment & Plan (1) Ganglion cyst of finger of left hand: Code(s): M67.442 - Ganglion, left hand Category: Medical Plan Left 4th digit nodule, suspect ganglion cyst because it seems attached to a tendon. Sent for xray - no bony abnormality seen on xray, no calcification. Await final reading. He is interested in getting this surgically removed. Will refer to Dr. Stout. Briefly discussed confirming with Dr. Stout if this is something that can be taken out surgically. And then informed patient. Assessment and plan discussed with patient, and patient was agreeable. All questions were answered thoroughly. Rebeca Ba MD, CHAZ Board Certified, [place] Board of [employer] and Rehabilitation (ABPMR) Board Certified, [place] Board of Electrodiagnostic Medicine (ABEM) Orders: Orders XR hand LT min 3V Today M79.643 - Pain in unspecified hand Coding Level of Care Code New Pt Level 4 (16361) Diagnoses Ganglion cyst of finger of left hand M67.442
== END 2024-05-11 09:48 | disposition home or self-care (01) ==
PROVIDERS: PCP Internal Medicine; Visit Provider Physical Medicine & Rehabilitation
DX: M67.442 Ganglion, left hand (principal)
CPT/HCPCS: 99203

== ENCOUNTER 2024-06-08 08:47 | Outpatient (AMB) | payer OTHER, SELFPAY ==
--- NOTE | 2024-06-08 09:03 | A.OFFVIS_ITS ---
Vital Signs 06/08/24 09:13 Height 5 ft 8 in Weight 170 lb BMI 25.8 Handedness Right Intake Visit Reasons: New Prob-Left hand/RF swelling-discuss surgery Intake Note: Carson is a 69 year old right hand dominant male who presents today for a new problem visit with complaints of left ring finger ganglion cyst. He was seen on 05/11/[address] Erazo who referred him to Dr Stout for left 4th digit nodule, suspect ganglion cyst that seems attached to a tendon. X-Rays done on 05/11/24. Patient reports he noticed about 4 months ago the grown on the dorsal aspect of his ring finger. DEnies pain, numbness, and tingling. He would like to discuss surgery so he can wear his wedding ring again. Says he was diagnosed w/ DM but does not take medications for it. Last A1c was 5.7-6. Allergies No Known Allergies [No Known Allergies*] Allergy (Verified 06/08/24 09:14) HPI HPI New Prob-Left hand/RF swelling-discuss surgery: Details: Carson is a 69 year old right hand dominant Diabetic man who presents to discuss a left ring finger mass. He complains of a mass on his left ring finger for ~4 months now. He denies any pain but says he has discomfort when trying to wear his wedding ring. He denies any prior treatment, numbness, tingling, or injury. He would like to discuss surgery for this. He says he is a Diabetic which is controlled through diet, he denies any DM medications. 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 [facility] Medical History (Updated 06/08/24 @ 09:36 by Hector Horvath) Ganglion cyst of finger of left hand GERD (gastroesophageal reflux disease) CHEKO (acute kidney injury) Cellulitis of right thumb Emphysema lung High cholesterol PONV (postoperative nausea and vomiting) Diabetes mellitus type 2, diet-controlled (~2014) Tubular adenoma of colon (~2018) Hypertension Personal history of nicotine dependence Surgical History (Updated 02/15/24 @ 14:54 by Myla Steele RN) Hx of elbow surgery Hx of bilateral cataract extraction S/P tendon repair History of cataract surgery History of nasal septoplasty History of colonoscopy History of cholecystectomy Family History Father Hypertension DM2 (diabetes mellitus, type 2) Mother DM2 (diabetes mellitus, type 2) Hypertension Hemochromatosis Brother DM2 (diabetes mellitus, type 2) Sister DM2 (diabetes mellitus, type 2) Social History (Updated 06/08/24 @ 09:15 by APOLONIA Lewis) Household Members: Spouse Housing: House Do you presently have visiting nurse or other home services: No Alcohol intake: never Patient Tobacco Use Status: Former Tobacco user Tobacco use type: Cigarette Years Smoked: 25pyh, onset 25yo, 3/4-1ppd x 30yrs, quit 2009 Second Hand Smoke Exposure: No service: No Current occupational status: employed 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, 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 Review of Systems Const All systems reviewed & are unremarkable except as noted in HPI and below Physical Exam Vital Signs: BMI result Body Mass Index 25.8 Const General: no acute distress and alert Orientation/consciousness: patient oriented x3 Neuro General: patient oriented x3 Extrem Other: Evaluation of Left Upper Extremity: The patient is alert, oriented, and in no acute distress Neuro: Median, Ulnar, Radial nerves motor and sensory intact and sensation is normal to the tips of all digits Vascular: Cap refill brisk ROM: He can make a fist and extend all his digits No locking or catching He has a mass on the dorsal ulnar aspect of his left ring finger, at the proximal phalanx level. This measures ~8-9mm in diameter, and is slightly mobile. No overlying skin changes, and not really tender to palpation. Radiographs: 3 views of the left hand form 05/11/24 were reviewed by me today in clinic. They show no fractures or dislocations. Psych Appearance: grossly normal Affect: normal affect Attitude: cooperative Assessment & Plan Assessment & Plan (1) Mass of finger of left hand: Code(s): R22.32 - Localized swelling, mass and lump, left upper limb Category: Medical (2) Type 2 diabetes mellitus with unspecified complications: Code(s): E11.8 - Type 2 diabetes mellitus with unspecified complications Category: Medical Plan Assessment & Plan: 1. Left ring finger mass, Measuring ~8-9mm in diameter, dorsal ulnar aspect at the proximal phalanx level. I educated him about this condition I discussed operative and non-operative treatment options The patient would like to proceed with surgery The risks and benefits of operative treatment were discussed with the patient and the patient wishes to proceed with surgery. These risks include, but are not limited to risk of damage to blood vessels, nerves, tendons, infection, recurrence, incomplete relief of preoperative symptoms, persistent pain, possible need for further surgery and the risks associated with regional blocks and anesthesia. The plan is to take the patient to the operating room sometime in the next few weeks for the following procedures: 1. Left ring finger excision of mass, under local All of the preoperative paperwork including the consent was reviewed today. All the patient's questions were answered. The patient understands that they will be contacted by our surgery aid soon to schedule this procedure. He says he is available on short-notice for a sooner surgery date. He denies blood thinners, asthma, heart, lung, kidney issues He is a Diabetic, and says this is managed through diet alone. His most recent HgA1c was ~5.8%. Scribed for Sofi Stout MD by Hector Horvath, medical transport specialist, on 06/08/24 at 9:25 AM, EST. Coding Level of Care Code Est Pt Level 4 (69154) Diagnoses Mass of finger of left hand R22.32 Type 2 diabetes mellitus with unspecified complications E11.8
[2024-06-08 09:13] VITALS: BMI 25.8
== END 2024-06-08 09:38 | disposition home or self-care (01) ==
PROVIDERS: PCP Internal Medicine; Visit Provider Orthopaedic Surgery
DX: R22.32 Localized swelling, mass and lump, left upper limb (principal); E11.8 Type 2 diabetes mellitus with unspecified complications
CPT/HCPCS: 99214

== ENCOUNTER → 2024-06-08 08:47 | Outpatient (BNVA) | payer OTHER, SELFPAY | PROVIDERS: PCP Internal Medicine; Visit Provider Orthopaedic Surgery ==

== ENCOUNTER → 2024-07-04 12:25 | Day surgery (SDC) | payer OTHER, SELFPAY ==
[2024-07-04 13:50] VITALS: BP 135/75; PULSE 80; RESP 18; TEMP 36.6; O2SAT 97; BMI 25.8
[2024-07-04 14:07] VITALS: BP 135/75; PULSE 80
--- NOTE | 2024-07-04 14:48 | P.OP_ITS ---
Operative Note Operative Note Date of Service: 07/04/24 Narrative: Operative Note Preop diagnosis: 1. Left ring finger dorsal ulnar soft tissue mass Postop diagnosis: same Procedure: 1. Left ring finger excisional soft tissue mass Surgeon: Sofi Stout MD Museum Exhibit Designer: None Anesthesia: digital block using 1% lidocaine with epinephrine Findings: Multi lobular soft tissue mass that appeared to be fluid filled removed from the dorsal ulnar aspect of the left ring finger essentially over the ulnar lateral band. EBL: Less than 5 mL Tourniquet time: None Specimens: Left ring finger mass to histopathology Complications: None Disposition: Brought to recovery room in stable condition Plan: Follow-up for 7-10 days for wound check and suture removal and to check pathology Indications: The patient is 69 years old, with a soft tissue mass on the dorsal ulnar aspect of the left ring finger . The risks and benefits of operative treatment including but not limited to risk of damage to blood vessels, nerves, tendons, infection, persistent pain, persistent symptoms, recurrence or possible need for additional surgery were discussed with the patient and the patient wishes to proceed with surgery. Procedure: Once consent was obtained a digital block was performed in the preop area using a combination of 1% lidocaine with epinephrine. The patient was then brought back to the operating suite and placed on the operative table in supine position. A tourniquet was applied to the proximal aspect of the left upper extremity and the limb was prepped and draped in a standard surgical fashion. Once assured that we had a good block, I made a 2 cm longitudinal incision over the dorsal ulnar aspect of the base of the left ring finger. The incision was made through the skin to the subcutaneous tissues using a 15. Blade. I then carefully dissected down to the level of the soft tissue mass. The mass was somewhat multi lobular and appeared to be fluid filled. It was situated over the ulnar lateral band and was dissected free from the lateral band and the surrounding soft tissues, removed from the patient and placed on the back table to be sent for histopathology. No other masses were appreciated. Once satisfied with with our mass excision the wound was copiously irrigated with normal saline and hemostasis was obtained with a brief period of local pressure. The skin edges were reapproximated with some 5.0 nylon suture materi al and a sterile dressing was applied. The patient appears to have tolerated the procedure well and with no complications. All digits were well vascularized at the conclusion of the case.
--- NOTE | 2024-07-04 14:48 | MHC.SHP ---
Pre-Procedural Eval Section A - 24 Hr Update-Section A only Date of Service: 07/04/24 The patient is an INPATIENT: No Changes since office visit: No Cold of Flu in the past 2 weeks, No New Medical Problems, No Changes in Medication and No Patient answered all questions The patient has been examined within 24 hours of the surgical procedure. The History & Physical has been completed within 30 days and I have reviewed it.: Yes Section B - Complete if H&P > 30 days Chief Complaint: Localized swelling, mass and lump, left upper limb Allergies: Allergies Allergy/AdvReac Type Severity Reaction Status Date / Time No Known Allergies Allergy Verified 06/08/24 09:14 [No Known Allergies*] Exam Exam Comment: Left ring finger dorsal soft tissue mass Plan Diagnosis/Plan: Unchanged I have reviewed the history and physical and performed a pertinent physical examination on my patient. No changes have occurred unless specified. Time Spent With Patient Time: Total time managing care of this patient today ____ minutes.
[2024-07-04 15:46] VITALS: BP 144/73; PULSE 68; RESP 16; TEMP 36.1; O2SAT 96
== END | disposition home or self-care (01) ==
PROVIDERS: PCP Internal Medicine; Visit Provider Orthopaedic Surgery
PROC: (CPT 26160; principal; 2024-07-04 13:30)
DX: M67.442 Ganglion, left hand (principal); E11.9 Type 2 diabetes mellitus without complications; I10 Essential (primary) hypertension; E78.00 Pure hypercholesterolemia, unspecified; J43.9 Emphysema, unspecified; N17.9 Acute kidney failure, unspecified; Z87.891 Personal history of nicotine dependence; Z98.890 Other specified postprocedural states
CPT/HCPCS: 26160; 88304; J0171

== ENCOUNTER → 2024-07-04 12:25 | Outpatient (BNV) | payer OTHER, SELFPAY | PROVIDERS: PCP Internal Medicine; Visit Provider Orthopaedic Surgery | DX: M67.442 Ganglion, left hand (principal) | CPT/HCPCS: 26115 ==

== ENCOUNTER 2024-07-19 12:51 | Outpatient (AMB) | payer OTHER, SELFPAY ==
--- NOTE | 2024-07-19 13:12 | A.OFFVIS_ITS ---
Intake Visit Reasons: PO LT RF mass exc 07/04/24 AR Intake Note: Carson is a 69 year old right hand dominant male who presents today post operatively S/P Left ring finger excisional soft tissue mass, DOS: 07/04/24. Patient reports concerns of throbbing pain in his SF that radiates into his forearm. Allergies No Known Allergies [No Known Allergies*] Allergy (Verified 07/19/24 13:21) HPI HPI PO LT RF mass exc 07/04/24 AR: Details: Patient is a 69 YO M who presents for 2 week postoperative evaluation status post left ring finger ganglion cyst excision, DOS 07/04/2024. Today, the patient reports that he is feeling well, and he is not experiencing any pain or discomfort in the left ring finger. However, the patient reports that he is experiencing significant discomfort on the dorsal aspect of his left small finger, as well as over the dorsal 5th metacarpal and extending up into the forearm. The patient reports that this pain does not occur with palpation, but it does occur with flexion of the small finger. Patient reports normal sensation throughout the left hand. No other acute complaints or concerns this time. Sutures removed at this time. [facility] Medical History (Updated 07/19/24 @ 13:34 by VÍCTOR Cortes) Ganglion cyst of finger of left hand GERD (gastroesophageal reflux disease) CHEKO (acute kidney injury) Cellulitis of right thumb Emphysema lung High cholesterol PONV (postoperative nausea and vomiting) Diabetes mellitus type 2, diet-controlled (~2014) Tubular adenoma of colon (~2018) Hypertension Personal history of nicotine dependence Surgical History Hx of elbow surgery Hx of bilateral cataract extraction S/P tendon repair History of cataract surgery History of nasal septoplasty History of colonoscopy History of cholecystectomy Family History Father Hypertension DM2 (diabetes mellitus, type 2) Mother DM2 (diabetes mellitus, type 2) Hypertension Hemochromatosis Brother DM2 (diabetes mellitus, type 2) Sister DM2 (diabetes mellitus, type 2) Social History Household Members: Spouse Housing: House Do you presently have visiting nurse or other home services: No Alcohol intake: never Patient Tobacco Use Status: Former Tobacco user Tobacco use type: Cigarette Years Smoked: 25pyh, onset 25yo, 3/4-1ppd x 30yrs, quit 2009 Second Hand Smoke Exposure: No service: No Current occupational status: employed 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 Neuro: Normal sensation to all digits of the left hand at this time Vascular: Cap refill brisk Pain: Patient reports pain on the dorsal small finger and over the dorsal 5th metacarpal with flexion of the left small finger ROM: Patient has diminished range of motion of the left small finger Skin: No lacerations or abrasions. General: No ecchymosis, erythema, or evidence of infection. Psych: Appears grossly normal Affect normal Attitude cooperative Results Reviewed Results Reviewed: Diagnosis Soft tissue, left hand ring finger, mass, excision: Fibrovascular tissue with myxoid and cystic degeneration consistent with ganglion cyst, and focal fragments of cartilage Assessment & Plan Assessment & Plan (1) Stiffness of left hand joint: Code(s): M25.642 - Stiffness of left hand, not elsewhere classified Category: Medical (2) Ganglion cyst of finger of left hand: Code(s): M67.442 - Ganglion, left hand Category: Medical Plan 1. Ganglion cyst of left ring finger status post excision DOS 07/04/2024 2. Postoperative stiffness of left small finger Patient appears to be recovering well from his procedure Patient is educated about the typical recovery course Patient is informed that the incision site looks very good, and then it appears that he is healing well Patient is educated that the discomfort he is feeling in his dorsal hand and small finger is likely secondary to stiffness due to his small finger being involved in the dressing after excision Patient is referred to occupational hand therapy for range of motion, strengthening, proprioceptive training of the left hand, particularly the small finger Patient is amenable to this plan Patient will follow-up in 4 weeks for [id number] check, sooner with any acute concerns Orders: Orders OT Evaluation and Treatment Today M25.642 - Stiffness of left hand, not elsewhere classified Coding Level of Care Code Global (83588) Diagnoses Stiffness of left hand joint M25.642 Ganglion cyst of finger of left hand M67.442
== END 2024-07-19 14:06 | disposition home or self-care (01) ==
PROVIDERS: PCP Internal Medicine
DX: M25.642 Stiffness of left hand, not elsewhere classified (principal); M67.442 Ganglion, left hand
CPT/HCPCS: 99024

== ENCOUNTER → 2024-07-19 12:51 | Outpatient (BNVA) | payer OTHER, SELFPAY | PROVIDERS: PCP Internal Medicine ==

== ENCOUNTER 2024-07-26 09:18 | Outpatient (RCR) | payer OTHER, SELFPAY ==
--- NOTE | 2024-07-26 12:56 | MHC.OT.EP ---
[address] [phone] Occupational Therapy Plan of Care Patient Name: Carson Manzanares Date of Evaluation: 07/26/24 Diagnosis: Pain in L SF Pain Location: Pain Score: 0 Pain Scale Used: Numeric (0 - 10) Aggravating Factors: Pt denied pain / or aggravating factors today Alleviating Factors: Assessment: Pt is a R hand dominant 69 yr. old male who had a cyst removed on 07/04/24; post surgery he noted 0/10 pain or difficulty w/ his RF ; nut reported pain and inflammation of his SF. He had a post op follow up w/ the PA and discussed his concerns ; pt was given naproxen which he reports helped to decrease all sx's of pain in his SF. He was also referred to skilled OT therapy for an evaluate and treat. Pt has great AROM & strength of his L hand; and denies any pain today. He has a DASH of 4.5%; we will review an HEP and scar scare today for continued success and pt. will follow up w/OT As needed. Frequency and Duration: The patient will be seen Short Term Goals: Nursing Home Goals: Pt will RPLOF Treatment Plan: Therapeutic Exercise Therapeutic Activity Home Exercise Program ADL Training Electronically Signed By: Layla Vital OTR/L Please Sign and return to therapist. Thank you once again for your referral.
== END 2025-03-16 10:15 | disposition home or self-care (01) ==
LOC: HO.OT 09:18
PROVIDERS: PCP Internal Medicine
DX: M25.642 Stiffness of left hand, not elsewhere classified (principal)
CPT/HCPCS: 97110; 97165

== ENCOUNTER 2024-10-03 06:41 | Outpatient (REF) | payer OTHER, SELFPAY ==
[2024-10-03 06:59] LABS: MANUAL DIFF FLAG NO
[2024-10-03 07:40] LABS: Basophils Absolute Auto 0.1 X10*3/uL (0.0-0.2); Basophils Percent Auto 1.4 % (0-2); Eosinophils Absolute Auto 0.2 X10*3/uL (0.0-0.4); Eosinophils Percent Auto 3.2 % (0-4); Hematocrit 46.1 % (42.0-52.0); Hemoglobin 16.4 g/dl (14.0-18.0); Imm Gran Abs Auto 0.04 X10*3/uL (0.00-0.03); Imm Gran Pct Auto 0.7 % (0.0-0.4); Lymphocytes Absolute Auto 1.3 X10*3/uL (1.2-4.9); Lymphocytes Percent Auto 22.4 % (20-40); Mean Corpuscular HGB Conc 35.6 g/dl (31.0-36.0); Mean Corpuscular Volume 89.9 fL (80.0-98.0); Mean Platelet Volume 10.9 fL (9.4-12.4); Monocytes Absolute Auto 0.4 X10*3/uL (0.1-1.2); Monocytes Percent Auto 7.9 % (2-11); Neutrophils Absolute Auto 3.6 x10*3/uL (2.0-8.3); Neutrophils Percent Auto 64.4 % (45-73); Platelet Count 196 X10*3/uL (160-400); Red Blood Count 5.13 X10*6/uL (4.60-5.80); Red Cell Distribution Width 12.1 % (11.0-16.0); White Blood Count 5.6 X10*3/uL (4.8-10.8)
[2024-10-03 08:02] LABS: Estimated Average Glucose 128 mg/dL; Hemoglobin A1C 183.8279 umol/L; Hemoglobin A1c % 6.1 % (<6.0); Total Hemoglobin (HGBA1C) 4278.0965 umol/L
[2024-10-03 08:41] LABS: Alanine Aminotransferase 36 U/L (0-40); Albumin Level 4.3 g/dL (3.5-5.0); Alkaline Phosphatase 110 U/L (39-117); Anion Gap 17 (12-20); Aspartate Amino Transferase 35 U/L (5-37); Bilirubin Total 1.7 mg/dL (0.0-1.0); Blood Urea Nitrogen 14 mg/dL (9-16); Calcium 10.3 mg/dL (8.4-10.2); Carbon Dioxide 26 mmol/L (22-29); Chloride 105 mmol/L (96-108); Cholesterol 136 mg/dL (<200); Estimated Glomerular Filt Rate 58; Glucose Fasting 140 mg/dL (60-99); HDL Cholesterol 44 mg/dL (>40); LDL Cholesterol Calculated 50 mg/dL (<100); Potassium 5.5 mmol/L (3.3-5.1); Sodium 142 mmol/L (135-145); Total Protein 7.5 g/dL (6.5-8.0); Triglycerides 213 mg/dL (<150)
[2024-10-03 08:50] LABS: PSA,Total (Free>4and<10) 0.72 ng/mL (0.00-4.00)
== END 2024-10-03 06:42 | disposition home or self-care (01) ==
LOC: HO.LAB 06:41
PROVIDERS: PCP Internal Medicine; Visit Provider Internal Medicine
DX: E11.9 Type 2 diabetes mellitus without complications (principal); I10 Essential (primary) hypertension; Z12.5 Encounter for screening for malignant neoplasm of prostate
CPT/HCPCS: 36415; 80053; 80061; 83036; 84153; 85025

== ENCOUNTER 2024-10-18 13:52 | Outpatient (AMB) | payer OTHER, SELFPAY ==
[2024-10-18 13:59] VITALS: BP 140/78; PULSE 76; BMI 25.8
--- NOTE | 2024-10-18 13:59 | A.OFFVIS_ITS ---
Vital Signs 10/18/24 13:59 Height 5 ft 8 in Weight 169 lb 12.095 oz BMI 25.8 BP 140/78 H Blood Pressure Location Lt brachial Position Sitting Pulse 76 Pulse Source Monitor Intake Visit Reasons: f/up per AC Allergies No Known Allergies [No Known Allergies*] Allergy (Verified 07/19/24 13:21) Medication List - Last Reconciled 10/18/24 by Rodrigo Will MD atorvastatin 20 mg PO DAILY cholecalciferol (vitamin D3) 50 mcg PO DAILY lisinopril 10 mg PO DAILY omeprazole 20 mg PO DAILY HPI Comments Details: Carson returns for follow-up regarding coronary disease. In the past, lung cancer screening CT scan showed coronary artery calcification. Subsequently, he has undergone comprehensive workup including echocardiogram stress perfusion imaging as well as coronary CTA. Overall, he states that he is feeling good. No cardiac complaints whatsoever. No angina. [facility] Medical History (Updated 10/18/24 @ 14:27 by Rodrigo Will MD) Ganglion cyst of finger of left hand GERD (gastroesophageal reflux disease) CHEKO (acute kidney injury) Cellulitis of right thumb Emphysema lung High cholesterol PONV (postoperative nausea and vomiting) Diabetes mellitus type 2, diet-controlled (~2014) Tubular adenoma of colon (~2018) Hypertension Personal history of nicotine dependence Surgical History Hx of elbow surgery Hx of bilateral cataract extraction S/P tendon repair History of cataract surgery History of nasal septoplasty History of colonoscopy History of cholecystectomy Family History Father Hypertension DM2 (diabetes mellitus, type 2) Mother DM2 (diabetes mellitus, type 2) Hypertension Hemochromatosis Brother DM2 (diabetes mellitus, type 2) Sister DM2 (diabetes mellitus, type 2) Social History Household Members: Spouse Housing: House Do you presently have visiting nurse or other home services: No Alcohol intake: never Patient Tobacco Use Status: Former Tobacco user Tobacco use type: Cigarette Years Smoked: 25pyh, onset 25yo, 3/4-1ppd x 30yrs, quit 2009 Second Hand Smoke Exposure: No service: No Current occupational status: employed 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, 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 Review of Systems Const Denies weakness ENT Denies dizziness Card Denies chest pain, Denies chest pain with activity, Denies syncope, Denies rapid heart rate, Denies pedal edema, Denies edema, Denies leg edema, Denies lightheadedness, Denies palpitations, Denies dyspnea, Denies dyspnea on exertion and Denies orthopnea Resp Denies cough, Denies dyspnea and Denies dyspnea on exertion GI Denies hematochezia and Denies change in stool character Musc Denies abnormal gait, Denies muscle cramps, Denies muscle weakness, Denies numbness, Denies radiating pain into limb and Denies tingling Neuro Denies abnormal gait, Denies dizziness, Denies syncope, Denies numbness, Denies tingling and Denies weakness Endo Denies palpitations Physical Exam Vital Signs: Last Vital Signs Pulse 76 10/18/24 13:59 BP 140/78 H 10/18/24 13:59 BMI result Body Mass Index 25.8 Const General: comfortable and no acute distress Orientation/consciousness: patient oriented x3 HEENT Other: Unremarkable Head: Yes normal to inspection Neck Neck: Yes normal visual inspection Chest Chest palpation & inspection: normal inspection of the chest Resp Auscultation: clear to auscultation bilaterally Cardio Palpation: normal PMI Heart sounds: S1 normal heart sound present, S2 normal heart sound present, no gallops, no murmurs and no rubs GI Palpation (GI): Soft to palpation Back/Spine/Pelvis Other: unremarkable Skin General skin exam: no rashes or lesions noted Neuro General: patient oriented x3 Extrem General: Yes normal to inspection Psych Mental Status: mental status grossly normal Office Procedures EKG Details: EKG with underlying sinus rhythm at 76/Min; PVCs. No significant ST-T changes; [place] [id number], Complete Assessment & Plan Assessment & Plan (1) Coronary artery calcification seen on CAT scan: Code(s): I25.10 - Atherosclerotic heart disease of [place] coronary artery without angina pectoris Category: Medical (2) Essential hypertension: Code(s): I10 - Essential (primary) hypertension Category: Medical (3) Hyperkalemia: Code(s): E87.5 - Hyperkalemia Category: Medical Plan Cardiac studies reviewed. In the chest CT scan, reported to have coronary artery calcifications as well as mild emphysema. Echocardiogram with normal LVEF, 60-65%. Basal inferior akinesis. Myocardial perfusion imaging study reported to have equivocal distal anterior/apical ischemia. In the exercise component he was able to exercise for 12.5 Mets and had no angina or EKG evidence of ischemia. Hypertensive blood pressure response. In the coronary CTA, moderate stenosis in the mid RCA/distal RCA due to mixed plaque. Unremarkable FFR. Mild stenosis in the proximal circumflex/proximal OM1. Mid LAD with less than 50% stenosis. Tiny eccentric calcific plaque in the left main. Overall, he has got stable coronary disease but has a high level of performance on the treadmill. Continue aggressive risk factor modification. He can take low-dose aspirin. We discussed about that. For blood pressure, he is on lisinopril 10 mg daily but his potassium seems to run high. We can cut back on the dose to 5 mg daily and recheck BMP in a month or so. Add amlodipine instead. He will check home blood pressures. Continue statins. LDL is well controlled. Slightly high triglycerides but previously normal. May recheck in due course. Follow-up in 1 year. In the interim, he will call with concerns. Discussed with significant other. Orders: Orders Basic Metabolic Panel 4 Weeks E87.5 - Hyperkalemia Medications: New lisinopril 5 mg PO DAILY 90 tabs 1RF amlodipine 5 mg PO DAILY 90 tabs 1RF Coding Level of Care Code Est Pt Level 4 (69082) Diagnoses Coronary artery calcification seen on CAT scan I25.10 Essential hypertension I10 Hyperkalemia E87.5 CPT Codes EKG - CPT: 77054-[id number], Complete ([id number])
== END 2024-10-18 14:22 | disposition home or self-care (01) ==
PROVIDERS: PCP Internal Medicine; Visit Provider Internal Medicine
DX: I25.10 Atherosclerotic heart disease of native coronary artery without angina pectoris (principal); I10 Essential (primary) hypertension; E87.5 Hyperkalemia
CPT/HCPCS: 93010; 99214

== ENCOUNTER → 2024-10-18 13:52 | Outpatient (BNVA) | payer OTHER, SELFPAY | PROVIDERS: PCP Internal Medicine; Visit Provider Internal Medicine | DX: I25.10 Atherosclerotic heart disease of native coronary artery without angina pectoris (principal); I10 Essential (primary) hypertension; E87.5 Hyperkalemia; Z79.899 Other long term (current) drug therapy | CPT/HCPCS: 93005 ==

== ENCOUNTER 2024-11-25 11:00 | Outpatient (REF) | payer OTHER, SELFPAY ==
--- OUTSIDE RECORDS SUMMARY | 2024-11-25 11:09 | XMS_ITS ---
Author Organization [facility] Address [address] [place] [address] Care Team Providers Care School Traffic Supervisor Name Role Phone Robbie Bruner DO Primary Care Provider Unavail able Robbie Singh Unavailable [phone] ALLERGIES Allergen (clinical drug ingredient) Drug/Non Drug Allergy documented on EMR Reaction Allergy Type Onset Date Status seasonal (uncoded) Unknown Allergy A ctive REASON FOR VISIT patient presents today for dysphagia MEDICATIONS Medication SIG (Take, Route, Frequency, Duration) Notes Start Date End Date Status Omeprazole 20 MG Oral for 30 02/03/2024 Active Atorvastatin Calcium 10 MG 1 tablet Oral ly Once a day Active Lisinopril 5 MG 1 tablet Orally Once a day Active Vitamin D3 2000 UNIT 1 capsule Orally On ce a day Active SOCIAL HISTORY Tobacco Use: Social History Observation Description Date Details (start date - stop date) Former Smoker NA - NA Sex Assigned At : Social History Observation Description Sex Assigned At Unknown Tobacco Use/Smoking Question Answer Notes Patient is a former smoker How long has it been since you last smoked? 5-10 years Alcohol Screen Question Answer Notes Did you have a drink containing alcohol in the p ast year? No Points 0 Interpretation Negative PROBLEMS Problem Type ICD Code Onset Dates Problem Status W/U Status Risk SNOMED Code Notes Problem Esophageal spasm (K22.4) Active confirmed Esophageal spasm (41526275) VITAL SIGNS BMI 25.85 kg/m2 02/26/2024 Blood pressure systolic 00 mm Hg 02/26/20 24 Blood pressure diastolic 00 mm Hg 024 Height 68 in 02/26/2024 Weight 170 lbs 02/26/2024 Encounters Encounter Location Date Provider Diagnosis [facility] [address] [place] [address] 02/26/2024 Robbie Singh Encounter for screening for malignant neoplasm of colon Z12.11 ; Dysphagia R13.10 ; Hx of adenomatous colonic polyps Z86.010 ; Abnormal barium swallow R93.3 and Esophageal spasm K22.4 ASSESSMENTS Encounter Date Diagnosis Assessment Notes Treatment Notes Treatment Clinical Notes 02/26/2024 Encounter for screening for malignant neoplasm of colon (ICD-10 - Z12.11) Stop the omeprazole after you finish this month's supply and observe things. If symptoms relapse then go back on the omeprazole every other day or every day. Call me if problems persist. 02/26/2024 Dysphagia (ICD-10 - R13.10) 02/26/2024 Hx of adenomatous colonic polyps (ICD-10 - Z86.010) 02/26/2024 Abnormal barium swallow (ICD-10 - R93.3) 02/26/2024 Esophageal spasm (ICD-10 - K22.4) PLAN OF TREATMENT Treatment Notes Assessment Notes Encounter for screening for malignant neoplasm of colon Stop the omeprazole after you finish thi s month's supply and observe things. If symptoms relapse then go back on the omeprazole every other day or every day. Call me if problems persist. Next Appt Details Follow Up: prn, Reason: Progress Notes * Examination Category Sub-Category Detail Notes General Examination GENERAL APPEARANCE: pleasant , well nourished, well developed, in no acute distress HEAD: EYES: sclera non-icteric EARS: NOSE: THROAT: NECK/THYROID: no cervical lymphade nopathy, neck supple HEART: S1, S2 normal CHEST: LUNGS: clear to auscultatio n bilaterally ABDOMEN: normal bowel sounds, no guarding or rigidity, no guarding or rigidity, no masses palpable, soft, nontender, nondistended NEUROLOGIC: alert and oriented SKIN: nonjaundiced, no spi jamie angiomata EXTREMITIES: no edema PERIPHERAL PULSES: BACK: BREASTS: MUSCULOSKELETAL: MALE GENITOURINARY: LYMPH NODES: RECTAL EXAM: FEMALE GENITOURINARY: ORAL CAVITY: mucosa moist
--- OUTSIDE RECORDS SUMMARY | 2024-11-25 11:09 | XMS_ITS ---
Author Organization [facility] Address [address] [place] [address] Care Team Providers Care Explosive Ordnance Disposal Manager Name Role Phone Robbie Bruner DO Primary Care Provider Unavail able Robbie Singh Unavailable [phone] REASON FOR VISIT please schedule ov with Dr. Singh Encounters Encounter Location Date Provider Diagnosis [facility] [address] [place] [address] 02/22/2024 Robbie Singh PLAN OF TREATMENT No Information
--- OUTSIDE RECORDS SUMMARY | 2024-11-25 11:09 | XMS_ITS ---
Author Organization [facility] Address [address] [place] [address] Care Team Providers Care Collections Analyst Name Role Phone Robbie Bruner DO Primary Care Provider Unavail able Robbie Singh Unavailable [phone] REASON FOR VISIT abn barium swallow, dysphagia, PROBLEMS Problem Type ICD Code Onset Dates Problem Status W/U Status Risk SNOMED Code Notes Problem Gastroesophageal reflux (K21.9) Active confirmed Esophageal reflux finding (509687984) Problem Chronic gastritis (K29.50) Active confirmed Chronic gastritis (5705126) Encounters Encounter Location Date Provider Diagnosis [facility] [address] [place], [place] [id number] 02/17/2024 Robbie Singh Gastroesophageal ref lux K21.9 ; Dysphagia R13.10 ; Hiatal hernia K44.9 ; Chronic gastritis K29.50 and Abnormal barium swallow R93.3 ASSESSMENTS Encounter Date Diagnosis Assessment Notes Treatment Notes Treatment Clinical Notes 02/17/2024 Gastroesophageal ref lux (ICD-10 - K21.9) 02/17/2024 Dysphagia (ICD-10 - R13.10) 02/17/2024 Hiatal hernia (ICD-1 0 - K44.9) 02/17/2024 Chronic gastritis (ICD-10 - K29.50) 02/17/2024 Abnormal barium swal low (ICD-10 - R93.3) PLAN OF TREATMENT No Information
--- OUTSIDE RECORDS SUMMARY | 2024-11-25 11:10 | XMS_ITS ---
Author Organization Robbie Bruner DO, FACP Address [address] [place], [place] [id number] Care Team Providers Care Associate Manager Name Role Phone ZohrehRobbie andersen Primary Care Provider ALLERGIES No Known Allergies REASON FOR VISIT 6 month f/u, Follow up hypertension, type II diabetes mellitus, diet controlled presently MEDICATIONS Medication SIG (Take, Route, Frequency, Duration) Notes Start Date End Date Status Omeprazole 20 MG 1 capsule 30 minutes before morning meal Orally Once a day Active Vitamin D 2000 UNIT 1 capsule Orally Onc e a day 08/15/2015 Active Accu-Chek SmartView Test strip as directed In Vitro Twice a week 08/15/2015 Active FreeStyle Lancets - as directed fingerst ick Twice a week Active Atorvastatin Calcium 20 MG 1 tablet Oral ly Once a day Active Lisinopril 10 MG 1 tablet Orally Once a day Active Aspirin Adult Low Dose 81 MG 1 tablet Orally Once a day Active SOCIAL HISTORY Tobacco Use: Social History Observation Description Date Details (start date - stop date) Former Smoker NA - NA Sex Assigned At : Social History Observation Description Sex Assigned At Unknown Tobacco Use/Smoking Question Answer Notes Patient is a former smoker How long has it been since y ou last smoked? > 10 years Additional Findings: Tobacco Non-User Fo rmer smoker, currently using no form of tobacco Alcohol Screen Question Answer Notes Did you have a drink containing alcohol in the p ast year? No Points 0 Interpretation Negative VITAL SIGNS BMI 26.47 kg/m2 09/07/2024 Blood pressure systolic 138 mm Hg 09/07/20 24 Blood pressure diastolic 62 mm Hg 024 Height 67 in 09/07/2024 Weight 169 lbs 09/07/2024 Encounters Encounter Location Date Provider Diagnosis Robbie Bruner , [address] [id number] 09/07/2024 Robbie Bruner Type 2 diabetes mellitus without complication E11.9 ; Essential hypertension I10 ; Vitamin D deficiency, unspecified E55.9 and Prostate cancer screening Z12.5 ASSESSMENTS Encounter Date Diagnosis Assessment Notes Treatment Notes Treatment Clinical Notes 09/07/2024 Type 2 diabetes mellitus without complication (ICD-10 - E11.9) 09/07/2024 Essential hypertension (ICD-10 - I10) 09/07/2024 Vitamin D deficiency, unspecified (ICD-10 - E55.9) 09/07/2024 Prostate cancer screening (ICD-10 - Z12.5) PLAN OF TREATMENT Medication Medication Name Sig Start Date Stop Date Notes Omeprazole 20 MG 1 capsule 30 minutes before morning meal Orally Once a day Vitamin D 2000 UNIT 1 capsule Orally Once a day 08/15/2015 Accu-Chek SmartView Test strip as direct ed In Vitro Twice a week 08/15/2015 FreeStyle Lancets - as directed fingerst ick Twice a week Atorvastatin Calcium 20 MG 1 tablet Orally Once a day Lisinopril 10 MG 1 tablet Orally Once a day Aspirin Adult Low Dose 81 MG 1 tablet Orally Once a day Next Appt Details Follow Up: 6 Months, Reason: follow up visit Progress Notes * Examination Category Sub-Category Detail Notes General Examination GENERAL APPEARANCE: in no ac [place] distress, well developed, well nourished HEAD: normocephalic, atrau matic HEART: no murmurs, regular rate and rhythm, S1, S2 normal LUNGS: clear to auscultatio n bilaterally ABDOMEN: normal, bowel sounds present, soft, nontender, nondistended SKIN: warm and dry EXTREMITIES: no edema BACK: MUSCULOSKELETAL: PSYCH: alert, oriented, cog nitive function intact
--- OUTSIDE RECORDS SUMMARY | 2024-11-25 11:10 | XMS_ITS ---
Author Organization Robbie Bruner DO [facility] Address [address] [place], [place] [id number] Care Team Providers Care Biofuels Plant Manager Name Role Phone Robbie Bruner Primary Care Provider REASON FOR VISIT Returned call Encounters Encounter Location Date Provider Diagnosis Robbie Bruner DO, FACP [address] [place], [place] [id number] 10/05/2024 Robbie Bruner PLAN OF TREATMENT No Information
--- OUTSIDE RECORDS SUMMARY | 2024-11-25 11:10 | XMS_ITS | Patient Health Record ---
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 Cutter Operator Name Role Phone ZohrehRobbie andersen Primary Care Provider ALLERGIES No Known Allergies RESULTS Component Value Reference Range Notes Complete Blood Count Auto Di ff Reviewed date:12/16/2023 04:42:39 PM Interpretation:Normal Performing Lab:[facility], [address] [place] [phone] Notes/Report: White Blood Count 6.8 4.8-10.8 X10*3/uL Red Blood Count 5.11 4.60-5.80 X10*6/uL Hemoglobin 16.1 14.0-18.0 g/dl Hematocrit 45.6 42.0-52.0 % Mean Corpuscular Volume 89.2 80.0-98.0 fL Mean Corpuscular Hemoglobin 31.5 27.0-33.0 pg Mean Corpuscular HGB Conc 35.3 31.0-36.0 g/dl Red Cell Distribution Width 12.5 11.0-16.0 % Platelet Count 261 160-400 X10*3/uL Mean Platelet Volume 10.0 9.4-12.4 fL Neutrophils Percent Auto 72.9 45-73 % Imm Gran Pct Auto 0.4 0.0-0.4 % Lymphocytes Percent Auto 17.9 20-40 % Monocytes Percent Auto 6.0 2-11 % Eosinophils Percent Auto 1.6 0-4 % Basophils Percent Auto 1.2 0-2 % NRBC Pct Auto 0.0 0.0-0.2 /100WBC Neutrophils Absolute Auto 5.0 2.0-8.3 x10*3/u L Imm Gran Abs Auto 0.03 0.00-0.03 X10*3/uL Lymphocytes Absolute Auto 1.2 1.2-4.9 X10*3/u L Monocytes Absolute Auto 0.4 0.1-1.2 X10*3/uL Eosinophils Absolute Auto 0.1 0.0-0.4 X10*3/u L Basophils Absolute Auto 0.1 0.0-0.2 X10*3/uL NRBC Abs Auto 0.000 0.0-0.012 X10*3/uL Urinalysis Reviewed date:12/16/2023 04:42:39 PM Interpretation:Abnormal Performing Lab:[facility], [address] [place] [phone] Notes/Report: Color Urine Yellow Appearance Urine Clear PH 5.5 5.0-9.0 Glucose Urine UA Negative Negative mg/dL Urine Blood Negative Negative Specific Stockwell - Urine 1.025 1.005-1.025 Urine Protein Trace Neg-Trace mg/dL Urine Ketones Trace Negative mg/dL Nitrite Urine Negative Negative Leukocyte Esterase Urine Negative Negative Comprehensive Clark. Panel Fa st Reviewed date:12/16/2023 04:44:17 PM Interpretation:Abnormal Performing Lab:[facility], [address] [place] [phone] Notes/Report: Sodium 140 135-145 mmol/L Potassium 5.1 3.3-5.1 mmol/L Chloride 103 96-108 mmol/L Carbon Dioxide 26 22-29 mmol/L Anion Gap 16 12-20 Blood Urea Nitrogen 19 9-16 mg/dL Creatinine 1.33 0.5-1.4 mg/dL Estimated Glomerular Filt Rate 54 NOTE: For -Tajik individuals, multiply the result by 1.210. Chronic Kidney Disease: Estimated GFR < 60 mL/min/1.73m2 Severe Kidney Disease: Estimated GFR < 15 mL/min/1.73m2 Glucose Fasting 115 60-99 mg/dL A fasting glucose from 100-125 mg/dl is considered impaired (pre-diabetes). Calcium 10.4 8.4-10.2 mg/dL Bilirubin Total 1.7 0.0-1.0 mg/dL Aspartate Amino Transferase 32 5-37 U/L Alanine Aminotransferase 32 0-40 U/L Total Protein 8.0 6.5-8.0 g/dL Albumin Level 4.5 3.5-5.0 g/dL Alkaline Phosphatase 89 39-117 U/L Lipid Panel Reviewed date:12/16/2023 04:42:39 PM Interpretation:Normal Performing Lab:[address] [address] Notes/Report: Triglycerides 106 <150 mg/dL Desirable Triglyceride: less than 150 mg/dL Borderline High Triglyceride 150-199 mg/dL High Triglyceride: 200-499 mg/dL Very High Triglyceride: greater than or equal to 5OO mg/dL Cholesterol 115 <200 mg/dL Desirable Cholesterol: less than 200 mg/dL Borderline High Cholesterol: 200-239 mg/dL High Cholesterol: greater than 239 mg/dL LDL Cholesterol Calculated 55 <100 mg/dL Desirable LDL: less than 100 mg/dL Near Optimal/Above Optimal LDL: 110-129 mg/dL Borderline High LDL: 130-159 mg/dL High LDL: 160-189 mg/dL Very High LDL: greater than or equal to 190 mg/dL HDL Cholesterol 39 >40 mg/dL Desirable HDL: greater than 40 mg/dL Note: This HDL assay may give artificially low results in patients with liver disease. Thyroid Stimulating Hormone Reviewed date:12/16/2023 04:42:39 PM Interpretation:Normal Performing Lab:[address] [address] Notes/Report: Thyroid Stimulating Hormone 0.99 0.32-4.0 uIU/ mL TSH 3rd Generation ([facility]) Microalbumin, Random Reviewed date:12/16/2023 04:42:39 PM Interpretation:Normal Performing Lab:[address] [address] Notes/Report: Creatinine Urine 273.87 Microalbumin Urine 35.0 Microalbum/Creatinine Ratio Ur 12.7 <30 ug/mg cr Albumin/Creatinine Ratio Reference Ranges: Normal: < 30 ug/mg creatinine Microalbuminuria: 30 - 300 ug/mg creatinine Clinical Albuminuria: > 300 ug/mg creatinine Hemoglobin A1c Reviewed date:12/16/2023 04:42:59 PM Interpretation:Abnormal Performing Lab:[facility], [address] [place] [address] Notes/Report: Hemoglobin A1c % 6.2 <6.0 % Hemoglobin A1C Reference Range Adults: 4.8 - 6.0 % Non diabetic: < 6.0 % Goal: < 7.0 % Additional Action Suggested: > 8.0 % Note: Hemoglobin A1c results are invalid for patients with abnormal amounts of HbF. Blood transfusions may impact the HbA1c concentration in the patient sample. Estimated Average Glucose 131 eAG = Estimated average glucose which is %A1C expressed as average glucose, using the formula of the E0F-Mpivmbj Average Glucose study (ADAG), Diabetes Care, Vol.31,#8, Jun. 2007 FL barium swallow Reviewed date:02/01/2024 06:08:13 PM Interpretation:Abnormal Performing Lab: Notes/Report: [address] [address] Fluoroscopy Report Signed Patient: Carson Manzanares MR#: [id number] : 1955 Acct:[id number] Age/Sex: 68 / M ADM Date: 01/29/24 Loc: [facility] Attending Dr: Robbie Bruner DO Ordering Physician: Robbie Bruner DO Date of Service: 01/29/24 Procedure(s): FL barium swallow Accession Number(s): [id number] cc: Robbie Bruner DO EXAMINATION: XR FLUOROSCOPY UPPER GI WITH AIR CLINICAL INFORMATION: Dysphagia COMPARISON: None TECHNIQUE: Fluoroscopic air contrast upper GI examination was performed utilizing standard techniques with thin and thick barium and effervescent granules. Numerous spot images were obtained. FINDINGS: Lateral cine images of the oropharynx and hypopharynx demonstrate normal swallow mechanism with normal epiglottic inversion and soft palate elevation. There is a small amount of laryngeal penetration with thick barium to the level the true vocal cords. No subglottic aspiration. Mild nasopharyngeal reflux present. Persistent pooling of contrast noted in the vallecula and piriform sinuses. Hypopharyngeal structures appear normal without evidence of mass or diverticulum. There was no significant cricopharyngeal achalasia. Dual and single contrast images of the esophagus demonstrate a dilated esophagus. Mucosal pattern appears normal without evidence of stricture, mass, or ulcerations identified. There is to and fro motion of the barium with nonpropulsive tertiary contractions noted in the mid and distal esophagus. No evidence of hiatus hernia identified. Significant narrowing of the GE junction noted, most notable RF 1-13, most likely on the basis of the short segment benign stricture. Mild achalasia is also a possibility. Gastroesophageal reflux is seen up to the thoracic inlet. Dual contrast and single contrast images of the stomach demonstrated a normal contour. There are multiple areas of contrast pooling in the fundus, body, and antrum of the stomach could represent small superficial ulcers. No masses are seen. Contrast freely passed into the gastric antrum and duodenal bulb without delay. Single and air-contrast images of the duodenal bulb demonstrate no abnormality. The duodenal sweep demonstrates mildly thickened folds suggesting duodenal inflammation/peptic disease. No discrete ulcer. No malrotation. The imaged proximal jejunum has a normal fold pattern and caliber. There are cholecystectomy clips present. FLUOROSCOPY TIME: 3 minutes 39 seconds Number of Spot Images: 16 Number of Cine: 13 DOSE AREA PRODUCT: 2480 uGy-m2 (microgray-meter squared) FL/FL barium swallow IMPRESSION: 1. Small amount of laryngeal penetration with thick barium to the level of the true vocal cords. No subglottic aspiration is seen. 2. Dilated esophagus with nonpropulsive tertiary contractions consistent with esophageal dysmotility. 3. Significant gastroesophageal reflux. 4. Significant narrowing of the GE junction, possibly secondary to achalasia versus benign short segment stricture. 5. Multiple areas of contrast pooling in the fundus, body, and antrum the stomach that may represent small superficial apthous ulcers. Recommend correlation with EGD. 6. Mildly thickened folds of the duodenal sweep. This procedure was performed by Osorio Tucker PA-C, and supervised by Dr. Leung Dictated By: Osorio Tucker Signed By: <Electronically signed by Osoiro Tucker in OV> 02/01/24 1311 <Electronically signed by Angel Leung MD in [place]> 02/01/24 1315 DD/ 0855 TD/TT: Heavy Equipment Operator: CT lung screening Reviewed date:02/09/2024 06:01:53 PM Interpretation:Benign Performing Lab: Notes/Report: [address] [address] [address] Scan Report Signed Patient: Carson Manzanares MR#: [id number] : 1955 Acct:[id number] Age/Sex: 68 / M ADM Date: 02/08/24 Loc: HO.CT Attending Dr: Tatum Higgins NP Ordering Physician: Tatum Higgins NP Date of Service: 02/08/24 Procedure(s): CT lung screening Accession Number(s): [id number] cc: Robbie Bruner DO; Tatum Higgins NP EXAMINATION: CT CHEST SCREENING CLINICAL INFORMATION: Quit smoking 15 years ago. History of 1 pack per day for 25 pack years. COMPARISON: CT lung screening 12/26/2022. TECHNIQUE: Multidetector volumetric CT imaging of the chest is performed without contrast using low dose technique. Additional 2D coronal and sagittal reformatted images and axial 3D maximum intensity projection (MIP) images are generated on the CT workstation. This CT examination was performed using dose optimization techniques as appropriate, variously including the following: *Automated exposure control *Adjustment of mA and/or kV according to patient size (this includes techniques or standardized protocols for targeted exams where dose is matched to indication/reason for exam; i.e. extremities or head) *Use of iterative reconstruction technique DLP: 55 mGy-cm FINDINGS: LUNGS: There is a tiny 2 mm perifissural nodule in the left lower lobe with an even smaller nodule just below that (5:70 and 79), completely unchanged from prior (6:264 and 274). The lungs are otherwise clear with no evidence of inflammation or new or concerning nodules. MEDIASTINUM: The mediastinum is normal. CORONARY ARTERY CALCIFICATION: Moderate. PLEURA: There is no pleural effusion. No pleural mass or thickening. AXILLA: No lymphadenopathy. UPPER ABDOMEN: Unremarkable. OSSEOUS STRUCTURES: Unremarkable. CT/CT lung screening IMPRESSION: Tiny benign lung nodules unchanged. ASSESSMENT: Lung-RADS category 2: Benign. RECOMMENDATION: Routine annual low-dose CT screening in 12 months. Dictated By: John Kumari MD Signed By: <Electronically signed by John Kumari MD in [place]> 02/08/242 DD/ 0953 TD/TT: Heavy Equipment Operator: KATHERINE Pathology Reviewed date:02/22/2024 02:48:30 PM Interpretation:Benign Performing Lab:[facility], [address] [facility], [place] [address] Notes/Report: XR hand LT min 3V Reviewed date:05/24/2024 12:39:36 PM Interpretation:Abnormal Performing Lab: Notes/Report: [facility] [address] [place] [address] XRay Report Signed Patient: Carson Manzanares MR#: [id number] : 1955 Acct:[id number] Age/Sex: 68 / M ADM Date: 05/11/24 Loc: LYNNX Attending Dr: Rebeca Ba MD Ordering Physician: Rebeca Erazo Date of Service: 05/11/24 Procedure(s): XR hand LT min 3V Accession Number(s): [id number] cc: Robbie Bruner DO; Rebeca Erazo EXAMINATION: XR HAND, LEFT CLINICAL INFORMATION: Pain in unspecified hand. COMPARISON: None available. TECHNIQUE: PA, lateral, and oblique views of the left hand. FINDINGS: Radiopaque marker placed by technologist to indicate the area of concern as indicated by the patient along the fourth digit. Mild degenerative changes in the first carpometacarpal joint. Mild degenerative changes with hypertrophic change in multiple metacarpophalangeal and IP joints. No displaced fracture of the fourth digit appreciated. Subtle sclerotic foci within the capitate and base of first metacarpal may represent bone islands. There is a small sclerotic focus with subtle surrounding lucency in the trapezoid, possibly related to a bony lesion such as an osteoid osteoma. XR/XR hand LT min 3V IMPRESSION: 1. Mild degenerative changes. 2. Subtle sclerotic foci within the capitate and base of first metacarpal may represent bone islands. Small sclerotic focus with subtle surrounding lucency in the trapezoid, possibly related to a bone lesion such as an osteoid osteoma. 3. Additional imaging with CT scan or MRI could be considered for further evaluation. Dictated By: Jolene Chance MD Signed By: <Electronically signed by Jolene Chance MD in OV> 05/24/24 0750 DD/ TD/TT: Heavy Equipment Operator: Pathology Reviewed date:07/06/2024 01:19:33 PM Interpretation:Benign Performing Lab:[facility], [address] [place] [address] Notes/Report: Diabetic eye exam Reviewed date:09/07/2024 02:39:11 PM Interpretation:No diabetic retinopathy Performing Lab: Notes/Report: No diabetic retinopathy Complete Blood Count Auto Di ff Reviewed date:10/03/2024 11:57:29 AM Interpretation:Normal Performing Lab:[facility], [address] [place] [address] Notes/Report: White Blood Count 5.6 4.8-10.8 X10*3/uL Red Blood Count 5.13 4.60-5.80 X10*6/uL Hemoglobin 16.4 14.0-18.0 g/dl Hematocrit 46.1 42.0-52.0 % Mean Corpuscular Volume 89.9 80.0-98.0 fL Mean Corpuscular Hemoglobin 32.0 27.0-33.0 pg Mean Corpuscular HGB Conc 35.6 31.0-36.0 g/dl Red Cell Distribution Width 12.1 11.0-16.0 % Platelet Count 196 160-400 X10*3/uL Mean Platelet Volume 10.9 9.4-12.4 fL Neutrophils Percent Auto 64.4 45-73 % Imm Gran Pct Auto 0.7 0.0-0.4 % Lymphocytes Percent Auto 22.4 20-40 % Monocytes Percent Auto 7.9 2-11 % Eosinophils Percent Auto 3.2 0-4 % Basophils Percent Auto 1.4 0-2 % NRBC Pct Auto 0.0 0.0-0.2 /100WBC Neutrophils Absolute Auto 3.6 2.0-8.3 x10*3/u L Imm Gran Abs Auto 0.04 0.00-0.03 X10*3/uL Lymphocytes Absolute Auto 1.3 1.2-4.9 X10*3/u L Monocytes Absolute Auto 0.4 0.1-1.2 X10*3/uL Eosinophils Absolute Auto 0.2 0.0-0.4 X10*3/u L Basophils Absolute Auto 0.1 0.0-0.2 X10*3/uL NRBC Abs Auto 0.000 0.0-0.012 X10*3/uL Comprehensive Clark. Panel Fa st Reviewed date:10/03/2024 01:39:40 PM Interpretation:Abnormal Performing Lab:[facility], [address] [place] [address] Notes/Report: Sodium 142 135-145 mmol/L Potassium 5.5 3.3-5.1 mmol/L Chloride 105 96-108 mmol/L Carbon Dioxide 26 22-29 mmol/L Anion Gap 17 12-20 Blood Urea Nitrogen 14 9-16 mg/dL Creatinine 1.24 0.5-1.4 mg/dL Estimated Glomerular Filt Rate 58 NOTE: For -Tajik individuals, multiply the result by 1.210. Chronic Kidney Disease: Estimated GFR < 60 mL/min/1.73m2 Severe Kidney Disease: Estimated GFR < 15 mL/min/1.73m2 Glucose Fasting 140 60-99 mg/dL A fasting glucose of 126 mg/dl or greater on more than one occasion is considered diagnostic of diabetes. Calcium 10.3 8.4-10.2 mg/dL Bilirubin Total 1.7 0.0-1.0 mg/dL Slight Icte harley. Aspartate Amino Transferase 35 5-37 U/L Alanine Aminotransferase 36 0-40 U/L Total Protein 7.5 6.5-8.0 g/dL Albumin Level 4.3 3.5-5.0 g/dL Alkaline Phosphatase 110 39-117 U/L Lipid Panel Reviewed date:10/03/2024 11:57:29 AM Interpretation:Abnormal Performing Lab:[facility], [address] [place] [phone] Notes/Report: Triglycerides 213 <150 mg/dL Desirable Triglyceride: less than 150 mg/dL Borderline High Triglyceride 150-199 mg/dL High Triglyceride: 200-499 mg/dL Very High Triglyceride: greater than or equal to 5OO mg/dL Cholesterol 136 <200 mg/dL Desirable Cholesterol: less than 200 mg/dL Borderline High Cholesterol: 200-239 mg/dL High Cholesterol: greater than 239 mg/dL LDL Cholesterol Calculated 50 <100 mg/dL Desirable LDL: less than 100 mg/dL Near Optimal/Above Optimal LDL: 110-129 mg/dL Borderline High LDL: 130-159 mg/dL High LDL: 160-189 mg/dL Very High LDL: greater than or equal to 190 mg/dL HDL Cholesterol 44 >40 mg/dL Desirable HDL: greater than 40 mg/dL Note: This HDL assay may give artificially low results in patients with liver disease. PSA,Total (Free>4and<10) Reviewed date:10/03/2024 11:57:29 AM Interpretation:Normal Performing Lab:[facility], [address] [place] [phone] Notes/Report: PSA,Total (Free>4and<10) 0.72 0.00-4.00 ng/mL A Free PSA was not performed: The percentage of Free PSA can be used to enhance the differentiation of prostate cancer from benign prostatic disease in subjects whose PSA levels are between 4.0 and 10.0 ng/mL. For subjects whose PSA levels are below 4.0 or above 10.0 ng/mL, the risk of prostate cancer is determined on the basis of the PSA alone. Therefore the % Free PSA is recommended only for those subjects whose PSA levels are between 4.0 and 10.0 ng/mL. PSA methodology: [facility] [employer] i Chemiluminescent Microparticle Immunoassay (CMIA) Hemoglobin A1c Reviewed date:10/03/2024 11:57:46 AM Interpretation:Stable Performing Lab:[facility], [address] [place] [phone] Notes/Report: Hemoglobin A1c % 6.1 <6.0 % Hemoglobin A1C Reference Range Adults: 4.8 - 6.0 % Non diabetic: < 6.0 % Goal: < 7.0 % Additional Action Suggested: > 8.0 % Note: Hemoglobin A1c results are invalid for patients with abnormal amounts of HbF. Blood transfusions may impact the HbA1c concentration in the patient sample. Estimated Average Glucose 128 eAG = Estimated average glucose which is %A1C expressed as average glucose, using the formula of the M3E-Knserai Average Glucose study (ADAG), Diabetes Care, Vol.31,#8, Jun. 2007 REASON FOR REFERRAL No Information MEDICATIONS Medication SIG (Take, Route, Frequency, Duration) Notes Start Date End Date Status Vitamin D 2000 UNIT 1 capsule Orally Onc e a day 08/15/2015 Active Accu-Chek SmartView Test strip as directed In Vitro Twice a week 08/15/2015 Active FreeStyle Lancets - as directed fingerst ick Twice a week Active Lisinopril 10 MG 1 tablet Orally Once a day Active Omeprazole 20 MG 1 capsule 30 minutes before morning meal Orally Once a day for 90 days Active Aspirin Adult Low Dose 81 MG 1 tablet Orally Once a day Active Atorvastatin Calcium 20 MG 1 tablet Oral ly Once a day Active IMMUNIZATIONS Vaccine Route Administration Date Status Comme nts Influenza Quad IM Intramuscular 08/08/2015 Administered Pneumococcal - PPSV23 IM Intramuscular 06/18/2016 Administ ered Influenza Quad IM Intramuscular 10/30/2016 Administered Influenza Quad IM Intramuscular 09/22/2018 Administered Influenza Quad IM Intramuscular 09/21/2019 Administered Influenza Quad IM Intramuscular 10/09/2020 Administered Influenza High Dose IM Intramuscular 09/19/2021 Administer ed Influenza Quad Unknown 09/09/2017 Administered COVID-19 Pfizer BioNTech Unknown 03/09/2021 Administere d Td Unknown 01/01/2017 Administered COVID-19 Pfizer BioNTech Unknown 02/15/2021 Administere d COVID-19 Pfizer [employer] Unknown 09/06/2021 Administere d Influenza Quad IM Intramuscular 11/11/2023 Administered SOCIAL HISTORY Tobacco Use: Social History Observation [...] W/U Status Risk SNOMED Code Notes Problem Vitamin D deficiency, unspecified (E55.9) Active confirmed Vitamin D deficiency (63817804) Problem Essential hypertension (I10) Active confirmed 78273734 Problem Type 2 diabetes mellitus without complication (E11.9) Active confirmed 43321034 Problem Olecranon bursitis of left elbow (M70.22) Active confirmed 025369622 Problem Tubular adenoma (D36.9) Active confirmed 873673604 Problem Cataract of left eye, unspecified cataract type (H26.9) Active confirmed 589063957 Problem Former smoker (Z87.891) Active confirmed 2611400 VITAL SIGNS Blood pressure diastolic 62 mm Hg 09/07/2024 Height 67 in 09/07/2024 Blood pressure systolic 138 mm Hg 09/07/2024 Weight 169 lbs 09/07/2024 BMI 26.47 kg/m2 09/07/2024 Encounters Encounter Location Date Provider Diagnosis Robbie Bruner DO, [address] [id number] 03/02/2024 Robbie Bruner Type 2 diabetes mellitus without complication E11.9 ; Essential hypertension I10 ; Vitamin D deficiency, unspecified E55.9 and Esophageal dysphagia R13.19 Robbie Bruner DO, [address] [id number] 09/07/2024 Robbie Bruner Type 2 diabetes mellitus without complication E11.9 ; Essential hypertension I10 ; Vitamin D deficiency, unspecified E55.9 and Prostate cancer screening Z12.5 Robbie Bruner DO, [address] [id number] 04/19/2024 Robbie Bruner DO, [address] [id number] 12/08/2023 Robbie Bruner Essential hypertension I10 Robbie Bruner DO, [address] [id number] 02/01/2024 Robbie Bruner DO, [address] [id number] 05/31/2024 Robbie Bruner Type 2 diabetes mellitus without complication E11.9 Robbie Bruner DO, [address] [id number] 10/05/2024 Robbie Bruner ASSESSMENTS Encounter Date Diagnosis Assessment Notes Treatment Notes Treatment Clinical Notes 03/02/2024 Essential hypertension (ICD-10 - I10) 03/02/2024 Type 2 diabetes mellitus without complication (ICD-10 - E11.9) 09/07/2024 Essential hypertension (ICD-10 - I10) 09/07/2024 Type 2 diabetes mellitus without complication (ICD-10 - E11.9) 12/08/2023 Essential hypertension (ICD-10 - I10) 05/31/2024 Type 2 diabetes mellitus without complication (ICD-10 - E11.9) 03/02/2024 Vitamin D deficiency, unspecified (ICD-10 - E55.9) 09/07/2024 Vitamin D deficiency, unspecified (ICD-10 - E55.9) 03/02/2024 Esophageal dysphagia (ICD-10 - R13.19) 09/07/2024 Prostate cancer screening (ICD-10 - Z12.5) PLAN OF TREATMENT Pending Test Test Name Order Date Urine Cytology 07/07/2023 XR BARIUM SWALLOW-ESOPHAGUS 11/11/2023 Insurance Providers Payer Name Payer Address Payer Phone Subscriber Number Group Number Insured Name Patient Relationship to Insured Coverage Start Date Coverage End Date [facility] [address] [place] [address] [id number] Carson Manzanares Self - patient is the insured MEDICAL (GENERAL) HISTORY Medical History History ICD Code hypertension type II diabetes mellitus, diet controll ed presently cholelithiasis renal lithiasis Olecranon bursitis of left elbow M70.22 Surgical History Surgery Date(Month/Year) deviated septum repair cholecystectomy, laparoscopic 11/2015 cataract-lens implants OU
--- OUTSIDE RECORDS SUMMARY | 2024-11-25 11:10 | XMS_ITS ---
Author Organization Robbie Bruner DO, [facility] Address [address], [place] [id number] Care Team Providers Care Lithographic Camera Operator Name Role Phone ZohrehRobbie andersen Primary Care Provider REASON FOR VISIT Refills MEDICATIONS Medication SIG (Take, Route, Frequency, Duration) Notes Start Date End Date Status Accu-Chek SmartView Test strip as directed In Vitro Twice a week for 100 days 08/15/2015 Active Encounters Encounter Location Date Provider Diagnosis [facility] Brun[facility] DO, [facility] [address], [place] [phone] 05/31/2024 Robbie Zohreh Type 2 diabetes mellitus without complication E11.9 ASSESSMENTS Encounter Date Diagnosis Assessment Notes Treatment Notes Treatment Clinical Notes 05/31/2024 Type 2 diabetes mellitus without complication (ICD-10 - E11.9) PLAN OF TREATMENT Medication Medication Name Sig Start Date Stop Date Notes Accu-Chek SmartView Test strip as direct ed In Vitro Twice a week for 100 days 08/15/2015
--- OUTSIDE RECORDS SUMMARY | 2024-11-25 11:10 | XMS_ITS | Patient Health Record ---
Author Organization [facility] Address [address] [place] [phone] Care Team Providers Care Mri Technician Name Role Phone Robbie Bruner DO Primary Care Provider Unavail able Robbie Singh Unavailable [phone] ALLERGIES Allergen (clinical drug ingredient) Drug/Non Drug Allergy documented on EMR Reaction Allergy Type Onset Date Status seasonal (uncoded) Unknown Allergy A ctive RESULTS Component Value Reference Range Notes Pathology Reviewed date:02/26/2024 07:05:04 PM Interpretation: Performing Lab:[facility], [address] [place] [phone] Notes/Report: REASON FOR REFERRAL No Information MEDICATIONS Medication SIG (Take, Route, Frequency, Duration) Notes Start Date End Date Status Omeprazole 20 MG Oral for 30 02/03/2024 Active Atorvastatin Calcium 10 MG 1 tablet Oral ly Once a day Active Lisinopril 5 MG 1 tablet Orally Once a day Active Vitamin D3 2000 UNIT 1 capsule Orally On ce a day Active IMMUNIZATIONS Vaccine Route Administration Date Status Comme nts Influenza Unknown 10/02/2021 Administered SOCIAL HISTORY Tobacco Use: Social History [...] W/U Status Risk SNOMED Code Notes Problem Encounter for screening for malignant neoplasm of colon (Z12.11) Active confirmed 389750417 Problem Pre-procedural examination (Z01.818) Active confirmed 295458567343013 Problem Hx of adenomatous colonic polyps (Z86.010) Active confirmed 613245360 Problem Preprocedural examination (Z01.818) Active confirmed 565575785893462 Problem Diverticulosis of colon (K57.30) Active confirmed Diverticulosi s of colon (580263558) Problem Dysphagia (R13.10) Active confirmed Dys phagia (18008866) Problem Abnormal barium swallow (R93.3) Active confirmed Barium swall ow abnormal (677934295) Problem Esophageal spasm (K22.4) Active confirmed Esophageal spas m (03921998) Problem Gastroesophageal reflux (K21.9) Active confirmed Esophageal re flux finding (759610116) Problem Chronic gastritis (K29.50) Active confirmed Chronic gastrit is (7869102) VITAL SIGNS Temperature 97.5 degrees Fahrenheit 02/04/2024 Blood pressure diastolic 00 mm Hg 02/26/2024 Height 68 in 02/26/2024 Blood pressure systolic 00 mm Hg 02/26/2024 Weight 170 lbs 02/26/2024 BMI 25.85 kg/m2 02/26/2024 Encounters Encounter Location Date Provider Diagnosis [facility] Outpatient [address] [place] [phone] 02/17/2024 Robbie Singh Gastroesophageal ref lux K21.9 ; Dysphagia R13.10 ; Hiatal hernia K44.9 ; Chronic gastritis K29.50 and Abnormal barium swallow R93.3 [facility] [address] [place] [phone] 02/04/2024 Robbie Singh Dysphagia R13.10 and Abnormal barium swallow R93.3 [facility] [address] [place] [phone] 02/26/2024 Robbie Singh Encounter for screen ing for malignant neoplasm of colon Z12.11 ; Dysphagia R13.10 ; Hx of adenomatous colonic polyps Z86.010 ; Abnormal barium swallow R93.3 and Esophageal spasm K22.4 [facility] [address] [place] [phone] 02/02/2024 Robbie Singh [facility] [address] [place] [phone] 02/22/2024 Robbie Singh ASSESSMENTS Encounter Date Diagnosis Assessment Notes Treatment Notes Treatment Clinical Notes 02/17/2024 Dysphagia (ICD-10 - R13.10) 02/17/2024 Gastroesophageal ref lux (ICD-10 - K21.9) 02/04/2024 Dysphagia (ICD-10 - R13.10) Stop aspirin for 3-5 days before the endoscopy 02/04/2024 Abnormal barium swal low (ICD-10 - R93.3) 02/26/2024 Encounter for screen ing for malignant neoplasm of colon (ICD-10 - Z12.11) Stop the omeprazole after you finish this month's supply and observe things. If symptoms relapse then go back on the omeprazole every other day or every day. Call me if problems persist. 02/26/2024 Dysphagia (ICD-10 - R13.10) 02/17/2024 Hiatal hernia (ICD-1 0 - K44.9) 02/26/2024 Hx of adenomatous colonic polyps (ICD-10 - Z86.010) 02/17/2024 Chronic gastritis (ICD-10 - K29.50) 02/26/2024 Abnormal barium swal low (ICD-10 - R93.3) 02/17/2024 Abnormal barium swal low (ICD-10 - R93.3) 02/26/2024 Esophageal spasm (ICD-10 - K22.4) PLAN OF TREATMENT Future Test Test Name Order Date COLONOSCOPY 05/05/2018 COLONOSCOPY 10/09/2021 UPPER GI ENDOSCOPY [place] DILATION OF ESOPH 02/04/2024 Insurance Providers Payer Name Payer Address Payer Phone Subscriber Number Group Number Insured Name Patient Relationship to Insured Coverage Start Date Coverage End Date [facility] [address] [place] [address] [phone] [id number] ARELI BHASKAR Self - patient is the insured MEDICAL (GENERAL) HISTORY Medical History History ICD Code Previous diabetes mellitus, but currentl y fine without medicines Hypertension Denies [place],CVA,Lung disease,renal disease Hyperlipidemia Screening colonosccopy 03/2018 with remov al of 6 tubular adenomas. Kidney stones Colonoscopy 10/2021 with small tubular a denomas EGD 01/2024 was done for eval uation of dysphagia and abnormal barium swallow. He was found to only have a minimal hiatal hernia, mild gastritis with biopsies negative for H. pylori, and no evidence of any significant esophageal disease. The gastroesophageal junction was dilated with a balloon up to 20 mm without any appreciable affect. The patient's dysphagia resolved after a course of omeprazole and stoppage of NSAIDs. Surgical History Surgery Date(Month/Year) Deviated septum repair 1976 Cholecystectomy 2016 Tendon repair-finger 2017 Left elbow bursa removed 2022
[2024-11-25 13:05] LABS: Anion Gap 15 (12-20); Blood Urea Nitrogen 16 mg/dL (9-16); Carbon Dioxide 28 mmol/L (22-29); Chloride 101 mmol/L (96-108); Estimated Glomerular Filt Rate > 60; Glucose Random 150 mg/dL (60-115); Potassium 4.9 mmol/L (3.3-5.1); Sodium 139 mmol/L (135-145)
== END 2024-11-25 11:01 | disposition home or self-care (01) ==
LOC: HO.LAB 11:00
PROVIDERS: PCP Internal Medicine; Visit Provider Internal Medicine
DX: E87.5 Hyperkalemia (principal)
CPT/HCPCS: 36415; 80048

== ENCOUNTER 2025-02-09 12:47 | Outpatient (REF) | payer OTHER, SELFPAY ==
--- NOTE | ~2025-02-09 | CT_ITS ---
EXAMINATION: CT LOW-DOSE SCREENING CHEST WITHOUT CONTRAST CLINICAL INFORMATION: 69-year-old male, history of smoking 30 pack years, quit 15 years ago. Lung cancer screening. COMPARISON: 02/08/2024. 12/26/2022. TECHNIQUE: Multidetector volumetric CT imaging of the chest is performed on a Siemens SOMATOM Definition scanner without contrast using low dose technique. Additional 2D coronal and sagittal reformatted images and axial 3D maximum intensity projection (MIP) images are generated on the CT workstation. This CT examination was performed using dose optimization techniques as appropriate, variously including the following: *Automated exposure control *Adjustment of mA and/or kV according to patient size (this includes techniques or standardized protocols for targeted exams where dose is matched to indication/reason for exam; i.e. extremities or head) *Use of iterative reconstruction technique FINDINGS: PULMONARY NODULES: -There are 2 tiny left lower lobe 2 mm fissural nodules, unchanged. These are likely intrapulmonary lymph nodes. -There is no new or enlarging pulmonary nodule. LUNGS: The lungs are clear bilaterally. There is no abnormal opacity or consolidation. No effusion or pneumothorax. The small airways appear normal. The central airways are patent MEDIASTINUM: No mediastinal, hilar or axillary adenopathy or free fluid collection. CORONARY ARTERY CALCIFICATION: Moderate. THYROID GLAND: Unremarkable to the extent seen. CARDIOVASCULAR STRUCTURES: The aorta and main pulmonary artery are normal in course and caliber. Cardiac size is normal. There are dense mitral annular calcifications. No pericardial effusion. CHEST WALL/AXILLA: There is mild left male gynecomastia. UPPER ABDOMEN: There has been a cholecystectomy. There are vascular calcifications. Remainder of the imaged upper abdominal contents are otherwise normal. OSSEOUS STRUCTURES: No suspicious focal findings. CT/CT lung screening IMPRESSION: 1. No change in 2 tiny fissural left lower lobe 2 mm nodules. No new or enlarging pulmonary nodule. 2. No active pulmonary disease. 3. Ancillary findings as discussed. ASSESSMENT: 1. Lung-RADS Category 2: Benign appearance or behavior of nodules. 2. Lung-RADS Category S: None. RECOMMENDATION: Continued routine annual low-dose CT lung screening in 1 year is recommended. An order for CT CHEST LOW DOSE CANCER SCREENING ([id number]) can be placed. Electronically signed by: Angel Leung MD 02/09/2025 02:27 PM EDT
--- OUTSIDE RECORDS SUMMARY | 2025-02-09 16:07 | XMS_ITS ---
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 Singh Encounters Encounter Location Date Provider Diagnosis [facility] [address] [place] [address] 02/22/2024 Robbie Singh Plan Of Treatment No Information Progress Notes * BHASKAR SINGLETON RDOB: [birth year] (68 yo M)Acc No.[id number]:02/22/2024 Patient:?BHASKAR SINGLETON :1955???Age:68 Y???Sex:Male Address:[address] [place] [phone] * true * Date:? Generated for Bro gutierrez/Yuan/eTransmitting on:?02/09/2025 04:07 PM EDT
--- OUTSIDE RECORDS SUMMARY | 2025-02-09 16:07 | XMS_ITS | Patient Health Record ---
Author Organization [facility] Address [address] [place] [phone] Care Team Providers Care Watch Engineer Name Role Phone Zohreh (RETIRED) Robbie JAIME Primary Care Provid er Unavailable Robbie Singh Unavailable [phone] Allergies Allergen (clinical drug ingredient) Drug/Non Drug Allergy documented on EMR Reaction Allergy Type Onset Date Status seasonal (uncoded) Unknown Allergy A ctive Results Component Value Reference Range Notes Pathology Reviewed date:02/26/2024 07:05:04 PM Interpretation: Performing Lab:[facility], [address] [place] [phone] Notes/Report: Name: Carson Manzanares/Sex: 68/M : 1955 Unit#: [id number] Attend Dr: Robbie Singh Re02/17/24 Status : [facility] Location: [facility] Disch: SPEC : [id number] RECD : 02/17/24 STATUS: MIKE MCGARRY NUM: [id number] BARON: 02/17/241205 [facility] DR: Robbie Singh ENTERED: 02/17/24- 42 SP TYPE: Surgical OTHR DR: Robbie Bruner DO ORDERED: HE Stain/3, Gross Micro L4, IHC, Special st. 2, H. pylori, AB/PAS Addendum Addendum 1 Entered: 02/22/24 H. pylori immunostai n is negative with appropriate control. Addendum Signed ____ __(signature on file) Tran Rani 02/22/241233 Diagnosis Gastric antrum, biop sy: Gastric antral mucosa with reactive changes and minimal chronic inactive gastritis; negative for intestinal metaplasia and dysplasia (see comment). Comment: H pylori im munostain pending; addendum to follow. Clinical History Pre-Op Dx: Dysphagia Post-Op Dx: Reflux, hiatal hernia Microscopic Description Microscopic sections reviewed. AB/PAS stain is negative for intestinal metaplasia. Control stains appropriately. Material Received Bx gastric antrum Gross Description Received in formalin labeled ?bx gastric antrum? are 3 soria-pink irregular and rectangular tissue fragments eac h measuring 0.3 cm, submitted in toto in a cassette labeled A. CEDS Special studies orde red and performed: Immunostain for H. pylori on A1; AB/PAS stains on A1. CONTINUED ON NEXT PAGE Name: Carson Manzanares ge/Sex: 68/M : 1955 Unit#: [id number] Attend Dr: Robbie Singh Re02/17/24 Status : [facility] Location: [facility] Disch: SPEC : [id number] RECD : 02/17/24-1235 STATUS: MIKE MCGARRY NUM: [id number] BARON: 02/17/24-1205 [facility] [address]: Robbie Singh ENTERED: 02/17/24-12 42 SP TYPE: Surgical OTHR DR: Robbie rBuner DO ORDERED: HE Stain/3, Gross Micro L4, IHC, Special st. 2, H. pylori, AB/PAS Copies To: Robbie Bruner DO [address] [place] [phone] Robbie Singh [address] [place] [address] [address] [place] [phone] Signed (si gnature on file) Tran Saravia 02/19/24 1146 END OF REPORT Reason For Referral No Information Medications Medication SIG (Take, Route, Frequency, Duration) Notes Start Date End Date Status Omeprazole 20 MG Oral for 30 02/03/2024 Active Atorvastatin Calcium 10 MG 1 tablet Oral ly Once a day Active Lisinopril 5 MG 1 tablet Orally Once a day Active Vitamin D3 2000 UNIT 1 capsule Orally On ce a day Active Immunizations Vaccine Route Administration Date Status Comme nts Influenza Unknown 10/02/2021 Administered Social History Tobacco Use: Social History Observation Description Date Details (start date - stop date) Former Smoker NA - NA Tobacco Use/Smoking Question Answer Notes Patient is a former smoker How long has it been since you last smoked? 5-10 years Alcohol Screen Question Answer Notes Did you have a drink containing alcohol in the p ast year? No Points 0 Interpretation Negative Section Notes: Nonsmoker since 2010; no alcohol Nonsmoker since 2010; no alcohol Nonsmoker since 2010; no alcohol Nonsmoker since 2010; no alcohol Problems Problem Type SNOMED Code ICD Code Onset Dates Problem Status W/U Status Risk Notes Problem 713527502 Encounter for screening for malignant neoplasm of colon (Z12.11) Active confirmed Problem Dysphagia (37324645) Dysphagia (R13.10) Active confirmed Problem 228332440891824 Preprocedural examination (Z01.818) Active confirmed Problem Esophageal spasm (09415995) Esophageal spasm (K22.4) Active confirmed Problem 357329468 Hx of adenomatou s colonic polyps (Z86.010) Active confirmed Problem Barium swallow abnormal (709096220) Abnormal barium swallow (R93.3) Active confirmed Problem 317656101045035 Pre-procedural examination (Z01.818) Active confirmed Problem Chronic gastritis (5196179) Chronic gastritis (K29.50) Active confirmed Problem Esophageal reflux finding (020663905) Gastroesophageal reflux (K21.9) Active confirmed Problem Diverticulosis of colon (669271856) Diverticulosis of colon (K57.30) Active confirmed Vital Signs Blood pressure diastolic 00 mm Hg 02/26/2024 Height 68 in 02/26/2024 Blood pressure systolic 00 mm Hg 02/26/2024 Weight 170 lbs 02/26/2024 BMI 25.85 kg/m2 02/26/2024 Encounters Encounter Location Date Provider Diagnosis [facility] [address] [place], [place] [phone] 02/17/2024 Robbie Singh Gastroesophageal ref lux K21.9 ; Dysphagia R13.10 ; Hiatal hernia K44.9 ; Chronic gastritis K29.50 and Abnormal barium swallow R93.3 [facility] [address] [place] [address] 02/26/2024 Robbie Singh Encounter for screen ing for malignant neoplasm of colon Z12.11 ; Dysphagia R13.10 ; Hx of adenomatous colonic polyps Z86.010 ; Abnormal barium swallow R93.3 and Esophageal spasm K22.4 [facility] [address] [facility] [address] [place] [phone] 02/22/2024 Robbie Singh Assessments Encounter Date Diagnosis (ICD Code) Assessment Notes Treatment Notes Treatment Clinical Notes Section Notes 02/17/2024 Dysphagia (ICD-10 - R13.10) 02/17/2024 Gastroesophageal reflux (ICD-10 - K21.9) 02/26/2024 Encounter for screening for malignant neoplasm of colon (ICD-10 - Z12.11) Stop the omeprazole after you finish this month's supply and observe things. If symptoms relapse then go back on the omeprazole every other day or every day. Call me if problems persist. Overall, Carson appears quite well. We did review the findings on his upper endoscopy in detail. Given his clinical history I suspect he was having a component of some esophageal spasm in relation to possible acid reflux and some NSAID-induced irritation. The fact that things improved after stoppage of the NSAIDs and initiation of omeprazole would tend to support that diagnosis. His normal upper endoscopy and continued resolution of his previous upper GI complaints would support that as well. At this point I don't think he needs to be on a chronic PPI. I recommended that he stop the omeprazole after he finishes his current supply and then observe things. If things remain stable and without any further symptoms then he would not need any acid suppression. However, if his dysphagia recurs I advised him that he could resume omeprazole either every other day or daily if need be. I did advise him to certainly call if things become more problematic and we can always have him undergo esophageal motility studies. However at this point I doubt that will be needed. We did review that he will be due for a colonoscopy for further screening in 2025. If things remain stable he would otherwise see me in the interim on a p.r.n. basis. Carson was comfortable with this plan. Thank you again for allowing me to participate in Carson's care. I shall continue to keep you advised of his progress. 02/26/2024 Dysphagia (ICD-10 - R13.10) Overall, Carson appears quite well. We did review the findings on his upper endoscopy in detail. Given his clinical history I suspect he was having a component of some esophageal spasm in relation to possible acid reflux and some NSAID-induced irritation. The fact that things improved after stoppage of the NSAIDs and initiation of omeprazole would tend to support that diagnosis. His normal upper endoscopy and continued resolution of his previous upper GI complaints would support that as well. At this point I don't think he needs to be on a chronic PPI. I recommended that he stop the omeprazole after he finishes his current supply and then observe things. If things remain stable and without any further symptoms then he would not need any acid suppression. However, if his dysphagia recurs I advised him that he could resume omeprazole either every other day or daily if need be. I did advise him to certainly call if things become more problematic and we can always have him undergo esophageal motility studies. However at this point I doubt that will be needed. We did review that he will be due for a colonoscopy for further screening in 2025. If things remain stable he would otherwise see me in the interim on a p.r.n. basis. Carson was comfortable with this plan. Thank you again for allowing me to participate in Carson's care. I shall continue to keep you advised of his progress. 02/17/2024 Hiatal hernia (ICD-10 - K44.9) 02/26/2024 Hx of adenomatous colonic polyps (ICD-10 - Z86.010) Overall, Carson appears quite well. We did review the findings on his upper endoscopy in detail. Given his clinical history I suspect he was having a component of some esophageal spasm in relation to possible acid reflux and some NSAID-induced irritation. The fact that things improved after stoppage of the NSAIDs and initiation of omeprazole would tend to support that diagnosis. His normal upper endoscopy and continued resolution of his previous upper GI complaints would support that as well. At this point I don't think he needs to be on a chronic PPI. I recommended that he stop the omeprazole after he finishes his current supply and then observe things. If things remain stable and without any further symptoms then he would not need any acid suppression. However, if his dysphagia recurs I advised him that he could resume omeprazole either every other day or daily if need be. I did advise him to certainly call if things become more problematic and we can always have him undergo esophageal motility studies. However at this point I doubt that will be needed. We did review that he will be due for a colonoscopy for further screening in 2025. If things remain stable he would otherwise see me in the interim on a p.r.n. basis. Carson was comfortable with this plan. Thank you again for allowing me to participate in Carson's care. I shall continue to keep you advised of his progress. 02/17/2024 Chronic gastritis (ICD-10 - K29.50) 02/26/2024 Abnormal barium swallow (ICD-10 - R93.3) Overall, Carson appears quite well. We did review the findings on his upper endoscopy in detail. Given his clinical history I suspect he was having a component of some esophageal spasm in relation to possible acid reflux and some NSAID-induced irritation. The fact that things improved after stoppage of the NSAIDs and initiation of omeprazole would tend to support that diagnosis. His normal upper endoscopy and continued resolution of his previous upper GI complaints would support that as well. At this point I don't think he needs to be on a chronic PPI. I recommended that he stop the omeprazole after he finishes his current supply and then observe things. If things remain stable and without any further symptoms then he would not need any acid suppression. However, if his dysphagia recurs I advised him that he could resume omeprazole either every other day or daily if need be. I did advise him to certainly call if things become more problematic and we can always have him undergo esophageal motility studies. However at this point I doubt that will be needed. We did review that he will be due for a colonoscopy for further screening in 2025. If things remain stable he would otherwise see me in the interim on a p.r.n. basis. Carson was comfortable with this plan. Thank you again for allowing me to participate in Carson's care. I shall continue to keep you advised of his progress. 02/17/2024 Abnormal barium swallow (ICD-10 - R93.3) 02/26/2024 Esophageal spasm (ICD-10 - K22.4) Overall, Carson appears quite well. We did review the findings on his upper endoscopy in detail. Given his clinical history I suspect he was having a component of some esophageal spasm in relation to possible acid reflux and some NSAID-induced irritation. The fact that things improved after stoppage of the NSAIDs and initiation of omeprazole would tend to support that diagnosis. His normal upper endoscopy and continued resolution of his previous upper GI complaints would support that as well. At this point I don't think he needs to be on a chronic PPI. I recommended that he stop the omeprazole after he finishes his current supply and then observe things. If things remain stable and without any further symptoms then he would not need any acid suppression. However, if his dysphagia recurs I advised him that he could resume omeprazole either every other day or daily if need be. I did advise him to certainly call if things become more problematic and we can always have him undergo esophageal motility studies. However at this point I doubt that will be needed. We did review that he will be due for a colonoscopy for further screening in 2025. If things remain stable he would otherwise see me in the interim on a p.r.n. basis. Carson was comfortable with this plan. Thank you again for allowing me to participate in Carson's care. I shall continue to keep you advised of his progress. Plan Of Treatment Future Test Test Name Order Date COLONOSCOPY 05/05/2018 COLONOSCOPY 10/09/2021 UPPER GI ENDOSCOPY [place] DILATION OF ESOPH 02/04/2024 Insurance Providers Payer Name Payer Address Payer Phone Subscriber Number Group Number Insured Name Patient Relationship to Insured Coverage Start Date Coverage End Date [facility] [address] [facility] [phone] [id number] CARSON MANZANARES Self - patient is the insured Medical (General) History Medical History History ICD Code Previous diabetes mellitus, but currentl y fine without medicines Hypertension Denies [place],CVA,Lung disease,renal disease Hyperlipidemia Screening colonosccopy 03/2018 with [...] Surgery Date(Month/Year) Deviated septum repair 1976 Cholecystectomy 2015 Tendon repair-finger 2017 Left elbow bursa removed 2022
--- OUTSIDE RECORDS SUMMARY | 2025-02-09 16:08 | XMS_ITS ---
Author Organization [facility] Address [address] [place] [address] Care Team Providers Care Landscape Foreman Name Role Phone Zohreh (RETIRED) Robbie JAIME Primary Care Provid er Unavailable Robbie Singh Unavailable [phone] Allergies Allergen (clinical drug ingredient) Drug/Non Drug Allergy documented on EMR Reaction Allergy Type Onset Date Status seasonal (uncoded) Unknown Allergy A ctive REASON FOR VISIT patient presents today for dysphagia Medications Medication SIG (Take, Route, Frequency, Duration) Notes Start Date End Date Status Omeprazole 20 MG Oral for 30 02/03/2024 Active Atorvastatin Calcium 10 MG 1 tablet Oral ly Once a day Active Lisinopril 5 MG 1 tablet Orally Once a day Active Vitamin D3 2000 UNIT 1 capsule Orally On ce a day Active Social History Tobacco Use: Social History Observation [...] Section Notes: Nonsmoker since 2010; no alcohol Problems Problem Type SNOMED Code ICD Code Onset Dates Problem Status W/U Status Risk Notes Problem Esophageal spasm (90777130) Esophageal spasm (K22.4) Active confirmed Vital Signs Blood pressure systolic 00 mm Hg 02/26/20 24 Blood pressure diastolic 00 mm Hg 024 Height 68 in 02/26/2024 Weight 170 lbs 02/26/2024 BMI 25.85 kg/m2 02/26/2024 Encounters Encounter Location Date Provider Diagnosis [facility] [address] [place] [address] 02/26/2024 Robbie Singh Encounter for screening for malignant neoplasm of colon Z12.11 ; Dysphagia R13.10 ; Hx of adenomatous colonic polyps Z86.010 ; Abnormal barium swallow R93.3 and Esophageal spasm K22.4 Assessments Encounter Date Diagnosis (ICD Code) Assessment Notes Treatment Notes Treatment Clinical Notes Section Notes 02/26/2024 Encounter for screening for malignant [...] keep you advised of his progress. 02/26/2024 Hx of adenomatous colonic polyps (ICD-10 [...] keep you advised of his progress. 02/26/2024 Abnormal barium swallow (ICD-10 - R93.3) [...] keep you advised of his progress. 02/26/2024 Esophageal spasm (ICD-10 - K22.4) Overall, [...] advised of his progress. Plan Of Treatment Treatment Notes Assessment Notes Encounter for screening for malignant neoplasm of colon Stop the omeprazole after you finish thi s month's supply and observe things. If symptoms relapse then go back on the omeprazole every other day or every day. Call me if problems persist. Next Appt Details Follow Up: prn, Reason: Progress Notes * CARSON SINGLETON RDOB: [birth year] (68 yo M)Acc No.[id number]:02/26/2024 Progress Notes Patient:?CARSON SINGLETON Provider:?Robbie Singh MD :1955???Age:68 Y???Sex:Male Juan Jose e:02/26/2024 Address:[address] [place] [address] Pcp:Robbie Bruner DO Subjective: * Chief Complaints: * ???Patient presents today fo r dysphagia * HPI: ???incontinence:? I saw Carson in followup today in regard to his previous dysphagia, abnormal barium swallow, and recent upper endoscopy. ?As you know, Carson had developed the onset of some dysphagia earlier this year with a barium swallow showing some narrowing at the gastroesophageal junction. At that time he had been on high-dose ibuprofen in relation to elbow surgery. After stopping the ibuprofen and start omeprazole his upper GI complaints all resolved and he was eating comfortably. His upper endoscopy done last week did not show any significant esophageal pathology and only showed a minimal hiatal hernia, as well as some mild gastritis. Gastric biopsies were negative for H. pylori. A large balloon was used to dilate the gastroesophageal junction but the area appeared normal without any sign of a stricture nor ring. ?Since the procedure last week he has continued to feel well on his daily omeprazole and off all NSAIDs. He is eating comfortably and denies any dysphagia, heartburn, nausea, vomiting, nor early satiety. His bowel movements have been regular and he has not noticed any bleeding. He denies any abdominal pain or jaundice. * ROS:?General/Constitutional:?Change in appetite?denies.?Chills?denies.?Fatigue?denies.?Ophthalmologic:?Comments?all negative.?ENT:?Comments?all negative.?Respiratory:?hemoptysis?denies.?Cough?denies.?Cardiovascular:?Chest pain?denies.?Orthopnea?denies.?Gastrointestinal:?Comments?See HPI for details.?Genitourinary:?Hematuria?denies.?Dysuria?denies.?Musculoskeletal:?Painful joints?denies.?Weakness?denies.?Skin:?Itching?denies.?Rash?denies.?Neurologic:?Headache?denies.?Seizures?denies.?Psychiatric:?Comments?all negative.? * Medical History:? * Surgical History:?Deviated s eptum repair 1977Cholecystectomy 2016Tendon repair- finger 2017Left elbow bursa removed 2022 * Hospitalization/Major Diagno stic Procedure:?No Hospitalization History. * Family History:?Father: dece ased, diagnosed with HTN (hypertension), Diabetes.?Mother: alive.? No colorectal cancer. * Social History:?Tobacco Use:?Tobacco Use/Smoking?Patient is a?former smoker,?How long has it been since you last smoked??5-10 years.?Drugs/Alcohol:?Alcohol Screen?Did you have a drink containing alcohol in the past year??No,?Points?0,?Interpretation?Negative.?Miscellaneous:?Marital status: Single. 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 ???Nonsmoker since 2010; no alcohol. * Medications:?TakingAtorvasta tin Calcium 10 MG Tablet 1 tablet Orally Once a dayLisinopril 5 MG Tablet 1 tablet Orally Once a dayVitamin D3 2000 UNIT Capsule 1 capsule Orally Once a dayOmeprazole 20 MG Capsule Delayed Release Oral Taking Atorvastatin Calcium 10 MG Tablet 1 tablet Orally Once a dayTaking Lisinopril 5 MG Tablet 1 tablet Orally Once a dayTaking Vitamin D3 2000 UNIT Capsule 1 capsule Orally Once a dayTaking Omeprazole 20 MG Capsule Delayed Release Oral DiscontinuedAspirin 81 81 MG Tablet Delayed Release 1 tablet Orally Once a dayMedication List reviewed and reconciled with the patientDiscontinued Aspirin 81 81 MG Tablet Delayed Release 1 tablet Orally Once a dayMedication List reviewed and reconciled with the patient * Allergies:?seasonalyes[Aller gies Verified] Objective: * Vitals:?Wt: 170 lbs, Ht: 68 in, BMI:25.85 Index, BP: 00/00 mm Hg. * Examination: ???General Examination: ?GENERAL APPEARANCE:?pleasant, well nourished, well developed, in no acute distress.?EYES:?sclera non-icteric.?ORAL CAVITY:?mucosa moist.?NECK/THYROID:?no cervical lymphadenopathy, neck supple.?SKIN:?nonjaundiced, no spider angiomata.?HEART:?S1, S2 normal.?LUNGS:?clear to auscultation bilaterally.?ABDOMEN:?normal bowel sounds, no guarding or rigidity, no guarding or rigidity, no masses palpable, soft, nontender, nondistended.?EXTREMITIES:?no edema.?NEUROLOGIC:?alert and oriented.? Assessment: * Assessment: 1.?Dysphagia - R13.10 (Prima ry)?2.?Encounter for screening for malignant neoplasm of colon - Z12.11?3.?Hx of adenomatous colonic polyps - Z86.010?4.?Abnormal barium swallow - R93.3?5.?Esophageal spasm - K22.4? Overall, Carson appears jayy te well. We did review the findings on his upper endoscopy in detail. Given his clinical history I suspect he was having a component of some esophageal spasm in relation to possible acid reflux and some NSAID- induced irritation. The fact that things improved after [...] to keep you advised of his progress. Plan: * Treatment: * Procedure Codes:?3017F COLOR ECTAL CA SCREEN DOC [id number] TOBACCO NON-OGCXT7839 BP SCR NOT PRFRM REC REASON NOS * Preventive Medicine:? ??Counseling:?Care goal follow-up plan:?Above Normal BMI Follow-up?Giving encouragement to exercise,?BMI management provided?Yes.? * Follow Up:?prn * * Sign off status: Completed true * Provider:?Robbie Singh MD Date:? 024 Generated for Bro gutierrez/Yuan/Sereneitting on:?02/09/2025 04:07 PM EDT History and Physical Notes * HPI (History of Present Illness) Category Sub-Category Detail Notes Category Not es incontinence I saw Carson in followup today in regard to his previous dysphagia, abnormal barium swallow, and recent upper endoscopy. As you know, Carson had developed the onset of some dysphagia earlier this year with a barium swallow showing some narrowing at the gastroesophageal junction. At that time he had been on high-dose ibuprofen in relation to elbow surgery. After stopping the ibuprofen and start omeprazole his upper GI complaints all resolved and he was eating comfortably. His upper endoscopy done last week did not show any significant esophageal pathology and only showed a minimal hiatal hernia, as well as some mild gastritis. Gastric biopsies were negative for H. pylori. A large balloon was used to dilate the gastroesophageal junction but the area appeared normal without any sign of a stricture nor ring. Since the procedure last week he has continued to feel well on his daily omeprazole and off all NSAIDs. He is eating comfortably and denies any dysphagia, heartburn, nausea, vomiting, nor early satiety. His bowel movements have been regular and he has not noticed any bleeding. He denies any abdominal pain or jaundice. Examination Category Sub-Category Detail Notes Category Not es General Examination GENERAL APPEARANCE: pleasant , well [...]
--- OUTSIDE RECORDS SUMMARY | 2025-02-09 16:08 | XMS_ITS ---
Author Organization [facility] Address [address] [place] [address] Care Team Providers Care Social Worker Assistant Name Role Phone Zohreh (RETIRED) Robbie JAIME Primary Care Provid er Unavailable Robbie Singh Unavailable [phone] REASON FOR VISIT abn barium swallow, dysphagia, Problems Problem Type SNOMED Code ICD Code Onset Dates Problem Status W/U Status Risk Notes Problem Esophageal reflux finding (815401665) Gastroesophageal reflux (K21.9) Active confirmed Problem Chronic gastritis (2436267) Chronic gastritis (K29.50) Active confirmed Encounters Encounter Location Date Provider Diagnosis [facility] Outpatient [address] [employer], [place] [id number] 02/17/2024 Robbie Singh Gastroesophageal ref lux K21.9 ; Dysphagia R13.10 ; Hiatal hernia K44.9 ; Chronic gastritis K29.50 and Abnormal barium swallow R93.3 Assessments Encounter Date Diagnosis (ICD Code) Assessment Notes Treatment Notes Treatment Clinical Notes Section Notes 02/17/2024 Gastroesophageal reflux (ICD-10 - K21.9) 02/17/2024 Dysphagia (ICD-10 - R13.10) 02/17/2024 Hiatal hernia (ICD-10 - K44.9) 02/17/2024 Chronic gastritis (ICD-10 - K29.50) 02/17/2024 Abnormal barium swallow (ICD-10 - R93.3) Plan Of Treatment No Information Progress Notes * BHASKAR SINGLETON RDOB: [birth year] (69 yo M)Acc No.[id number]:02/17/2024 EGD/MAC Patient:?BHASKAR SINGLETON Provider:?Robbie Singh MD :1955???Age:68 Y???Sex:Male Juan Jose e:02/17/2024 Address:[address] [place], [place] [id number] Pcp:Robbie Bruner (RETIRE D), DO Subjective: * Chief Complaints: * ???1. Abn barium swallow, dy sphagia,. * Medical History:? Objective: * Vitals:? Assessment: * Assessment: 1.?Gastroesophageal reflux - K21.9 (Primary)???2.?Dysphagia - R13.10???3.?Hiatal hernia - K44.9???4.?Chronic gastritis - K29.50???5.?Abnormal barium swallow - R93.3??? Plan: * Treatment: * Procedure Codes:?86957 ESOPH ENDOSCOPY, DILATION, 71196 UPPER GI ENDOSCOPY, BIOPSY, Modifiers: 59 * * The named appointment provid er may or may not be the originator of this progress note, and it is not deemed complete until electronically signed by the appointment provider. Sign off status: Pending * Provider:?Robbie Singh MD Date:? 024 Generated for Bro gutierrez/Yuan/eTransmitting on:?02/09/2025 04:07 PM EDT
== END 2025-02-09 12:48 | disposition home or self-care (01) ==
LOC: HO.CT 12:47
PROVIDERS: PCP Internal Medicine; Visit Provider Physician Assistant Medical
DX: Z12.2 Encounter for screening for malignant neoplasm of respiratory organs (principal); Z87.891 Personal history of nicotine dependence
CPT/HCPCS: 71271

== ENCOUNTER → 2025-02-09 12:49 | Outpatient (BNV) | payer OTHER, SELFPAY | PROVIDERS: PCP Internal Medicine; Visit Provider Radiology Diagnostic Radiology | DX: Z87.891 Personal history of nicotine dependence (principal) | CPT/HCPCS: 71271 ==

== ENCOUNTER 2025-02-28 07:52 | Outpatient (REF) | payer OTHER, SELFPAY ==
--- OUTSIDE RECORDS SUMMARY | 2025-02-28 07:55 | XMS_ITS | Patient Health Record ---
Author Organization [facility] Address [address] [place] [address] Care Team Providers Care Surface Grinding Machine Hand Name Role Phone Zohreh (RETIRED) Robbie JAIME Primary Care Provid er Unavailable Robbie Singh Unavailable [phone] Allergies Allergen (clinical drug ingredient) Drug/Non Drug Allergy documented on EMR Reaction Allergy Type Onset Date Status seasonal (uncoded) Unknown Allergy A ctive Reason For Referral No Information Medications Medication [...] 0 Interpretation Negative Section Notes: Nonsmoker since approx 2010; no alcohol Nonsmoker since approx 2010; no alcohol Nonsmoker since approx 2010; no alcohol Nonsmoker since approx 2010; no alcohol Problems Problem Type SNOMED Code ICD Code Onset Dates Problem Status W/U Status Risk Notes Problem [id number] Encounter for screening for malignant neoplasm of colon (Z12.11) Active confirmed Problem Dysphagia (30564042) Dysphagia (R13.10) Active confirmed Problem 722513013034522 Preprocedural examination (Z01.818) Active confirmed Problem Esophageal spasm (52076599) Esophageal spasm (K22.4) Active confirmed Problem 316308485 Hx of adenomatou s colonic polyps (Z86.010) Active confirmed Problem Barium swallow abnormal (430471084) Abnormal barium swallow (R93.3) Active confirmed Problem 482169973974630 Pre-procedural examination (Z01.818) Active confirmed Problem Chronic gastritis (3571094) Chronic gastritis (K29.50) Active confirmed Problem Esophageal reflux finding (690635983) Gastroesophageal reflux (K21.9) Active confirmed Problem Diverticulosis of colon (047177578) Diverticulosis of colon (K57.30) Active confirmed Plan Of Treatment Future Test Test Name Order Date COLONOSCOPY 05/05/2018 COLONOSCOPY 10/09/2021 UPPER GI ENDOSCOPY [place] DILATION OF ESOPH 02/04/2024 Insurance Providers Payer Name Payer Address Payer Phone Subscriber Number Group Number Insured Name Patient Relationship to Insured Coverage Start Date Coverage End Date [facility] [address] [place] [phone] [id number] BHASKAR SINGLETON Self - patient is the insured Medical (General) History Medical History History ICD Code Previous diabetes mellitus, but currentl y fine without medicines Hypertension Denies [place],CVA,Lung disease,renal disease Hyperlipidemia Screening colonosccopy 03/2018 with [...]
--- OUTSIDE RECORDS SUMMARY | 2025-02-28 07:55 | XMS_ITS ---
Author Organization [facility] Address [address] [place] [address] Care Team Providers Care Tool Grinder Operator Surface Name Role Phone Zohreh (RETIRED) Robbie JAIME Primary Care Provid er Unavailable Robbie Singh Unavailable [phone] REASON FOR VISIT abn barium swallow, dysphagia, Problems Problem Type SNOMED Code ICD Code Onset Dates Problem Status W/U Status Risk Notes Problem Esophageal reflux finding (321570673) Gastroesophageal reflux (K21.9) Active confirmed Problem Chronic gastritis (2150072) Chronic gastritis (K29.50) Active confirmed Encounters Encounter Location Date Provider Diagnosis [facility] Outpatient [address] [place], [place] [phone] 02/17/2024 Robbie Singh Gastroesophageal ref lux K21.9 [...] BHASKAR SINGLETON RDOB: [birth year] (69 yo M)Acc No.[id number]:02/17/2024 EGD/MAC Patient:?BHASKAR SINGLETON Provider:?Robbie Singh MD :1955???Age:68 Y???Sex:Male Juan Jose e:02/17/2024 Address:[address] [place], [place] [id number] Pcp:Robbie Bruner (RETIRE D), DO Subjective: * Chief Complaints: * ???1. Abn barium swallow, dy sphagia,. * Medical History:? Objective: * Vitals:? Assessment: * Assessment: 1.?Gastroesophageal reflux - K21.9 (Primary)???2.?Dysphagia - R13.10???3.?Hiatal hernia - K44.9???4.?Chronic gastritis - K29.50???5.?Abnormal barium swallow - R93.3??? Plan: * Treatment: * Procedure Codes:?48825 ESOPH ENDOSCOPY, DILATION, 90872 UPPER GI ENDOSCOPY, BIOPSY, Modifiers: 59 * * The named appointment provid er may or may not be the originator of this progress note, and it is not deemed complete until electronically signed by the appointment provider. Sign off status: Pending * Provider:?Robbie Singh MD Date:? 024 Generated for Bro gutierrez/Yuan/eTransmitting on:?02/28/2025 07:55 AM EDT
--- OUTSIDE RECORDS SUMMARY | 2025-02-28 07:55 | XMS_ITS ---
Author Organization [facility] Address [address] [place] [address] Care Team Providers Care Magnetic Resonance Imaging Coordinator Name Role Phone Zohreh (RETIRED) Robbie JAIME Primary Care Provid er Unavailable Robbie Singh Unavailable [phone] Allergies Allergen (clinical drug ingredient) Drug/Non Drug [...] W/U Status Risk Notes Problem Esophageal spasm (57742012) Esophageal spasm (K22.4) Active confirmed Vital Signs Blood pressure systolic 00 mm Hg 02/26/20 24 Blood pressure diastolic 00 mm Hg 024 Height 68 in 02/26/2024 Weight 170 lbs 02/26/2024 BMI 25.85 kg/m2 02/26/2024 Encounters Encounter Location Date Provider Diagnosis [facility] [address] [place] [address] 02/26/2024 Robbie Singh Encounter for screening for [...] CARSON SINGLETON RDOB: [birth year] (68 yo M)Acc No.[id number]:02/26/2024 Progress Notes Patient:?CARSON SINGLETON Provider:?Robbie Singh MD :1955???Age:68 Y???Sex:Male Juan Jose e:02/26/2024 Address:[address] [place] [address] Pcp:Robbie Bruner DO Subjective: * Chief Complaints: [...] in the past year??No,?Points?0,?Interpretation?Negative.?Miscellaneous:?Marital status: Single. 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 ???Nonsmoker since 2010; no alcohol. * [...] Procedure Codes:?3017F COLOR ECTAL CA SCREEN DOC XMT8743L TOBACCO NON-RFWWH2490 BP SCR NOT PRFRM REC REASON NOS * Preventive Medicine:? ??Counseling:?Care goal follow-up plan:?Above Normal BMI Follow-up?Giving encouragement to exercise,?BMI management provided?Yes.? * Follow Up:?prn * * Sign off status: Completed true * Provider:?Robbie Singh MD Date:? 024 Generated for Bro gutierrez/Yuan/Sereneitting on:?02/28/2025 07:55 AM EDT History and Physical Notes * HPI [...]
--- OUTSIDE RECORDS SUMMARY | 2025-02-28 07:55 | XMS_ITS ---
Author Organization [facility] Address [address] [place] [address] Care Team Providers Care Correctional Lieutenant Name Role Phone Zohreh (RETIRED) Robbie JAIME Primary Care Provid er Unavailable Robbie Singh Unavailable [phone] REASON FOR VISIT please schedule ov with Dr. Singh Encounters Encounter Location Date Provider Diagnosis [facility] [address] [place] [address] 02/22/2024 Robbie Singh Plan Of Treatment No Information Progress Notes * BHASKAR SINGLETON RDOB: [birth year] (68 yo M)Acc No.[id number]:02/22/2024 Patient:?BHASKAR SINGLETON :1955???Age:68 Y???Sex:Male Address:[address] [place] [address] * true * Date:? Generated for Bro gutierrez/Yuan/eTransmitting on:?02/28/2025 07:55 AM EDT
[2025-02-28 08:09] LABS: MANUAL DIFF FLAG NO
[2025-02-28 08:46] LABS: Basophils Absolute Auto 0.1 X10*3/uL (0.0-0.2); Basophils Percent Auto 1.6 % (0-2); Eosinophils Absolute Auto 0.1 X10*3/uL (0.0-0.4); Eosinophils Percent Auto 2.3 % (0-4); Hematocrit 43.7 % (42.0-52.0); Hemoglobin 15.8 g/dl (14.0-18.0); Imm Gran Abs Auto 0.03 X10*3/uL (0.00-0.03); Imm Gran Pct Auto 0.7 % (0.0-0.4); Lymphocytes Absolute Auto 1.1 X10*3/uL (1.2-4.9); Lymphocytes Percent Auto 24.1 % (20-40); Mean Corpuscular HGB Conc 36.2 g/dl (31.0-36.0); Mean Corpuscular Hemoglobin 32.2 pg (27.0-33.0); Mean Corpuscular Volume 89.2 fL (80.0-98.0); Mean Platelet Volume 10.7 fL (9.4-12.4); Monocytes Absolute Auto 0.4 X10*3/uL (0.1-1.2); Monocytes Percent Auto 9.1 % (2-11); Neutrophils Absolute Auto 2.7 x10*3/uL (2.0-8.3); Neutrophils Percent Auto 62.2 % (45-73); Platelet Count 185 X10*3/uL (160-400); Red Cell Distribution Width 12.6 % (11.0-16.0); White Blood Count 4.4 X10*3/uL (4.8-10.8)
[2025-02-28 08:59] LABS: Estimated Average Glucose 134 mg/dL; Hemoglobin A1C 183.1985 umol/L; Hemoglobin A1c % 6.3 % (<6.0); Total Hemoglobin (HGBA1C) 4062.5541 umol/L
[2025-02-28 09:28] LABS: Alanine Aminotransferase 37 U/L (0-40); Albumin Level 4.2 g/dL (3.5-5.0); Alkaline Phosphatase 94 U/L (39-117); Anion Gap 11 (12-20); Aspartate Amino Transferase 34 U/L (5-37); Bilirubin Direct 0.5 mg/dL (0.0-0.5); Bilirubin Total 1.3 mg/dL (0.0-1.0); Blood Urea Nitrogen 12 mg/dL (9-16); C Reactive Protein 0.28 mg/dL (< or = 0.50); Calcium 9.7 mg/dL (8.4-10.2); Carbon Dioxide 27 mmol/L (22-29); Chloride 108 mmol/L (96-108); Cholesterol 118 mg/dL (<200); Estimated Glomerular Filt Rate 58; Glucose Fasting 132 mg/dL (60-99); HDL Cholesterol 42 mg/dL (>40); LDL Cholesterol Calculated 52 mg/dL (<100); Magnesium 1.9 mg/dL (1.6-2.6); Potassium 4.5 mmol/L (3.3-5.1); Sodium 141 mmol/L (135-145); Total Protein 7.3 g/dL (6.5-8.0); Triglycerides 124 mg/dL (<150)
[2025-02-28 09:45] LABS: TSH reflex Free T4 1.33 uIU/mL (0.32-4.0); Vitamin D 25-OH Total 33.7 ng/mL (>30)
[2025-02-28 10:40] LABS: Folate 12.5 ng/mL (> or = 4.0); Vitamin B12 > 2000 pg/mL (200-900)
== END 2025-02-28 07:53 | disposition home or self-care (01) ==
LOC: HO.LAB 07:52
PROVIDERS: PCP Physician Assistant Medical; Visit Provider Physician Assistant Medical
DX: Z00.00 Encounter for general adult medical examination without abnormal findings (principal); Z13.1 Encounter for screening for diabetes mellitus; Z13.220 Encounter for screening for lipoid disorders; Z13.0 Encounter for screening for diseases of the blood and blood-forming organs and certain disorders involving the immune mechanism; Z13.29 Encounter for screening for other suspected endocrine disorder
CPT/HCPCS: 36415; 80053; 80061; 80076; 82248; 82306; 82607; 82746; 83036; 83735; 84443; 85025; 86140

== ENCOUNTER 2025-03-07 13:53 | Outpatient (AMB) | payer OTHER, SELFPAY ==
[2025-03-07 13:54] VITALS: BP 152/70; PULSE 88; RESP 14; TEMP 36.6; O2SAT 96; BMI 27.2
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
--- OUTSIDE RECORDS SUMMARY | 2025-03-07 16:58 | XMS_ITS | Patient Health Record ---
Author Organization [facility] Address [address] [place] [address] Care Team Providers Care Dough Raiser Name Role Phone Zohreh (RETIRED) Robbie JAIME Primary Care Provid er Unavailable Robbie Singh Unavailable [phone] Allergies Allergen (clinical drug ingredient) Drug/Non Drug [...] Problem Status W/U Status Risk Notes Problem 783142159 Encounter for screening for malignant neoplasm of colon (Z12.11) Active confirmed Problem Dysphagia (99161244) Dysphagia (R13.10) Active confirmed Problem [id number] Preprocedural examination (Z01.818) Active confirmed Problem Esophageal spasm (35512851) Esophageal spasm (K22.4) Active confirmed Problem 858886098 Hx of adenomatou s colonic polyps (Z86.010) Active confirmed Problem Barium swallow abnormal (343869248) Abnormal barium swallow (R93.3) Active confirmed Problem 139647531251257 Pre-procedural examination (Z01.818) Active confirmed Problem Chronic gastritis (6141676) Chronic gastritis (K29.50) Active confirmed Problem Esophageal reflux finding (060202607) Gastroesophageal reflux (K21.9) Active confirmed Problem Diverticulosis of colon (169265967) Diverticulosis of colon (K57.30) Active confirmed Plan Of Treatment Future Test Test Name Order Date COLONOSCOPY 05/05/2018 COLONOSCOPY 10/09/2021 UPPER GI ENDOSCOPY [place] DILATION OF ESOPH 02/04/2024 Insurance Providers Payer Name Payer Address Payer Phone Subscriber Number Group Number Insured Name Patient Relationship to Insured Coverage Start Date Coverage End Date [facility] [address] [place] [phone] [id number] BHASKAR SINGLETON Self - patient is the insured Medical (General) History Medical History History ICD Code Previous diabetes mellitus, but currentl y fine without medicines Hypertension Denies [place],CVA,Lung disease,renal disease Hyperlipidemia Screening colonosccopy 03/2018 with [...]
--- OUTSIDE RECORDS SUMMARY | 2025-03-07 16:59 | XMS_ITS ---
Author Organization [facility] Address [address] [place] [address] Care Team Providers Care Credit Union Manager Name Role Phone Zohreh (RETIRED) Robbie JAIME Primary Care Provid er Unavailable Robbie Singh Unavailable [phone] REASON FOR VISIT abn barium swallow, dysphagia, Problems Problem Type SNOMED Code ICD Code Onset Dates Problem Status W/U Status Risk Notes Problem Esophageal reflux finding (412831377) Gastroesophageal reflux (K21.9) Active confirmed Problem Chronic gastritis (6384481) Chronic gastritis (K29.50) Active confirmed Encounters Encounter Location Date Provider [place] [facility] [place] [facility] [address] [id number] 02/17/2024 Robbie Singh Gastroesophageal ref lux K21.9 [...] BHASKAR SINGLETON RDOB: [birth year] (69 yo M)Acc No.[id number]:02/17/2024 EGD/MAC Patient:?BHASKAR SINGLETON Provider:?Robbie Singh MD :1955???Age:68 Y???Sex:Male Juan Jose e:02/17/2024 Address:[address] [place], [place] [id number] Pcp:Robbie Bruner (RETIRE D), DO Subjective: * Chief Complaints: * ???1. Abn barium swallow, dy sphagia,. * Medical History:? Objective: * Vitals:? Assessment: * Assessment: 1.?Gastroesophageal reflux - K21.9 (Primary)???2.?Dysphagia - R13.10???3.?Hiatal hernia - K44.9???4.?Chronic gastritis - K29.50???5.?Abnormal barium swallow - R93.3??? Plan: * Treatment: * Procedure Codes:?37868 ESOPH ENDOSCOPY, DILATION, 93167 UPPER GI ENDOSCOPY, BIOPSY, Modifiers: 59 * * The named appointment provid er may or may not be the originator of this progress note, and it is not deemed complete until electronically signed by the appointment provider. Sign off status: Pending * Provider:?Robbie Singh MD Date:? 024 Generated for Bro gutierrez/Yuan/eTransmitting on:?03/07/2025 04:59 PM EDT
--- OUTSIDE RECORDS SUMMARY | 2025-03-07 16:59 | XMS_ITS ---
Author Organization [facility] Address [address] [place] [address] Care Team Providers Care Truck Repair Service Estimator Name Role Phone Zohreh (RETIRED) Robbie JAIME Primary Care Provid er Unavailable Robbie Singh Unavailable [phone] Allergies Allergen (clinical drug ingredient) Drug/Non Drug [...] W/U Status Risk Notes Problem Esophageal spasm (87814372) Esophageal spasm (K22.4) Active confirmed Vital Signs Blood pressure systolic 00 mm Hg 02/26/20 24 Blood pressure diastolic 00 mm Hg 024 Height 68 in 02/26/2024 Weight 170 lbs 02/26/2024 BMI 25.85 kg/m2 02/26/2024 Encounters Encounter Location Date Provider Diagnosis [facility] [address] [place] [address] 02/26/2024 Robbie Singh Encounter for screening for [...] CARSON SINGLETON RDOB: [birth year] (68 yo M)Acc No.[id number]:02/26/2024 Progress Notes Patient:?CARSON SINGLETON Provider:?Robbie Singh MD :1955???Age:68 Y???Sex:Male Juan Jose e:02/26/2024 Address:[address] [place] [address] Pcp:Robbie Bruner DO Subjective: * Chief Complaints: [...] in the past year??No,?Points?0,?Interpretation?Negative.?Miscellaneous:?Marital status: Single. 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 ???Nonsmoker since 2010; no alcohol. * Medications:?TakingAtorvasta [...] Procedure Codes:?3017F COLOR ECTAL CA SCREEN DOC UDS9146P TOBACCO NON-OGUWF6482 BP SCR NOT PRFRM REC REASON NOS * Preventive Medicine:? ??Counseling:?Care goal follow-up plan:?Above Normal BMI Follow-up?Giving encouragement to exercise,?BMI management provided?Yes.? * Follow Up:?prn * * Sign off status: Completed true * Provider:?Robbie Singh MD Date:? 024 Generated for Bro gutierrez/Yuan/Sereneitting on:?03/07/2025 04:59 PM EDT History and Physical Notes * [...]
--- OUTSIDE RECORDS SUMMARY | 2025-03-07 16:59 | XMS_ITS ---
Author Organization [facility] Address [address] [place] [address] Care Team Providers Care Relief Pharmacist Name Role Phone Zohreh (RETIRED) Robbie JAIME Primary Care Provid er Unavailable Robbie Singh Unavailable [phone] REASON FOR VISIT please schedule ov with Dr. Singh Encounters Encounter Location Date Provider Diagnosis [facility] [address] [place] [address] 02/22/2024 Robbie Singh Plan Of Treatment No Information Progress Notes * BHASKAR SINGLETON RDOB: [birth year] (68 yo M)Acc No.[id number]:02/22/2024 Patient:?BHASKAR SINGLETON :1955???Age:68 Y???Sex:Male Address:[address] [place] [address] * true * Date:? Generated for Bro gutierrez/Yuan/eTransmitting on:?03/07/2025 04:58 PM EDT
== END 2025-03-07 15:08 | disposition home or self-care (01) ==
LOC: HO.HMCSH 13:53
PROVIDERS: PCP Physician Assistant Medical; Visit Provider Internal Medicine
DX: I10 Essential (primary) hypertension (principal); J30.9 Allergic rhinitis, unspecified

== ENCOUNTER → 2025-03-07 13:53 | Outpatient (BNVA) | payer OTHER, SELFPAY | PROVIDERS: PCP Physician Assistant Medical; Visit Provider Internal Medicine ==

== ENCOUNTER 2025-09-05 14:54 | Outpatient (AMB) | payer OTHER, SELFPAY ==
[2025-09-05 14:49] VITALS: BP 146/69; PULSE 95; RESP 16; TEMP 36.4; O2SAT 95; BMI 26.8
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
== END 2025-09-05 15:29 | disposition home or self-care (01) ==
LOC: HO.HMCSH 14:54
PROVIDERS: PCP Physician Assistant Medical; Visit Provider Physician Assistant Medical
DX: R73.03 Prediabetes (principal); I12.9 Hypertensive chronic kidney disease with stage 1 through stage 4 chronic kidney disease, or unspecified chronic kidney disease; R79.89 Other specified abnormal findings of blood chemistry; N18.9 Chronic kidney disease, unspecified; R17 Unspecified jaundice; E87.5 Hyperkalemia

== ENCOUNTER → 2025-09-05 14:54 | Outpatient (BNVA) | payer OTHER, SELFPAY | PROVIDERS: PCP Physician Assistant Medical; Visit Provider Physician Assistant Medical | DX: I12.9 Hypertensive chronic kidney disease with stage 1 through stage 4 chronic kidney disease, or unspecified chronic kidney disease (principal); N18.9 Chronic kidney disease, unspecified; E87.5 Hyperkalemia; R73.03 Prediabetes; R79.89 Other specified abnormal findings of blood chemistry; R17 Unspecified jaundice; Z23 Encounter for immunization | CPT/HCPCS: 83036; 90471; 90656; 96127 ==

== ENCOUNTER 2025-10-04 07:00 | Outpatient (REF) | payer OTHER, SELFPAY ==
[2025-10-04 07:44] LABS: Hematocrit 47.5 % (42.0-52.0); Hemoglobin 16.6 g/dl (14.0-18.0); Mean Corpuscular HGB Conc 34.9 g/dl (31.0-36.0); Mean Corpuscular Hemoglobin 31.5 pg (27.0-33.0); Mean Corpuscular Volume 90.1 fL (80.0-98.0); NRBC Abs Auto 0.000 X10*3/uL (0.0-0.012); NRBC Pct Auto 0.0 /100WBC (0.0-0.2); Platelet Count 203 X10*3/uL (160-400); Red Blood Count 5.27 X10*6/uL (4.60-5.80); White Blood Count 4.8 X10*3/uL (4.8-10.8)
[2025-10-04 08:11] LABS: Anion Gap 13 (12-20); Blood Urea Nitrogen 10 mg/dL (9-16); Calcium 9.8 mg/dL (8.4-10.2); Carbon Dioxide 30 mmol/L (22-29); Chloride 105 mmol/L (96-108); Estimated Glomerular Filt Rate 57; Potassium 5.7 mmol/L (3.3-5.1); Sodium 142 mmol/L (135-145)
[2025-10-04 08:38] LABS: PSA,Total (Free>4and<10) 0.39 ng/mL (0.00-4.00)
== END 2025-10-04 07:01 | disposition home or self-care (01) ==
LOC: HO.LAB 07:00
PROVIDERS: PCP Internal Medicine; Visit Provider Physician Assistant Medical
DX: Z00.00 Encounter for general adult medical examination without abnormal findings (principal); Z12.5 Encounter for screening for malignant neoplasm of prostate
CPT/HCPCS: 36415; 80048; 84153; 85027

== ENCOUNTER 2025-10-09 06:58 | Outpatient (REF) | payer OTHER, SELFPAY ==
[2025-10-09 08:03] LABS: Alanine Aminotransferase 29 U/L (0-40); Albumin Level 4.4 g/dL (3.5-5.0); Alkaline Phosphatase 106 U/L (39-117); Anion Gap 17 (12-20); Aspartate Amino Transferase 30 U/L (5-37); Blood Urea Nitrogen 15 mg/dL (9-16); Calcium 9.7 mg/dL (8.4-10.2); Carbon Dioxide 23 mmol/L (22-29); Chloride 103 mmol/L (96-108); Estimated Glomerular Filt Rate 55; Magnesium 1.8 mg/dL (1.6-2.6); Potassium 5.0 mmol/L (3.3-5.1); Sodium 138 mmol/L (135-145); Total Protein 7.5 g/dL (6.5-8.0)
== END 2025-10-09 06:59 | disposition home or self-care (01) ==
LOC: HO.LAB 06:58
PROVIDERS: PCP Internal Medicine; Visit Provider Physician Assistant Medical
DX: Z00.00 Encounter for general adult medical examination without abnormal findings (principal)
CPT/HCPCS: 36415; 80053; 83735

== ENCOUNTER 2025-10-10 14:56 | Outpatient (AMB) | payer OTHER, SELFPAY ==
[2025-10-10 15:01] VITALS: BP 173/81; PULSE 86; RESP 14; TEMP 36.5; O2SAT 99; BMI 26.9
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
[2025-10-10 16:24] VITALS: BP 163/77; PULSE 72
== END 2025-10-10 15:37 | disposition home or self-care (01) ==
LOC: HO.HMCSH 14:57
PROVIDERS: PCP Physician Assistant Medical; Visit Provider Physician Assistant Medical
DX: I10 Essential (primary) hypertension (principal); R73.03 Prediabetes

== ENCOUNTER → 2025-10-10 14:56 | Outpatient (BNVA) | payer OTHER, SELFPAY | PROVIDERS: PCP Internal Medicine; Visit Provider Physician Assistant Medical | DX: I12.9 Hypertensive chronic kidney disease with stage 1 through stage 4 chronic kidney disease, or unspecified chronic kidney disease (principal); N18.9 Chronic kidney disease, unspecified; R73.03 Prediabetes; Z87.891 Personal history of nicotine dependence; Z13.31 Encounter for screening for depression | CPT/HCPCS: 96127 ==

== ENCOUNTER 2025-10-19 13:29 | Outpatient (AMB) | payer OTHER, SELFPAY ==
[2025-10-19 13:34] VITALS: BP 124/68; PULSE 67; BMI 26.2
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
== END 2025-10-19 13:54 | disposition home or self-care (01) ==
LOC: HO.HCS 13:29
PROVIDERS: PCP Internal Medicine; Visit Provider Internal Medicine
DX: I25.10 Atherosclerotic heart disease of native coronary artery without angina pectoris (principal); I10 Essential (primary) hypertension; E87.5 Hyperkalemia
CPT/HCPCS: 93010; 99214; G2211

== ENCOUNTER → 2025-10-19 13:29 | Outpatient (BNVA) | payer OTHER, SELFPAY | PROVIDERS: PCP Internal Medicine; Visit Provider Internal Medicine | DX: I25.10 Atherosclerotic heart disease of native coronary artery without angina pectoris (principal) | CPT/HCPCS: 93005 ==

== ENCOUNTER 2025-10-23 06:48 | Outpatient (REF) | payer OTHER, SELFPAY ==
[2025-10-23 08:46] LABS: Anion Gap 15 (12-20); Blood Urea Nitrogen 20 mg/dL (9-16); Calcium 9.8 mg/dL (8.4-10.2); Carbon Dioxide 27 mmol/L (22-29); Chloride 104 mmol/L (96-108); Estimated Glomerular Filt Rate 46; Magnesium 1.6 mg/dL (1.6-2.6); Potassium 5.1 mmol/L (3.3-5.1); Sodium 141 mmol/L (135-145)
[2025-10-23 08:51] LABS: Appearance Urine Clear; Glucose Urine UA Negative (Negative); PH 5.5 (5.0-9.0); Specific Gravity - Urine >= 1.030 (1.005-1.025); UMIC TRIGGER UACC YES
== END 2025-10-23 06:49 | disposition home or self-care (01) ==
LOC: HO.LAB 06:48
PROVIDERS: PCP Internal Medicine; Visit Provider Physician Assistant Medical
DX: Z00.00 Encounter for general adult medical examination without abnormal findings (principal)
CPT/HCPCS: 36415; 80048; 81001; 83735

== ENCOUNTER 2025-11-09 14:54 | Outpatient (AMB) | payer OTHER, SELFPAY ==
[2025-11-09 15:01] VITALS: BP 133/63; PULSE 72; RESP 14; TEMP 36.3; O2SAT 99; BMI 26.2
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
== END 2025-11-09 15:23 | disposition home or self-care (01) ==
LOC: HO.HMCSH 14:54
PROVIDERS: PCP Physician Assistant Medical; Visit Provider Physician Assistant Medical
DX: I12.9 Hypertensive chronic kidney disease with stage 1 through stage 4 chronic kidney disease, or unspecified chronic kidney disease (principal); N18.9 Chronic kidney disease, unspecified; E83.42 Hypomagnesemia; Z00.00 Encounter for general adult medical examination without abnormal findings

== ENCOUNTER → 2025-11-09 14:54 | Outpatient (BNVA) | payer OTHER, SELFPAY | PROVIDERS: PCP Physician Assistant Medical; Visit Provider Physician Assistant Medical | DX: I12.9 Hypertensive chronic kidney disease with stage 1 through stage 4 chronic kidney disease, or unspecified chronic kidney disease (principal); N18.9 Chronic kidney disease, unspecified; E83.42 Hypomagnesemia; Z13.31 Encounter for screening for depression | CPT/HCPCS: 96127 ==